=== PATIENT | female | born 1970 | race Caucasian/White ===

== ENCOUNTER → 2020-07-12 14:15 | Outpatient (CLI) | payer OTHER, MEDICAID, SELFPAY | PROVIDERS: Family Provider Nurse Practitioner Family; PCP Registered Nurse; Visit Provider Registered Nurse | DX: N39.0 Urinary tract infection, site not specified (principal) | CPT/HCPCS: 87077; 87086; 87186 ==

== ENCOUNTER 2020-11-09 13:13 | Emergency (ER) | payer OTHER, MEDICAID, SELFPAY ==
[2020-11-09 13:15] VITALS: BP 145/46; PULSE 92; RESP 16; TEMP 36.8; O2SAT 96; BMI 33.9
[2020-11-09 13:19] VITALS: BP 145/66; PULSE 106; O2SAT 94
--- NOTE | 2020-11-09 13:29 | ED.GENADULT ---
HPI - General Adult General Chief complaint: Shortness of Breath/Dyspnea Stated complaint: swelling in feet and legs Time Seen by Provider: 11/09/20 13:21 Source: patient Mode of arrival: Ambulatory Limitations: no limitations History of Present Illness HPI narrative: Patient is a 50-year-old female here for evaluation of bilateral lower extremity swelling. She states she has had swelling like this in the past and has been on hydrochlorothiazide in the past because of the swelling. This is prescribed by her primary provider. She has not been on for the past month because she ran out of the medication. States that normally his gets better when she goes home and 6 her feet up. Approximately 1 week ago she was seen in outside facility for strong smelling urine and the a cat bite to her right finger. She was put on Augmentin and she thinks that these symptoms have improved however she states that for the past several days she has had constant swelling in her lower legs despite keeping her legs elevated. No dyspnea on exertion however she states that she does get somewhat short of breath at night. No chest pain. Related Data Previous Rx's Medication Instructions Recorded hydrochlorothiazide 25 mg PO DAILY #30 tab 11/09/20 Allergies Allergy/AdvReac Type Severity Reaction Status Date / Time codeine [CODEINE] Allergy Mild Verified 11/09/20 13:21 ibuprofen [IBUPROFEN] AdvReac Mild HEADACHES Verified 11/09/20 13:21 Review of Systems Constitutional Constitutional: Denies fever(s) Cardiovascular Cardiovascular: Denies chest pain Respiratory Comments: Shortness of breath at night Gastrointestinal Gastrointestinal: Reports abdominal pain, Denies nausea and Denies vomiting Musculoskeletal Comments: Lower extremity swelling Integumentary/Breasts Skin/Breast: Denies rash Neurologic Neurologic: Denies behavioral changes Psychiatric Psychiatric: Denies behavioral changes Hematologic/Lymphatic On Anticoagulants: No Allergic/Immunologic Allergic/Immunologic: Denies urticaria Patient History Medical History (Updated 11/09/20 @ 14:59 by Abelardo Mayer DO) Breast cancer screening Colon cancer screening Essential (primary) hypertension Generalized edema Obesity (BMI 30.0-34.9) Telangiectasia of skin Social History Smoking Status: Current every day smoker Smoking Status: Current every day smoker alcohol intake frequency: holidays/special occasions only Substance Use Type: does not use Exam Initial Vital Signs Initial Vital Signs: Vital Signs Temperature 98.3 F 11/09/20 13:15 Pulse Rate 92 H 11/09/20 13:15 Respiratory Rate 16 11/09/20 13:15 Blood Pressure 145/46 H 11/09/20 13:15 Pulse Oximetry 96 11/09/20 13:15 Const General: cooperative and comfortable Limitations: mental status not altered HENMT Head: normal to inspection and normocephalic Resp Effort & Inspection: normal respiratory effort Auscultation: clear to auscultation bilaterally Cardio Rate: tachycardic Rhythm: regular rhythm GI Inspection: non-distended Palpation: soft Skin Lesions: no lesions Rashes: no rashes Neuro General: patient alert, patient awake and patient oriented x3 Cognition: normal cognition Speech: speech normal Extrem General: edema (2+ bilateral lower extremities) Psych Appearance: grossly normal and well kempt Course Orders Ordered: ED Orders 11/09/20 13:28 XR chest 1V Stat EKG-12 Lead Stat 11/09/20 13:45 Complete Blood Count AUTO DIFF Stat Comprehensive Metabolic Panel Stat Lipase Stat NT-proBNP (BNP-Adult 18+) Stat Troponin & CK Cardiac Panel Stat Vital Signs Vital signs: Vital Signs - 8 hr 11/09/20 13:15 11/09/20 13:19 Temperature 98.3 F Pulse Rate 92 H 106 H Respiratory Rate 16 Blood Pressure 145/46 H 145/66 H Pulse Oximetry 96 94 Medical Decision Making Medical Records Medical records reviewed: Yes I reviewed the patient's medical records. Lab Data Lab results reviewed: Yes I reviewed the patient's lab results. Result diagrams: 11/09/20 13:45 11/09/20 13:45 Labs: Lab Results 11/09/20 11/09/20 Range/Units 13:45 13:45 WBC 5.0 (4.5-11.0) X10^3/uL RBC 3.62 L (4.0-5.2) X10^6/uL Hgb 11.0 L (12.0-16.0) g/dL Hct 33.5 L (36-46) % MCV 92.5 (80-100) fL MCH 30.4 (26-34) PG MCHC 32.9 (30-36) % RDW 15.0 H (11.6-14.8) % Plt Count 89 L (150-400) X10^3/uL Neut % (Auto) 47.8 L (50-75) % Lymph % (Auto) 44.3 H (25-40) % [place] % (Auto) 6.5 (3-14) % Eos % (Auto) 0.9 L (2-4) % Baso % (Auto) 0.5 (0-2) % Neut # (Auto) 2400 (0609-8534) /uL Lymph # (Auto) 2200 (9147-1515) /uL [place] # (Auto) 300 (0-900) /uL Eos # (Auto) 0 (0-450) /uL Baso # (Auto) 0 (0-100) /uL Sodium 136 L (137-145) mmol/L Potassium 3.7 (3.4-5.1) mmol/L Chloride 108 H (98-107) mmol/L Carbon Dioxide 28 (22-32) mmol/L BUN 9 (7-17) mg/dL Creatinine 0.37 L (0.52-1.04) mg/dL Estimated GFR > 60.0 (>60) mL/min BUN/Creatinine Ratio 24.3 H (6-22) Glucose 130 H (70-100) mg/dL Calcium 7.8 L (8.4-10.2) mg/dL Total Bilirubin 0.8 (0.2-1.3) mg/dL AST 425 H (14-36) IU/L ALT 374 H (<35) IU/L Alkaline Phosphatase 186 H (38-126) U/L Total Creatine Kinase 114 (30-135) U/L CK-MB (CK-2) 1.12 (<2.37) ng/mL CK-MB (CK-2) Rel Index 1.0 L (1.5-5.0) % Troponin I < 0.012 (0.01-0.034) ng/mL NT-Pro-B Natriuret Pep 161 H (<125) pg/mL Total Protein 6.3 (6.3-8.2) g/dL Albumin 2.9 L (3.5-5.0) g/dL Globulin 3.4 (1.7-4.1) g/dL Albumin/Globulin Ratio 0.9 L (1.0-2.8) Lipase 105 (23-300) U/L Imaging Data Chest x-ray: Radiologist's Impression: [facility] [place] [id number] ReportSigned Patient: [facility]#: [id number]: [id number]:[id number]/Sex: 50 / FDate of Service: 11/09/20Loc: EDAccession Number: [id number] Procedure: XR chest 1V Ordering Provider: Abelardo Mayer D.O. PROCEDURE: XR CHEST 1V INDICATIONS: SOB TECHNIQUE: One view of the chest was acquired. COMPARISON: [facility], CHEST 2 VIEW, 07/08/2013, 15:55. FINDINGS: Overlying EKG wires. Surgical changes and devices: None. Lungs and pleura: Lungs are clear. No pleural effusions or pneumothorax. Mediastinum: Mediastinal contours appear normal. Heart size is normal. Bones and chest wall: No suspicious bony lesions. Remote right-sided 7th rib fracture. Previously noted left sided rib fracture not well evaluated. No acute osseous abnormality. Overlying soft tissues appear unremarkable. IMPRESSION: No evidence of an acute cardiopulmonary abnormality. Dictated by: Marcial Thomas D.O. on 11/09/2020 at 13:24 Approved by: Marcial Thomas D.O. on 11/09/2020 at 13:26 ECG Data Attestation: I personally reviewed and interpreted this ECG as follows: Prior ECG tracings: not available for review Interpretation: Sinus rhythm Ventricular rate 82 Normal axis Normal QRS Normal QTC No ST T wave changes MDM Narrative Medical decision making narrative: Patient not clinically in heart failure. Her labs also do not confirm our failure. She does have an elevated liver enzymes. She states she has never been told this before. EKG is unremarkable. She has had lower extremity swelling in the past. Plan will be is to place her back on her hydrochlorothiazide. This is like chronically transmitted the pharmacy of her choice. Will have her contact her primary provider for follow-up with regard to her lower extremity swelling and her elevated liver enzymes. I have low suspicion for DVT. No signs of cellulitis. She was given return precautions. She expressed understanding and agreement. Discharge Plan Departure Patient Disposition: Home Clinical Impression: Edema of lower extremity, Elevated liver enzymes Instructions: DI for Peripheral Edema -- Bilateral Activity Restrictions/Additional Instructions: A prescription for the hydrochlorothiazide is electronically transmitted to [facility] per your request. I recommend you contact your primary provider for follow-up to discuss here lower extremity swelling and also the elevated liver enzymes on your labs today. Return to the emergency department for any new or worsening symptoms Prescriptions: New hydrochlorothiazide 25 mg tablet 25 mg PO DAILY Qty: 30 RF: 0 Referrals: Margaret Escudero ARNP [Primary Care Provider] -
[2020-11-09 13:30] VITALS: BP 129/62; PULSE 84; O2SAT 97
[2020-11-09 13:54] LABS: Add Manual Diff / Slide Review NO; Basophils Absolute Auto 0 /uL (0-100); Basophils Percent Auto 0.5 % (0-2); Eosinophils Absolute Auto 0 /uL (0-450); Eosinophils Percent Auto 0.9 % (2-4); Hematocrit 33.5 % (36-46); Lymphocytes Absolute Auto 2200 /uL (1100-4500); Lymphocytes Percent Auto 44.3 % (25-40); Mean Corpuscular HGB Conc 32.9 % (30-36); Mean Corpuscular Hemoglobin 30.4 PG (26-34); Mean Corpuscular Volume 92.5 fL (80-100); Monocytes Absolute Auto 300 /uL (0-900); Monocytes Percent Auto 6.5 % (3-14); Neutrophils Absolute Auto 2400 /uL (1500-7000); Neutrophils Percent Auto 47.8 % (50-75); Platelet Count 89 X10^3/uL (150-400); Red Blood Cell Count 3.62 X10^6/uL (4.0-5.2)
[2020-11-09 14:00] VITALS: BP 126/63; PULSE 75; O2SAT 99
[2020-11-09 14:06] LABS: Alanine Aminotransferase 374 IU/L (<35); Albumin 2.9 g/dL (3.5-5.0); Albumin Globulin Ratio 0.9 (1.0-2.8); Alkaline Phosphatase 186 U/L (38-126); Aspartate Aminotransferase 425 IU/L (14-36); BUN Creatinine Ratio 24.3 (6-22); Bilirubin Total 0.8 mg/dL (0.2-1.3); Blood Urea Nitrogen 9 mg/dL (7-17); Calcium 7.8 mg/dL (8.4-10.2); Carbon Dioxide 28 mmol/L (22-32); Chloride 108 mmol/L (98-107); Creatine Kinase 114 U/L (30-135); Estimated Glomerular Filt Rate > 60.0 mL/min (>60); Globulin 3.4 g/dL (1.7-4.1); Glucose 130 mg/dL (70-100); HEMOLYSIS < 15 (0-50); Lipase 105 U/L (23-300); Potassium 3.7 mmol/L (3.4-5.1); Sodium 136 mmol/L (137-145); Total Protein 6.3 g/dL (6.3-8.2)
[2020-11-09 14:18] LABS: NT-proBNP (BNP-Adult 18+) 161 pg/mL (<125); Troponin I < 0.012 ng/mL (0.01-0.034)
[2020-11-09 14:21] LABS: Creatine Kinase MB 1.12 ng/mL (<2.37)
[2020-11-09 14:30] VITALS: BP 135/70; PULSE 74; O2SAT 100
== END 2020-11-09 15:20 | disposition home or self-care (01) ==
PROVIDERS: Emergency Provider Emergency Medicine; Family Provider Nurse Practitioner Family; PCP Registered Nurse
DX: R60.0 Localized edema (principal); R74.8 Abnormal levels of other serum enzymes; R06.02 Shortness of breath; R10.9 Unspecified abdominal pain; I10 Essential (primary) hypertension; E66.9 Obesity, unspecified; Z68.33 Body mass index [BMI] 33.0-33.9, adult
CPT/HCPCS: 36415; 71045; 80053; 82550; 82553; 83690; 83880; 84484; 85025; 93005; 93010; 99283; 99284

== ENCOUNTER → 2020-12-06 09:19 | Outpatient (CLI) | payer OTHER, MEDICAID, SELFPAY ==
[2020-12-06 09:52] LABS: Add Manual Diff / Slide Review NO; Basophils Absolute Auto 0 /uL (0-100); Basophils Percent Auto 0.5 % (0-2); Eosinophils Absolute Auto 0 /uL (0-450); Eosinophils Percent Auto 0.7 % (2-4); Hematocrit 36.5 % (36-46); Hemoglobin 12.1 g/dL (12.0-16.0); Lymphocytes Absolute Auto 2000 /uL (1100-4500); Lymphocytes Percent Auto 41.2 % (25-40); Mean Corpuscular Hemoglobin 30.2 PG (26-34); Mean Corpuscular Volume 91.2 fL (80-100); Monocytes Absolute Auto 300 /uL (0-900); Monocytes Percent Auto 6.2 % (3-14); Neutrophils Absolute Auto 2500 /uL (1500-7000); Neutrophils Percent Auto 51.4 % (50-75); Platelet Count 96 X10^3/uL (150-400); Red Cell Distribution Width 14.5 % (11.6-14.8); White Blood Cell Count 4.8 X10^3/uL (4.5-11.0)
[2020-12-06 10:04] LABS: Alanine Aminotransferase 420 IU/L (<35); Albumin 3.3 g/dL (3.5-5.0); Albumin Globulin Ratio 0.9 (1.0-2.8); Alkaline Phosphatase 193 U/L (38-126); Aspartate Aminotransferase 528 IU/L (14-36); BUN Creatinine Ratio 26.5 (6-22); Bilirubin Total 1.6 mg/dL (0.2-1.3); Blood Urea Nitrogen 13 mg/dL (7-17); Calcium 8.5 mg/dL (8.4-10.2); Carbon Dioxide 30 mmol/L (22-32); Chloride 105 mmol/L (98-107); Cholesterol 200 mg/dL (140-199); Estimated Glomerular Filt Rate > 60.0 mL/min (>60); Globulin 3.6 g/dL (1.7-4.1); Glucose 109 mg/dL (70-100); HDL Cholesterol 82 mg/dL (40-60); HEMOLYSIS < 15 (0-50); LDL Cholesterol Calculated 106 mg/dL (<100); Potassium 3.3 mmol/L (3.4-5.1); Sodium 136 mmol/L (137-145); Total Protein 6.9 g/dL (6.3-8.2); Triglycerides 58 mg/dL (35-150)
[2020-12-06 10:37] LABS: Ferritin 20 ng/mL (11-264)
[2020-12-06 10:44] LABS: Total Iron Binding Capacity 533 ug/dL (265-497)
[2020-12-06 10:53] LABS: Free T4, Direct Thyroxine 0.89 ng/dL (0.78-2.19)
[2020-12-06 11:07] LABS: Thyroid Stimulating Hormone 1.61 uIU/mL (0.47-4.68)
[2020-12-16 17:51] LABS: HBsAg Screen Negative (Negative); Hepatitis A Antibody IgM Negative (Negative); Hepatitis B Core Antibody IgM Negative (Negative); Hepatitis C Antibody >11.0 s/co ratio (0.0-0.9); Hepatitis C Quant 309000 IU/mL (.)
== END ==
PROVIDERS: Family Provider Nurse Practitioner Family; PCP Registered Nurse; Referring Provider Registered Nurse; Visit Provider Registered Nurse
DX: R53.83 Other fatigue (principal); E66.9 Obesity, unspecified; I10 Essential (primary) hypertension; R60.1 Generalized edema; D64.9 Anemia, unspecified; R74.8 Abnormal levels of other serum enzymes
CPT/HCPCS: 36415; 80053; 80061; 80074; 82105; 82728; 83550; 84439; 84443; 85025; 87522

== ENCOUNTER → 2020-12-19 11:40 | Outpatient (CLI) | payer OTHER, MEDICAID, SELFPAY ==
--- NOTE | 2020-12-19 | DI.CT.S_ITS ---
PROCEDURE: CT ABDOMEN W CON INDICATIONS: Elevated liver enzymes. Abnormal labs TECHNIQUE: After the administration of intravenous contrast, 5 mm thick sections acquired from the diaphragm to the iliac crests. 5 mm coronal and sagittal reformats were performed. For radiation dose reduction, the following was used: automated exposure control, adjustment of mA and/or kV according to patient size. COMPARISON: [facility], CT, PE STUDY (CTA CHEST), 01/01/2012, 19:54. FINDINGS: Image quality: Excellent. Lung bases: Lung bases are clear. Heart size is normal. Small hiatal hernia. Solid organs: Liver is normal in size and enhancement. Subtle nodular contour of liver suggesting cirrhosis. Gallbladder is normal . Biliary system is non dilated. Pancreas enhances normally. Spleen is mildly enlarged. Calcific foci in liver and spleen are compatible with old granulomas. No adrenal nodules. Kidneys demonstrate normal size and enhancement, without hydronephrosis. Peritoneum and bowel: There is gastric antral thickening. Bowel loops demonstrate normal wall thickness and caliber. There is a trace amount of free fluid around the liver and in the right pericolic gutter. No free air. Nodes and vessels: No retroperitoneal or mesenteric adenopathy by size criteria. Aorta and inferior vena cava are normal in size. Miscellaneous: A small fat containing umbilical hernia is noted. There are old 9th and 10th rib fractures. Mild degenerative changes noted in the lower thoracic and lumbar spine. Benign appearing sclerosis of the left sacral ala may be secondary to old trauma. IMPRESSION: 1. Liver demonstrates subtle nodular contour suggesting cirrhosis. 2. Mild splenomegaly. 3. Calcific foci in the liver and spleen are consistent with remote granulomatous disease. 4. Gastric antral thickening. This finding may be secondary to peptic ulcer disease. Recommend clinical correlation and follow-up. Dictated by: Gina Saldaña M.D. on 12/19/2020 at 12:52 Approved by: Gina Saldaña M.D. on 12/19/2020 at 12:59
== END ==
PROVIDERS: Family Provider Nurse Practitioner Family; PCP Registered Nurse; Referring Provider Registered Nurse; Visit Provider Registered Nurse
DX: R74.8 Abnormal levels of other serum enzymes (principal); R16.1 Splenomegaly, not elsewhere classified
CPT/HCPCS: 74160; Q9967

== ENCOUNTER 2021-01-14 14:41 | Emergency (ER) | payer OTHER, MEDICAID, SELFPAY ==
[2021-01-14 14:48] VITALS: BP 124/58; PULSE 102; RESP 20; TEMP 36.8; O2SAT 98
--- NOTE | 2021-01-14 15:03 | ED.ABDPAIN ---
HPI - Abdominal Pain General Chief Complaint: Abdominal Pain Stated Complaint: pain in stomach Time Seen by Provider: 01/14/21 15:01 Source: patient Mode of arrival: Ambulatory Limitations: no limitations History of Present Illness HPI narrative: 50-year-old female smoker has recently been diagnosed with hepatitis C and cirrhotic changes to her liver presents with a chief complaint of severe left lower quadrant pain over the past day. She has had no fever or chills. She denies any dizziness, weakness or lightheadedness. She has had no chest pain or shortness of breath. Her pain is made worse by motion and improves with rest. She denies any radiation of pain. She's had no diarrhea or even loose stools Related Data Previous Rx's Medication Instructions Recorded hydrochlorothiazide 25 mg tablet 25 mg PO DAILY #30 tab 12/06/20 ondansetron 4 mg disintegrating 4 mg PO Q8H PRN 30 Days #90 tab 12/30/20 tablet amoxicillin-pot clavulanate 1 tab PO BID #20 tab 01/14/21 [Augmentin] oxycodone 5 mg PO Q4-6H PRN #10 tab 01/14/21 Allergies Allergy/AdvReac Type Severity Reaction Status Date / Time codeine [CODEINE] Allergy Mild Verified 12/06/20 08:41 ibuprofen [IBUPROFEN] AdvReac Mild HEADACHES Verified 12/06/20 08:41 Review of Systems Constitutional Constitutional: Denies chills, Denies fatigue, Denies fever(s), Denies frequent falls, Denies lethargy and Denies weakness Eyes Eyes: Denies change in vision, Denies eye discharge, Denies irritation and Denies loss of vision ENT Ears, Nose, Mouth, and Throat: Denies change in voice, Denies dizziness, Denies neck pain, Denies sore throat and Denies throat swelling Cardiovascular Cardiovascular: Denies chest pain, Denies irregular heart rhythm, Denies lightheadedness, Denies palpitations, Denies dyspnea, Denies dyspnea on exertion and Denies orthopnea Respiratory Respiratory: Denies cough, Denies dyspnea, Denies dyspnea on exertion and Denies wheezing Gastrointestinal Gastrointestinal: Reports abdominal pain, Denies change in bowel habits, Denies diarrhea, Denies nausea and Denies vomiting Musculoskeletal Musculoskeletal: Denies neck pain and Denies numbness Integumentary/Breasts Skin/Breast: Denies pruritus, Denies erythema, Denies rash and Denies wounds Neurologic Neurologic: Denies behavioral changes, Denies confusion, Denies dizziness, Denies frequent falls, Denies loss of vision, Denies numbness and Denies weakness Psychiatric Psychiatric: Denies anxiety, Denies behavioral changes, Denies confusion, Denies depression, Denies homicidal ideation and Denies suicidal ideation Endocrine Endocrine: Denies fatigue, Denies flushing and Denies palpitations Hematologic/Lymphatic Hematologic/Lymphatic: Denies easy bruising Allergic/Immunologic Allergic/Immunologic: Denies urticaria, Denies throat swelling and Denies wheezing Patient History Medical History (Updated 01/14/21 @ 17:04 by Osbaldo Mayes DO) Breast cancer screening Colon cancer screening Essential (primary) hypertension Generalized edema Obesity (BMI 30.0-34.9) Telangiectasia of skin Social History Smoking Status: Current every day smoker Smoking Status: Current every day smoker alcohol intake frequency: holidays/special occasions only Substance Use Type: does not use Exam Narrative Exam Narrative: GENERAL: [50] year old patient appears stated age. Well-nourished, well-developed patient, in mild distress. HEAD: Atraumatic. Normocephalic. EYES: Pupils equal round and reactive. Extraocular motions intact. No scleral icterus. No injection or drainage. ENT: Nose without bleeding, purulent drainage. Throat without erythema, tonsillar hypertrophy or exudate. Airway patent. NECK: Trachea midline. Non tender CARDIOVASCULAR: Regular rate and rhythm without murmurs, gallops, or rubs. RESPIRATORY: Clear to auscultation. Breath sounds equal bilaterally. No wheezes, rales, or rhonchi. GASTROINTESTINAL: Abdomen soft, left lower quadrant tenderness without rebound, nondistended. Bowel sounds present in all 4 quadrants EXTREMITIES: No edema or joint tenderness. BACK: Nontender without deformity or crepitance. No flank tenderness. NEURO: AOx3. SKIN: No rash or erythema of visible areas Initial Vital Signs Initial Vital Signs: Vital Signs Temperature 98.2 F 01/14/21 14:48 Pulse Rate 102 H 01/14/21 14:48 Respiratory Rate 20 01/14/21 14:48 Blood Pressure 124/58 L 01/14/21 14:48 Pulse Oximetry 98 01/14/21 14:48 Course Orders Ordered: ED Orders 01/14/21 15:00 Complete Blood Count AUTO DIFF Stat Comprehensive Metabolic Panel Stat Lipase Stat Partial Thromboplastin Time Stat Prothrombin Time INR Stat EKG-12 Lead Stat 01/14/21 15:20 UA Complete [Urinalysis and Microscopic] Stat 01/14/21 15:23 CT abdomen pelvis w con Stat Ondansetron HCl (Ondansetron 4 Mg/2 Ml Inj) 4 mg IV Q4HR PRN PRN Reason: Nausea And Vomiting Last Admin: 01/14/21 15:38 Dose: 4 mg Documented by: YESENIA Discontinued Medications Hydromorphone HCl (Hydromorphone 0.5 Mg Inj) 0.5 mg IV NOW ONE Stop: 01/14/21 15:25 Last Admin: 01/14/21 15:38 Dose: 0.5 mg Documented by: YESENIA Sodium Chloride (Normal Saline 0.9%) 1,000 mls @ 1,000 mls/hr IV BOLUS ONE Stop: 01/14/21 16:23 Last Admin: 01/14/21 15:38 Dose: 1,000 mls/hr Documented by: YESENIA Vital Signs Vital signs: Vital Signs - 8 hr 01/14/21 14:48 Temperature 98.2 F Pulse Rate 102 H Respiratory Rate 20 Blood Pressure 124/58 L Pulse Oximetry 98 MDM - Abdominal Pain Lab Data Result diagrams: 01/14/21 15:00 01/14/21 15:00 Labs: Lab Results 01/14/21 01/14/21 01/14/21 Range/Units 15:00 15:00 15:00 WBC 6.3 (4.5-11.0) X10^3/uL RBC 4.07 (4.0-5.2) X10^6/uL Hgb 12.1 (12.0-16.0) g/dL Hct 37.1 (36-46) % MCV 91.1 (80-100) fL MCH 29.7 (26-34) PG MCHC 32.5 (30-36) % RDW 15.2 H (11.6-14.8) % Plt Count 99 L (150-400) X10^3/uL Neut % (Auto) 58.1 (50-75) % Lymph % (Auto) 33.6 (25-40) % [place] % (Auto) 7.4 (3-14) % Eos % (Auto) 0.5 L (2-4) % Baso % (Auto) 0.4 (0-2) % Neut # (Auto) 3600 (9168-1495) /uL Lymph # (Auto) 2100 (6917-7632) /uL [place] # (Auto) 500 (0-900) /uL Eos # (Auto) 0 (0-450) /uL Baso # (Auto) 0 (0-100) /uL PT 12.5 (10.1-12.7) SECONDS INR 1.1 (0.9-1.3) APTT 39 H (26.4-36.2) SECONDS Sodium 137 (137-145) mmol/L Potassium 3.4 (3.4-5.1) mmol/L Chloride 103 (98-107) mmol/L Carbon Dioxide 30 (22-32) mmol/L BUN 13 (7-17) mg/dL Creatinine 0.51 L (0.52-1.04) mg/dL Estimated GFR > 60.0 (>60) mL/min BUN/Creatinine Ratio 25.5 H (6-22) Glucose 108 H (70-100) mg/dL Calcium 8.9 (8.4-10.2) mg/dL Total Bilirubin 1.1 (0.2-1.3) mg/dL AST 527 H (14-36) IU/L ALT 386 H (<35) IU/L Alkaline Phosphatase 181 H (38-126) U/L Total Protein 6.8 (6.3-8.2) g/dL Albumin 3.3 L (3.5-5.0) g/dL Globulin 3.5 (1.7-4.1) g/dL Albumin/Globulin Ratio 0.9 L (1.0-2.8) Lipase 109 (23-300) U/L Urine Color Urine Appearance Urine pH (4.5-8.0) Ur Specific [place] (1.000-1.035) Urine Protein (Negative) Urine Glucose (UA) (Negative) g/dL Urine Ketones (NEGATIVE) Urine Occult Blood (Negative) Urine Nitrate (Negative) Urine Bilirubin (NEGATIVE) Urine Urobilinogen (0.2) E.U./dL Ur Leukocyte Esterase (NEGATIVE) Urine RBC (0-5/HPF) Urine WBC (0-5/HPF) Ur Squamous Epith Cells (0-5/HPF) Amorphous Sediment Urine Bacteria (None) Hyaline Casts (None) Granular Casts (None) Ur Culture Indicated? 01/14/21 Range/Units 15:20 WBC (4.5-11.0) X10^3/uL RBC (4.0-5.2) X10^6/uL Hgb (12.0-16.0) g/dL Hct (36-46) % MCV (80-100) fL MCH (26-34) PG MCHC (30-36) % RDW (11.6-14.8) % Plt Count (150-400) X10^3/uL Neut % (Auto) (50-75) % Lymph % (Auto) (25-40) % [place] % (Auto) (3-14) % Eos % (Auto) (2-4) % Baso % (Auto) (0-2) % Neut # (Auto) (5475-8267) /uL Lymph # (Auto) (2567-1792) /uL [place] # (Auto) (0-900) /uL Eos # (Auto) (0-450) /uL Baso # (Auto) (0-100) /uL PT (10.1-12.7) SECONDS INR (0.9-1.3) APTT (26.4-36.2) SECONDS Sodium (137-145) mmol/L Potassium (3.4-5.1) mmol/L Chloride (98-107) mmol/L Carbon Dioxide (22-32) mmol/L BUN (7-17) mg/dL Creatinine (0.52-1.04) mg/dL Estimated GFR (>60) mL/min BUN/Creatinine Ratio (6-22) Glucose (70-100) mg/dL Calcium (8.4-10.2) mg/dL Total Bilirubin (0.2-1.3) mg/dL AST (14-36) IU/L ALT (<35) IU/L Alkaline Phosphatase (38-126) U/L Total Protein (6.3-8.2) g/dL Albumin (3.5-5.0) g/dL Globulin (1.7-4.1) g/dL Albumin/Globulin Ratio (1.0-2.8) Lipase (23-300) U/L Urine Color Yellow Urine Appearance Clear Urine pH 7.0 (4.5-8.0) Ur Specific [place] 1.025 (1.000-1.035) Urine Protein Trace H (Negative) Urine Glucose (UA) Negative (Negative) g/dL Urine Ketones Negative (NEGATIVE) Urine Occult Blood Negative (Negative) Urine Nitrate Negative (Negative) Urine Bilirubin Negative (NEGATIVE) Urine Urobilinogen 2.0 H (0.2) E.U./dL Ur Leukocyte Esterase Negative (NEGATIVE) Urine RBC None seen (0-5/HPF) Urine WBC 0-1/hpf (0-5/HPF) Ur Squamous Epith Cells 0-1 /hpf (0-5/HPF) Amorphous Sediment 1+ Urine Bacteria None seen (None) Hyaline Casts 0-1/lpf (None) Granular Casts 0-1/lpf (None) Ur Culture Indicated? Cult not indicated Imaging Data CT scan - abdomen/pelvis: Radiologist's Impression: [address] [id number] Scan ReportSigned Patient: Lana Felix SMR#: [id number]: [id number]:[id number]/Sex: 50 / FDate of Service: 01/14/21Loc: EDAccession Number: [id number] Procedure: CT abdomen pelvis w con Ordering Provider: Osbaldo Mayes D.O. PROCEDURE: CT ABDOMEN PELVIS W CON INDICATIONS: LLQ pain, diarrhea, bloody, terrible pain TECHNIQUE: After the administration of intravenous contrast, 5 mm thick sections acquired from the diaphragm to the symphysis. 5 mm coronal and sagittal reformats were acquired. For radiation dose reduction, the following was used: automated exposure control, adjustment of mA and/or kV according to patient size. COMPARISON: [facility], CT, CT ABDOMEN W CON, 12/19/2020, 11:43. [facility], CT, PE STUDY (CTA CHEST), 01/01/2012, 19:54. FINDINGS: Image quality: Excellent. ABDOMEN: Lung bases: Lung bases are clear. Heart size is normal. A small hiatal hernia is incidentally noted. Solid organs: Liver is normal in size and enhancement. Gallbladder wall is not thickened. Minimal pericholecystic fluid can be seen. Biliary system is non dilated. Pancreas enhances normally. Spleen is normal in size and enhancement. No adrenal nodules. Kidneys demonstrate normal size and enhancement, without hydronephrosis. Peritoneum and bowel: Generalized moderate wall thickening can be seen involving the proximal colon, beginning at the level of the cecum and extending through the proximal transverse colon. Surrounding inflammatory changes are seen, with fat stranding. No free air or significant free fluid can be seen. No loculated abscess collection can be seen. No dilated loops of small bowel are seen. No definite terminal ileum wall thickening can be seen. A normal appendix can be seen, as on series 2 images 62 through 66 Nodes and vessels: No retroperitoneal or mesenteric adenopathy by size criteria. Aorta and inferior vena cava are normal in size. Miscellaneous: A mild periumbilical hernia is seen, containing fat. PELVIS: Genitourinary: Bladder wall thickness is normal. This patient is status post hysterectomy. No adnexal masses are seen. Miscellaneous: No inguinal hernias or adenopathy. Bones: No suspicious bony lesions. No vertebral body compression fractures. Focal L2-L3 degenerative change is seen. Milder degenerative changes are seen elsewhere. IMPRESSION: Proximal colonic wall thickening can be seen. Please correlate with potential infectious and inflammatory causes of colitis, including C. difficile colitis. The appearance is clearly improved compared to the 12/19/2020 examination. No findings of perforation or abscess can be seen. A normal appendix is seen. Minimal pericholecystic fluid can again be seen. Incidental note is made of: Small hiatal hernia Fat containing periumbilical hernia Hysterectomy Focal L2-L3 degenerative change Dictated by: Nigel Aguilar M.D. on 01/14/2021 at 15:15 Approved by: Nigel Aguilar M.D. on 01/14/2021 at 15:20 MDM Narrative Medical decision making narrative: Colitis and diverticulitis considered the most likely diagnoses given the patient's story and exam. This is consistent with labs and imaging. There is some discussion about the possibility of C diff colitis on the CT, however given lack of loose stools or even leukocytosis this is unlikely. I did discuss various possible diagnoses with the patient and she agrees with the plan and understands return precautions. Questions answered to her apparent satisfaction Discharge Plan Departure Patient Disposition: Home Clinical Impression: Colitis Instructions: DI for Colitis Activity Restrictions/Additional Instructions: *You have been diagnosed with [left lower quadrant pain due to colitis. Labs are very reassuring] *What to do: *Take medications as directed: Prescriptions electronically transmitted to [facility] in [place] *Follow up with your primary care provider in 2-3 days, call for an appointment. Let them know you were seen in the Emergency Department and that we ask that you be seen in follow up *Return to ER if you should have any new, worsening or concerning symptoms, such as [increasing pain, fever, shaking chills, other bothersome symptoms] Prescriptions: New amoxicillin-pot clavulanate [Augmentin] 875-125 mg tablet 1 tab PO BID Qty: 20 RF: 0 oxycodone 5 mg tablet 5 mg PO Q4-6H PRN (Reason: pain) Qty: 10 RF: 0 No Action hydrochlorothiazide 25 mg tablet 25 mg PO DAILY Qty: 30 RF: 2 ondansetron 4 mg tablet,disintegrating 4 mg PO Q8H PRN (Reason: nausea and vomiting) 30 Days Qty: 90 RF: 0 Referrals: Margaret Escudero ARNP [Primary Care Provider] -
--- NOTE | 2021-01-14 15:23 | DI.CT.S_ITS ---
PROCEDURE: CT ABDOMEN PELVIS W CON INDICATIONS: LLQ pain, diarrhea, bloody, terrible pain TECHNIQUE: After the administration of intravenous contrast, 5 mm thick sections acquired from the diaphragm to the symphysis. 5 mm coronal and sagittal reformats were acquired. For radiation dose reduction, the following was used: automated exposure control, adjustment of mA and/or kV according to patient size. COMPARISON: [facility], CT, CT ABDOMEN W CON, 12/19/2020, 11:43. [facility], CT, PE STUDY (CTA CHEST), 01/01/2012, 19:54. FINDINGS: Image quality: Excellent. ABDOMEN: Lung bases: Lung bases are clear. Heart size is normal. A small hiatal hernia is incidentally noted. Solid organs: Liver is normal in size and enhancement. Gallbladder wall is not thickened. Minimal pericholecystic fluid can be seen. Biliary system is non dilated. Pancreas enhances normally. Spleen is normal in size and enhancement. No adrenal nodules. Kidneys demonstrate normal size and enhancement, without hydronephrosis. Peritoneum and bowel: Generalized moderate wall thickening can be seen involving the proximal colon, beginning at the level of the cecum and extending through the proximal transverse colon. Surrounding inflammatory changes are seen, with fat stranding. No free air or significant free fluid can be seen. No loculated abscess collection can be seen. No dilated loops of small bowel are seen. No definite terminal ileum wall thickening can be seen. A normal appendix can be seen, as on series 2 images 62 through 66 Nodes and vessels: No retroperitoneal or mesenteric adenopathy by size criteria. Aorta and inferior vena cava are normal in size. Miscellaneous: A mild periumbilical hernia is seen, containing fat. PELVIS: Genitourinary: Bladder wall thickness is normal. This patient is status post hysterectomy. No adnexal masses are seen. Miscellaneous: No inguinal hernias or adenopathy. Bones: No suspicious bony lesions. No vertebral body compression fractures. Focal L2-L3 degenerative change is seen. Milder degenerative changes are seen elsewhere. IMPRESSION: Proximal colonic wall thickening can be seen. Please correlate with potential infectious and inflammatory causes of colitis, including C. difficile colitis. The appearance is clearly improved compared to the 12/19/2020 examination. No findings of perforation or abscess can be seen. A normal appendix is seen. Minimal pericholecystic fluid can again be seen. Incidental note is made of: Small hiatal hernia Fat containing periumbilical hernia Hysterectomy Focal L2-L3 degenerative change Dictated by: Nigel Aguilar M.D. on 01/14/2021 at 15:15 Approved by: Nigel Aguilar M.D. on 01/14/2021 at 15:20
[2021-01-14 15:31] LABS: Add Manual Diff / Slide Review NO; Basophils Absolute Auto 0 /uL (0-100); Basophils Percent Auto 0.4 % (0-2); Eosinophils Absolute Auto 0 /uL (0-450); Eosinophils Percent Auto 0.5 % (2-4); Hematocrit 37.1 % (36-46); Hemoglobin 12.1 g/dL (12.0-16.0); Lymphocytes Absolute Auto 2100 /uL (1100-4500); Lymphocytes Percent Auto 33.6 % (25-40); Mean Corpuscular HGB Conc 32.5 % (30-36); Mean Corpuscular Hemoglobin 29.7 PG (26-34); Mean Corpuscular Volume 91.1 fL (80-100); Monocytes Absolute Auto 500 /uL (0-900); Monocytes Percent Auto 7.4 % (3-14); Neutrophils Absolute Auto 3600 /uL (1500-7000); Neutrophils Percent Auto 58.1 % (50-75); Platelet Count 99 X10^3/uL (150-400); Red Blood Cell Count 4.07 X10^6/uL (4.0-5.2); Red Cell Distribution Width 15.2 % (11.6-14.8); White Blood Cell Count 6.3 X10^3/uL (4.5-11.0)
[2021-01-14] MEDS: HYDROMORPHONE 0.5 MG INJ IV (15:38)
[2021-01-14] MEDS: ONDANSETRON 4 MG/2 ML INJ IV (15:38)
[2021-01-14] MEDS: SODIUM CHLORIDE 0.9% 1,000 ML 1000 ML IV (15:38)
[2021-01-14 15:41] LABS: INR 1.1 (0.9-1.3); Prothrombin Time 12.5 SECONDS (10.1-12.7)
[2021-01-14 15:43] LABS: PTT Partial Thromboplastin Tim 39 SECONDS (26.4-36.2)
[2021-01-14 15:45] LABS: Alanine Aminotransferase 386 IU/L (<35); Albumin 3.3 g/dL (3.5-5.0); Albumin Globulin Ratio 0.9 (1.0-2.8); Alkaline Phosphatase 181 U/L (38-126); Aspartate Aminotransferase 527 IU/L (14-36); BUN Creatinine Ratio 25.5 (6-22); Bilirubin Total 1.1 mg/dL (0.2-1.3); Blood Urea Nitrogen 13 mg/dL (7-17); Calcium 8.9 mg/dL (8.4-10.2); Carbon Dioxide 30 mmol/L (22-32); Chloride 103 mmol/L (98-107); Estimated Glomerular Filt Rate > 60.0 mL/min (>60); Globulin 3.5 g/dL (1.7-4.1); Glucose 108 mg/dL (70-100); HEMOLYSIS < 15 (0-50); Lipase 109 U/L (23-300); Potassium 3.4 mmol/L (3.4-5.1); Sodium 137 mmol/L (137-145); Total Protein 6.8 g/dL (6.3-8.2)
[2021-01-14 16:24] LABS: Bacteria Urine None Seen; RBC Urine None Seen (0-5/HPF)
[2021-01-14 16:27] LABS: Appearance Urine UA CLEAR; Bilirubin Urine UA NEGATIVE (NEGATIVE); Color Urine UA YELLOW; Glucose Urine UA NEGATIVE (Negative); Ketones Urine UA NEGATIVE (NEGATIVE); Leukocyte Esterase Urine UA NEGATIVE (NEGATIVE); Nitrite Urine UA NEGATIVE (Negative); Occult Blood Urine UA NEGATIVE (Negative); Protein Urine UA TRACE (Negative); Specific Gravity Urine UA 1.025 (1.000-1.035)
[2021-01-14 17:00] LABS: Amorphous Sediment Urine 1+; Culture Indicated Urine Cult Not Indicated; Granular Casts Urine 0-1/LPF; Hyaline Casts Urine 0-1/LPF; Squamous Epithelial Cell Urine 0-1 /HPF (0-5/HPF); WBC Urine 0-1/HPF (0-5/HPF)
[2021-01-14 17:13] VITALS: BP 128/60; PULSE 64; RESP 16; O2SAT 97
--- NOTE | 2021-01-27 07:44 | PC.NURSE ---
late entry, Normal saline one liter infused 1640
== END 2021-01-14 17:15 | disposition home or self-care (01) ==
PROVIDERS: Emergency Provider Emergency Medicine; Family Provider Nurse Practitioner Family; PCP Registered Nurse
DX: K52.9 Noninfective gastroenteritis and colitis, unspecified (principal)
CPT/HCPCS: 36415; 74177; 80053; 81001; 83690; 85025; 85610; 85730; 93005; 93010; 96361; 96374; 96375; 99284; J1170; J2405

== ENCOUNTER → 2021-04-01 10:07 | Outpatient (CLI) | payer OTHER, MEDICAID, SELFPAY ==
--- NOTE | 2021-04-01 10:09 | DI.RAD.S_ITS ---
PROCEDURE: XR CHEST 2V INDICATIONS: rhonchi TECHNIQUE: 2 views of the chest were acquired. COMPARISON: [facility], CR, XR CHEST 1V, 11/09/2020, 13:31. FINDINGS: Surgical changes and devices: None. Lungs and pleura: Diffuse interstitial prominence. Lungs are clear. No pleural effusions or pneumothorax. Mediastinum: Mediastinal contours are normal. Heart size is normal. Bones and chest wall: No suspicious bony abnormalities. Soft tissues appear unremarkable. Old right 7 rib fracture is noted. IMPRESSION: No acute cardiopulmonary disease. Dictated by: Gina Saldaña M.D. on 04/01/2021 at 12:49 Approved by: Gina Saldaña M.D. on 04/01/2021 at 12:51
== END ==
PROVIDERS: Family Provider Nurse Practitioner Family; PCP Registered Nurse; Referring Provider Registered Nurse; Visit Provider Registered Nurse
DX: R09.89 Other specified symptoms and signs involving the circulatory and respiratory systems (principal)
CPT/HCPCS: 71046

== ENCOUNTER 2021-05-31 13:09 | Emergency (ER) | payer OTHER, MEDICAID, SELFPAY ==
[2021-05-31 13:22] VITALS: BP 123/83; PULSE 69; RESP 16; TEMP 36.4; O2SAT 99; BMI 25.8
--- NOTE | 2021-05-31 13:23 | ED_ITS ---
HPI - Recheck/Abnormal Lab/Rx <Anival Starr PA-C - Last Filed: 05/31/21 13:50> General Chief Complaint: Recheck/Abnormal Lab/Rx Stated Complaint: Covid+ got infusion-needs another test for PCP Time Seen by Provider: 05/31/21 13:23 History of Present Illness HPI narrative: Lana presents today with chief complaint of requesting a repeat COVID test. She tested positive 1 week ago when she was getting an infusion for her hepatitis C. they recommended that she take vitamin C, zinc and get a repeat test in 7 days. Her only symptoms were a mild headache and some sinus congestion which have now resolved. She denies any chest pain, shortness of breath, fever, continued headache, neck stiffness, nausea, vomiting, diarrhea, constipation or any other acute concerns or complaints at this time. Related Data Home Medications Medication Instructions Recorded Confirmed One a Day PO 04/18/21 04/18/21 Previous Rx's Medication Instructions Recorded omeprazole 40 mg capsule,delayed 40 mg PO DAILY #30 cap 04/01/21 release hydrochlorothiazide 25 mg tablet 25 mg PO DAILY #90 tab 04/10/21 cyclobenzaprine 10 mg tablet 10 mg PO BEDTIME PRN #30 tab 04/18/21 ondansetron 8 mg disintegrating 8 mg PO Q8H PRN #90 tab 04/18/21 tablet Allergies Allergy/AdvReac Type Severity Reaction Status Date / Time codeine [CODEINE] Allergy Mild Verified 05/31/21 13:28 ibuprofen [IBUPROFEN] AdvReac Mild HEADACHES Verified 05/31/21 13:28 Review of Systems <Anival Starr PA-C - Last Filed: 05/31/21 13:50> Review of Systems Narrative: As per HPI Patient History <Anival Starr PA-C - Last Filed: 05/31/21 13:50> Medical History Breast cancer screening Colon cancer screening Essential (primary) hypertension Generalized edema Heart murmur Hyperlipidemia Obesity (BMI 30.0-34.9) Palpitation Rhonchi Telangiectasia of skin Social History Smoking Status: Current every day smoker Smoking Status: Current every day smoker alcohol intake frequency: holidays/special occasions only Substance Use Type: does not use Exam <Anival Starr PA-C - Last Filed: 05/31/21 13:50> Narrative Exam Narrative: Const General: cooperative, healthy appearing, comfortable and no acute distress Nutritional Appearance: Elevated BMI and well nourished Orientation: alert and oriented x3 [facility] Head: normal to inspection and normocephalic Ears: hearing grossly normal bilaterally, external ears normal Nose: external nose normal, nares normal and no nasal discharge Face and sinus: normal facial exam, sinuses nontender and face symmetric Eyes periorbital findings normal, eyelids normal, conjunctivae normal Neck: normal visual inspection, full ROM, no lymphadenopathy, no meningeal signs and supple Resp normal respiratory effort, able to speak in complete sentences, not labored and no respiratory distress, clear to auscultation bilaterally, no crackles, no rales and no wheezes Cardio regular rate regular rhythm Heart Sounds: no gallops, no murmurs and no rubs Neuro Alert and Oriented x3, normal gait, moves all extremities. Initial Vital Signs Initial Vital Signs: Vital Signs Temperature 97.5 F L 05/31/21 13:22 Pulse Rate 69 05/31/21 13:22 Respiratory Rate 16 05/31/21 13:22 Blood Pressure 123/83 05/31/21 13:22 Pulse Oximetry 99 05/31/21 13:22 <Svetlana Chirinos MD - Last Filed: 05/31/21 16:47> Initial Vital Signs Initial Vital Signs: Vital Signs Temperature 97.5 F L 05/31/21 13:22 Pulse Rate 69 05/31/21 13:22 Respiratory Rate 16 05/31/21 13:22 Blood Pressure 123/83 05/31/21 13:22 Pulse Oximetry 99 05/31/21 13:22 Course <Anival Starr PA-C - Last Filed: 05/31/21 13:50> Orders Ordered: ED Orders 05/31/21 13:20 COVID19 -Nasal swab/Pre-Proc Stat Vital Signs Vital signs: Vital Signs - 8 hr 05/31/21 13:22 Temperature 97.5 F L Pulse Rate 69 Respiratory Rate 16 Blood Pressure 123/83 Pulse Oximetry 99 <Svetlana Chirinos MD - Last Filed: 05/31/21 16:47> Orders Ordered: ED Orders 05/31/21 13:20 COVID19 -Nasal swab/Pre-Proc Stat Vital Signs Vital signs: Vital Signs - 8 hr 05/31/21 13:22 Temperature 97.5 F L Pulse Rate 69 Respiratory Rate 16 Blood Pressure 123/83 Pulse Oximetry 99 MDM - Recheck/Abnormal Lab/Rx <Anival Starr PA-C - Last Filed: 05/31/21 13:50> Lab Data Labs: Lab Results 05/31/21 Range/Units 13:20 SARS-CoV-2 (PCR) Positive H (Negative) MDM Narrative Medical decision making narrative: Patient is asymptomatic at this time. She still has positive PCR which is not surprising. Recommend discharge home at this time with instructions to follow the CDC protocol for self isolation. Return precautions were discussed with the patient. <Svetlana Chirinos MD - Last Filed: 05/31/21 16:47> Lab Data Labs: Lab Results 05/31/21 Range/Units 13:20 SARS-CoV-2 (PCR) Positive H (Negative) Discharge Plan Departure Patient Disposition: Home Clinical Impression: COVID-19 Activity Restrictions/Additional Instructions: It was nice to meet you this afternoon. Your test is positive here today. Recommend following the CDC protocol for self isolation. This includes isolating yourself for 10 days from onset of symptoms, be afebrile for 24 hours without any antipyretics, have improvement in all of your symptoms. If you meet all of these criteria then you can go back out into your community. Thank you Anival Starr PA-C Prescriptions: No Action hydrochlorothiazide 25 mg tablet 25 mg PO DAILY Qty: 90 RF: 1 omeprazole 40 mg capsule,delayed release(DR/EC) 40 mg PO DAILY Qty: 30 RF: 3 One a Day PO RF: 0 ondansetron 8 mg tablet,disintegrating 8 mg PO Q8H PRN (Reason: nausea and vomiting) Qty: 90 RF: 0 cyclobenzaprine 10 mg tablet 10 mg PO BEDTIME PRN (Reason: pain and muscle spasms) Qty: 30 RF: 0 Referrals: Margaret Escudero ARNP [Primary Care Provider] - <Svetlana Chirinos MD - Last Filed: 05/31/21 16:47> Cosign ED Attending Cosignature Attestation: I was immediately available in the department for consultation throughout this patient's visit. I agree with documentation as above. Svetlana Chirinos MD
[2021-05-31 13:46] LABS: COVID19 -Nasal RAPID POSITIVE (Negative)
== END 2021-05-31 14:14 | disposition home or self-care (01) ==
PROVIDERS: Emergency Provider Physician Assistant; Family Provider Nurse Practitioner Family; PCP Registered Nurse
DX: U07.1 COVID-19 (principal)
CPT/HCPCS: 87635; 99281; 99282; C9803

== ENCOUNTER → 2021-08-26 14:44 | Outpatient (CLI) | payer OTHER, MEDICAID, SELFPAY ==
[2021-08-26 17:49] LABS: Appearance Urine UA CLEAR; Bilirubin Urine UA NEGATIVE (NEGATIVE); Color Urine UA YELLOW; Glucose Urine UA NEGATIVE (Negative); Ketones Urine UA TRACE (NEGATIVE); Leukocyte Esterase Urine UA TRACE (NEGATIVE); Nitrite Urine UA POSITIVE (Negative); Occult Blood Urine UA NEGATIVE (Negative); Protein Urine UA NEGATIVE (Negative); Specific Gravity Urine UA 1.025 (1.000-1.035); Urobilinogen Urine UA 0.2 E.U./dL (0.2)
[2021-08-26 17:58] LABS: RBC Urine 0-1/HPF (0-5/HPF); WBC Urine 10-30/HPF (0-5/HPF)
[2021-08-26 17:59] LABS: Bacteria Urine Many (>30); Culture Indicated Urine Specimen Cultured; Squamous Epithelial Cell Urine 0-1 /HPF (0-5/HPF)
== END ==
PROVIDERS: Family Provider Nurse Practitioner Family; PCP Registered Nurse; Referring Provider Registered Nurse; Visit Provider Registered Nurse
DX: N39.0 Urinary tract infection, site not specified (principal)
CPT/HCPCS: 81001; 81002; 87077; 87086; 87186

== ENCOUNTER 2021-09-21 19:08 | Inpatient (IN) | payer OTHER, MEDICAID, SELFPAY ==
[2021-09-21] VITALS (9 sets, daily range): BP systolic 107–146; BP diastolic 51–66; PULSE 100–115; RESP 18–34; TEMP 37.4–39.7; O2SAT 96–100; BMI 32.3; BMI 35.8
--- NOTE | 2021-09-21 19:46 | DI.RAD.S_ITS ---
PROCEDURE: XR CHEST 1V INDICATIONS: Chest pain TECHNIQUE: One view of the chest was acquired. COMPARISON: [facility], CR, XR CHEST 2V, 04/01/2021, 10:24. FINDINGS: Surgical changes and devices: None. Lungs and pleura: No consolidation, pleural effusions or pneumothorax. Mediastinum: Mediastinal contours appear normal. Heart size is normal. Bones and chest wall: No suspicious bony lesions. Overlying soft tissues appear unremarkable. IMPRESSION: No acute cardiopulmonary abnormality. Dictated by: Daniel Marquez M.D. on 09/21/2021 at 20:58 Approved by: Daniel Marquez M.D. on 09/21/2021 at 21:00
[2021-09-21 19:54] LABS: Add Manual Diff / Slide Review NO; Basophils Absolute Auto 0 /uL (0-100); Basophils Percent Auto 0.1 % (0-2); Eosinophils Absolute Auto 0 /uL (0-450); Eosinophils Percent Auto 0.1 % (2-4); Hematocrit 31.2 % (36-46); Hemoglobin 10.5 g/dL (12.0-16.0); Lymphocytes Absolute Auto 1100 /uL (1100-4500); Lymphocytes Percent Auto 10.7 % (25-40); Mean Corpuscular HGB Conc 33.7 % (30-36); Mean Corpuscular Hemoglobin 29.3 PG (26-34); Monocytes Absolute Auto 600 /uL (0-900); Neutrophils Absolute Auto 8400 /uL (1500-7000); Neutrophils Percent Auto 83.1 % (50-75); Platelet Count 87 X10^3/uL (150-400); Red Blood Cell Count 3.58 X10^6/uL (4.0-5.2); Red Cell Distribution Width 15.7 % (11.6-14.8); White Blood Cell Count 10.2 X10^3/uL (4.5-11.0)
[2021-09-21 20:06] LABS: Alanine Aminotransferase 41 IU/L (<35); Albumin 3.4 g/dL (3.5-5.0); Alkaline Phosphatase 127 U/L (38-126); Aspartate Aminotransferase 59 IU/L (14-36); Bilirubin Total 1.2 mg/dL (0.2-1.3); Blood Urea Nitrogen 11 mg/dL (7-17); Calcium 8.2 mg/dL (8.4-10.2); Carbon Dioxide 32 mmol/L (22-32); Chloride 93 mmol/L (98-107); Estimated Glomerular Filt Rate > 60.0 mL/min (>60); Globulin 3.4 g/dL (1.7-4.1); Glucose 177 mg/dL (70-100); HEMOLYSIS < 15 (0-50); Lipase 110 U/L (23-300); Sodium 130 mmol/L (137-145); Total Protein 6.8 g/dL (6.3-8.2)
[2021-09-21 20:07] LABS: Lactate (Lactic Acid) 2.5 mmol/L (0.7-2.1)
[2021-09-21] MEDS: SODIUM CHLORIDE 0.9% 1,000 ML 1000 ML IV ×2 (20:09→21:59)
[2021-09-21 20:13] LABS: Potassium 2.6 mmol/L (3.4-5.1)
[2021-09-21] MEDS: KETOROLAC 30 MG/ML VIAL 15 MG IV (20:22)
[2021-09-21 20:23] LABS: Procalcitonin 1.33 ng/mL (<0.5)
--- NOTE | 2021-09-21 20:29 | ED.SEPSIS ---
HPI - Sepsis General Chief Complaint: Abdominal Pain Mode of arrival: Ambulatory Source: patient Limitations: no limitations Evaluation Sepsis Screen: Possible Sepsis Risk Sepsis Infection Criteria Present: Suspected New Infection Narrative: Patient is a 51-year-old female history of hepatitis C and hypertension presenting today with left lower quadrant pain and fever. She says she has a history of colitis. Over last 3-4 days she has had increasing urinary urgency with increasing left lower quadrant pain. She denies any back pain nausea or vomiting. Says the fever started today. For an E coli UTI for 1 week that was diagnosed on 08/26/2021 is pansensitive, and was appropriately placed on Macrobid she said symptoms resolved however returned and today is febrile. She denies any left-sided flank pain no radiation of pain to her groin. She continues to have left lower quadrant pain as well she generally does not feel well. No chest pain or shortness of breath no palpitations. Review of Systems Review of Systems Narrative: GENERAL: Denies chills, fatigue, malaise, fever, sweats, travel HEENT: Denies sinus pain, ear pain, sore throat, difficulty swallowing, neck pain RESPIRATORY: Denies dyspnea, cough, wheezing, hemoptysis, sputum. CARDIOVASCULAR: Denies chest pain, palpitations, orthopnea, edema GASTROINTESTINAL: See HPI : See HPI MUSCULOSKELETAL: Denies weakness, joint pain, or bony pain SKIN: No rash, no erythema, no pruritus NEUROLOGIC: Denies weakness, dizziness, headache, numbness, change in speech, confusion PSYCHIATRIC: No concerning psychosocial issues. 12 point review of systems is negative except for those stated above and HPI Patient History Medical History Breast cancer screening Colon cancer screening Essential (primary) hypertension Generalized edema Heart murmur Hyperlipidemia Obesity (BMI 30.0-34.9) Palpitation Rhonchi Telangiectasia of skin UTI (urinary tract infection) Social History household members: family Smoking Status: Current every day smoker alcohol intake: never Smoking Status: Current every day smoker tobacco type: cigarettes alcohol intake frequency: holidays/special occasions only Substance Use Type: does not use Exam Initial Vital Signs Initial Vital Signs: Vital Signs Temperature 103.4 F H 09/21/21 19:22 Pulse Rate 115 H 09/21/21 19:22 Respiratory Rate 20 09/21/21 19:22 Blood Pressure 146/66 H 09/21/21 19:22 Pulse Oximetry 97 09/21/21 19:22 GENERAL: Alert 51-year-old female appears to not feel well in no acute distress. HEENT: Head atraumatic,EOMI, pupils reactive, face symmetric, moist mucous membranes CARDIOVASCULAR: Regular tachycardic no murmurs RESPIRATORY: Breath sounds equal bilaterally, no wheezes rales or rhonchi. ABDOMEN: Soft, tender left lower quadrant no guarding or rebound : No CVA tenderness EXTREMITIES: Normal range of motion, no clubbing or edema. Neurovascularly intact NEUROLOGICAL: Alert and oriented x4.Normal gait and speech. SKIN: Warm, dry, no laceration, no petechiae, no rashes or lesions. Course Orders Ordered: ED Orders 09/21/21 19:30 UA Complete [Urinalysis and Microscopic] Stat Urine Culture Stat 09/21/21 19:40 Complete Blood Count AUTO DIFF Stat Comprehensive Metabolic Panel Stat Lactate (Lactic Acid) Stat Lipase Stat Procalcitonin Stat 09/21/21 19:46 XR chest 1V Stat RT Consult Eval and Treat NOW 09/21/21 19:49 COVID19 - ADMIT (ENVIRONMENTAL COORDINATOR swab/PCR) Stat 09/21/21 20:00 EKG-12 Lead Stat 09/21/21 20:30 Blood Culture Stat 09/21/21 20:35 CT abdomen pelvis w con Stat Acetaminophen (Acetaminophen 325 Mg Tablet) 650 mg PO Q6HR PRN PRN Reason: Fever/Mild Pain (1-3) Enoxaparin Sodium (Enoxaparin 40 Mg/0.4 Ml Syringe) 40 mg SUBCUT DAILY SAI Sodium Chloride (Normal Saline 0.9%) 1,000 mls @ 100 mls/hr IV CONT SAI Last Admin: 09/21/21 22:33 Dose: 100 mls/hr Documented by: [email or web address] Piperacillin Sod/Tazobactam (Sod 3.375 gm/ Sodium Chloride) 100 mls @ 25 mls/hr IV Q8H SAI Morphine Sulfate (Morphine 2 Mg/Ml Inj) 2 mg IV Q4HR PRN PRN Reason: Pain, Moderate (4-6) Ondansetron HCl (Ondansetron 4 Mg/2 Ml Inj) 4 mg IV Q8HR PRN PRN Reason: Nausea And Vomiting Oxycodone HCl (Oxycodone Ir 5 Mg Tablet) 5 mg PO Q6HR PRN PRN Reason: Pain, Moderate (4-6) Pantoprazole Sodium (Pantoprazole 40 Mg Vial) 40 mg IV DAILY SAI Discontinued Medications Sodium Chloride (Normal Saline 0.9%) 1,000 mls @ 1,000 mls/hr IV BOLUS ONE Stop: 09/21/21 20:45 Last Infusion: 09/21/21 22:06 Dose: 0 mls/hr Documented by: Admin: 09/21/21 20:09 Dose: 1,000 mls/hr Documented by: DARCY POTASSIUM CHLORIDE IN WATER (Potassium Cl 10 Meq/100 Ml Marcie) 10 meq in 100 mls @ 100 mls/hr IV Q1H SAI Stop: 09/22/21 00:44 Last Infusion: 09/21/21 22:06 Dose: 0 mls/hr Documented by: Admin: 09/21/21 20:45 Dose: 100 mls/hr Documented by: DARCY Piperacillin Sod/Tazobactam (Sod 4.5 gm/ Sodium Chloride) 100 mls @ 200 mls/hr IV NOW ONE Stop: 09/21/21 21:20 Last Infusion: 09/21/21 22:37 Dose: 200 mls/hr Documented by: Admin: 09/21/21 21:59 Dose: 200 mls/hr Documented by: DARCY Sodium Chloride (Normal Saline 0.9%) 1,000 mls @ 1,000 mls/hr IV BOLUS ONE Stop: 09/21/21 22:38 Last Infusion: 09/21/21 22:37 Dose: 1,000 mls/hr Documented by: Admin: 09/21/21 21:59 Dose: 1,000 mls/hr Documented by: DARCY Piperacillin Sod/Tazobactam (Sod 4.5 gm/ Sodium Chloride) 100 mls @ 25 mls/hr IV Q8H [facility] Ketorolac Tromethamine (Ketorolac 30 Mg/Ml Vial) 15 mg IV NOW ONE Stop: 09/21/21 20:20 Last Admin: 09/21/21 20:22 Dose: 15 mg Documented by: DARCY Morphine Sulfate (Morphine 4 Mg/Ml Inj) 4 mg IV NOW ONE Stop: 09/21/21 20:36 Last Admin: 09/21/21 20:45 Dose: 4 mg Documented by: DARCY Potassium Chloride (Potassium Chloride 20 Meq Tab) 40 meq PO NOW ONE Stop: 09/22/21 00:56 Vital Signs Vital signs: Vital Signs - 8 hr 09/21/21 19:22 09/21/21 19:55 09/21/21 20:00 Temperature 103.4 F H 100.7 F H Pulse Rate 115 H 114 H 107 H Respiratory Rate 20 Blood Pressure 146/66 H 145/66 H Pulse Oximetry 97 100 99 09/21/21 20:30 09/21/21 21:05 09/21/21 21:30 Temperature 100.1 F H Pulse Rate 106 H 109 H 106 H Respiratory Rate 23 34 H 18 Blood Pressure 110/53 L Pulse Oximetry 99 96 96 Sepsis Guideline Criteria Level 1 - Infection Sepsis Infection Criteria Present: Suspected New Infection Treatment Initiated Antibiotics:: IV antimicrobials will be initiated as soon as possible after recognition of sepsis state and within one hour for both sepsis and septic shock. MDM - Sepsis Lab Data Result diagrams: 09/21/21 19:40 09/21/21 19:40 Labs: Lab Results 09/21/21 09/21/21 09/21/21 Range/Units 19:30 19:40 19:40 WBC 10.2 (4.5-11.0) X10^3/uL RBC 3.58 L (4.0-5.2) X10^6/uL Hgb 10.5 L (12.0-16.0) g/dL Hct 31.2 L (36-46) % MCV 87.0 (80-100) fL MCH 29.3 (26-34) PG MCHC 33.7 (30-36) % RDW 15.7 H (11.6-14.8) % Plt Count 87 L (150-400) X10^3/uL Neut % (Auto) 83.1 H (50-75) % Lymph % (Auto) 10.7 L (25-40) % [place] % (Auto) 6.0 (3-14) % Eos % (Auto) 0.1 L (2-4) % Baso % (Auto) 0.1 (0-2) % Neut # (Auto) 8400 H (4901-5989) /uL Lymph # (Auto) 1100 (1737-5242) /uL [place] # (Auto) 600 (0-900) /uL Eos # (Auto) 0 (0-450) /uL Baso # (Auto) 0 (0-100) /uL Sodium 130 L (137-145) mmol/L Potassium 2.6 L* (3.4-5.1) mmol/L Chloride 93 L (98-107) mmol/L Carbon Dioxide 32 (22-32) mmol/L BUN 11 (7-17) mg/dL Creatinine 0.61 (0.52-1.04) mg/dL Estimated GFR > 60.0 (>60) mL/min BUN/Creatinine Ratio 18.0 (6-22) Glucose 177 H (70-100) mg/dL Lactate (0.7-2.1) mmol/L Calcium 8.2 L (8.4-10.2) mg/dL Magnesium (1.6-2.3) mg/dL Total Bilirubin 1.2 (0.2-1.3) mg/dL AST 59 H (14-36) IU/L ALT 41 H (<35) IU/L Alkaline Phosphatase 127 H (38-126) U/L NT-Pro-B Natriuret Pep (<125) pg/mL Total Protein 6.8 (6.3-8.2) g/dL Albumin 3.4 L (3.5-5.0) g/dL Globulin 3.4 (1.7-4.1) g/dL Albumin/Globulin Ratio 1.0 (1.0-2.8) Lipase 110 (23-300) U/L Procalcitonin (<0.5) ng/mL Urine Color Yellow Urine Appearance Cloudy Urine pH 6.0 (4.5-8.0) Ur Specific [place] 1.015 (1.000-1.035) Urine Protein 1+ H (Negative) Urine Glucose (UA) Negative (Negative) g/dL Urine Ketones Negative (NEGATIVE) Urine Occult Blood Trace-intact (Negative) Urine Nitrate Positive H (Negative) Urine Bilirubin Negative (NEGATIVE) Urine Urobilinogen >=8.0 (0.2) E.U./dL Ur Leukocyte Esterase 1+ H (NEGATIVE) Urine RBC 0-1/hpf (0-5/HPF) Urine WBC 10-30/hpf H (0-5/HPF) Urine Bacteria Many (>30) H (None) Ur Culture Indicated? Specimen cultured SARS-CoV-2 (PCR) (Negative) 09/21/21 09/21/21 09/21/21 Range/Units 19:40 19:40 19:40 WBC (4.5-11.0) X10^3/uL RBC (4.0-5.2) X10^6/uL Hgb (12.0-16.0) g/dL Hct (36-46) % MCV (80-100) fL MCH (26-34) PG MCHC (30-36) % RDW (11.6-14.8) % Plt Count (150-400) X10^3/uL Neut % (Auto) (50-75) % Lymph % (Auto) (25-40) % [place] % (Auto) (3-14) % Eos % (Auto) (2-4) % Baso % (Auto) (0-2) % Neut # (Auto) (9615-2077) /uL Lymph # (Auto) (7999-5495) /uL [place] # (Auto) (0-900) /uL Eos # (Auto) (0-450) /uL Baso # (Auto) (0-100) /uL Sodium (137-145) mmol/L Potassium (3.4-5.1) mmol/L Chloride (98-107) mmol/L Carbon Dioxide (22-32) mmol/L BUN (7-17) mg/dL Creatinine (0.52-1.04) mg/dL Estimated GFR (>60) mL/min BUN/Creatinine Ratio (6-22) Glucose (70-100) mg/dL Lactate 2.5 H (0.7-2.1) mmol/L Calcium (8.4-10.2) mg/dL Magnesium (1.6-2.3) mg/dL Total Bilirubin (0.2-1.3) mg/dL AST (14-36) IU/L ALT (<35) IU/L Alkaline Phosphatase (38-126) U/L NT-Pro-B Natriuret Pep 290 H (<125) pg/mL Total Protein (6.3-8.2) g/dL Albumin (3.5-5.0) g/dL Globulin (1.7-4.1) g/dL Albumin/Globulin Ratio (1.0-2.8) Lipase (23-300) U/L Procalcitonin 1.33 H (<0.5) ng/mL Urine Color Urine Appearance Urine pH (4.5-8.0) Ur Specific [place] (1.000-1.035) Urine Protein (Negative) Urine Glucose (UA) (Negative) g/dL Urine Ketones (NEGATIVE) Urine Occult Blood (Negative) Urine Nitrate (Negative) Urine Bilirubin (NEGATIVE) Urine Urobilinogen (0.2) E.U./dL Ur Leukocyte Esterase (NEGATIVE) Urine RBC (0-5/HPF) Urine WBC (0-5/HPF) Urine Bacteria (None) Ur Culture Indicated? SARS-CoV-2 (PCR) (Negative) 09/21/21 09/21/21 Range/Units 19:40 19:49 WBC (4.5-11.0) X10^3/uL RBC (4.0-5.2) X10^6/uL Hgb (12.0-16.0) g/dL Hct (36-46) % MCV (80-100) fL MCH (26-34) PG MCHC (30-36) % RDW (11.6-14.8) % Plt Count (150-400) X10^3/uL Neut % (Auto) (50-75) % Lymph % (Auto) (25-40) % [place] % (Auto) (3-14) % Eos % (Auto) (2-4) % Baso % (Auto) (0-2) % Neut # (Auto) (0859-7916) /uL Lymph # (Auto) (9779-9339) /uL [place] # (Auto) (0-900) /uL Eos # (Auto) (0-450) /uL Baso # (Auto) (0-100) /uL Sodium (137-145) mmol/L Potassium (3.4-5.1) mmol/L Chloride (98-107) mmol/L Carbon Dioxide (22-32) mmol/L BUN (7-17) mg/dL Creatinine (0.52-1.04) mg/dL Estimated GFR (>60) mL/min BUN/Creatinine Ratio (6-22) Glucose (70-100) mg/dL Lactate (0.7-2.1) mmol/L Calcium (8.4-10.2) mg/dL Magnesium 1.8 (1.6-2.3) mg/dL Total Bilirubin (0.2-1.3) mg/dL AST (14-36) IU/L ALT (<35) IU/L Alkaline Phosphatase (38-126) U/L NT-Pro-B Natriuret Pep (<125) pg/mL Total Protein (6.3-8.2) g/dL Albumin (3.5-5.0) g/dL Globulin (1.7-4.1) g/dL Albumin/Globulin Ratio (1.0-2.8) Lipase (23-300) U/L Procalcitonin (<0.5) ng/mL Urine Color Urine Appearance Urine pH (4.5-8.0) Ur Specific [place] (1.000-1.035) Urine Protein (Negative) Urine Glucose (UA) (Negative) g/dL Urine Ketones (NEGATIVE) Urine Occult Blood (Negative) Urine Nitrate (Negative) Urine Bilirubin (NEGATIVE) Urine Urobilinogen (0.2) E.U./dL Ur Leukocyte Esterase (NEGATIVE) Urine RBC (0-5/HPF) Urine WBC (0-5/HPF) Urine Bacteria (None) Ur Culture Indicated? SARS-CoV-2 (PCR) Negative (Negative) Urine Dip Bedside Urine Glucose Negative Bedside Urine Bilirubin - Negative Bedside Urine Ketone - Negative Urine Specific [place] 1.015 Bedside Urine Occult Blood +/- Bedside Urine pH 6.0 Bedside Urine Protein + 30 Bedside Urine Urobilinogen 2+ 4mg Bedside Urine Nitrite + Positive Bedside Urine Leukocytes + [address] scan - abdomen/pelvis: Radiologist's Impression: PROCEDURE:? CT ABDOMEN PELVIS W CON ? INDICATIONS:? llq pain and fever ? TECHNIQUE:? After the administration of oral and IV contrast, axial sections were acquired from the lung bases to the pubic symphysis.? Coronal and sagittal reformats were performed.? For radiation dose reduction, the following was used:? automated exposure control, adjustment of mA and/or kV according to patient size. ? COMPARISON:? [facility], CT, CT ABDOMEN PELVIS W CON, 01/14/2021, 15:54. ? FINDINGS:? Image quality:? Excellent.? ? Lung bases:? Unremarkable.? ? Heart:? No significant findings. ? ? ABDOMEN: Liver:? Nodular contour of the liver, compatible with cirrhosis.? ? Gallbladder:? Unremarkable.? ? Biliary ducts:? Unremarkable.? ? Pancreas:? Unremarkable.? ? Spleen:? Normal contour.? Mildly enlarged, measuring up to 13.7 cm.? ? Scattered, predominately peripheral hypoattenuating areas are seen, measuring up to 3.2 cm. Adrenal Glands:? Unremarkable.? ? Kidneys and Ureters:? Unremarkable.? ? ? Stomach and Bowel:? No evidence of intestinal obstruction.? Diffuse wall thickening of the ascending colon, most consistent with colitis.? Normal appearance of the appendix. Peritoneum:? Small amount of intraperitoneal fluid.? No free air.? ? Ventral Wall: ? Trace fat containing periumbilical hernia.? Abdominal Nodes:? No retroperitoneal or mesenteric adenopathy by size criteria.? Vessels:? Aorta and inferior vena cava are normal in size.? ? PELVIS: Pelvic Organs:? The uterus is surgically absent.? ? Bladder:? Unremarkable.? ? Pelvic Nodes:? Mildly prominent inguinal lymph nodes, which may be reactive.? Miscellaneous: No inguinal hernias are seen. ? ? ? Bones:? Multifocal degenerative change. ? ? IMPRESSION:? ? 1. Cirrhotic changes of the liver with small volume ascites.? 2. Hypoattenuating areas throughout the spleen, which are nonspecific but reflect infarctions.? 3. Wall thickening of the ascending colon, most consistent with colitis.? ? Dictated by: Daniel Marquez M.D. on 09/21/2021 at 21:07 ?? Chest x-ray: Radiologist's Impression: PROCEDURE:? XR CHEST 1V ? INDICATIONS:? Chest pain ? TECHNIQUE:? One view of the chest was acquired.? ? COMPARISON:? [facility], , XR CHEST 2V, 04/01/2021, 10:24. ? FINDINGS:? ? Surgical changes and devices:? None.? ? Lungs and pleura:? No consolidation, pleural effusions or pneumothorax.? ? Mediastinum:? Mediastinal contours appear normal.? Heart size is normal.? ? Bones and chest wall:? No suspicious bony lesions.? Overlying soft tissues appear unremarkable.? ? IMPRESSION:? No acute cardiopulmonary abnormality. ? ? Dictated by: Daniel Marquez M.D. on 09/21/2021 at 20:58 ? ? ECG Data Interpretation: Sinus rhythm rate 101 MN interval 136 QRS [address] changes no T-wave inversions no U wave MDM Narrative Medical decision making narrative: The patient is found to be septic with colitis identified on CT and UTI with positive nitrates. She however has no signs of severe sepsis blood pressure remains stable. She is given IV fluids along with antibiotics. She is also found to be hypokalemic with potassium of 2.6 probably from hydrochlorothiazide. She states she is allergic to ibuprofen it causes some upset stomach with this seems to tolerate Toradol okay. Sign of anaphylaxis. in ED to see and evaluate patient. Accepts for admission Discharge Plan Departure Patient Disposition: Admitted As Inpatient Clinical Impression: Sepsis, UTI (urinary tract infection), Colitis, Acute hypokalemia Admit Date/Time: 09/21/21 21:31 Admit Provider: Den Dick
--- NOTE | 2021-09-21 20:35 | DI.CT.S_ITS ---
PROCEDURE: CT ABDOMEN PELVIS W CON INDICATIONS: llq pain and fever TECHNIQUE: After the administration of oral and IV contrast, axial sections were acquired from the lung bases to the pubic symphysis. Coronal and sagittal reformats were performed. For radiation dose reduction, the following was used: automated exposure control, adjustment of mA and/or kV according to patient size. COMPARISON: [facility], CT, CT ABDOMEN PELVIS W CON, 01/14/2021, 15:54. FINDINGS: Image quality: Excellent. Lung bases: Unremarkable. Heart: No significant findings. ABDOMEN: Liver: Nodular contour of the liver, compatible with cirrhosis. Gallbladder: Unremarkable. Biliary ducts: Unremarkable. Pancreas: Unremarkable. Spleen: Normal contour. Mildly enlarged, measuring up to 13.7 cm. Scattered, predominately peripheral hypoattenuating areas are seen, measuring up to 3.2 cm. Adrenal Glands: Unremarkable. Kidneys and Ureters: Unremarkable. Stomach and Bowel: No evidence of intestinal obstruction. Diffuse wall thickening of the ascending colon, most consistent with colitis. Normal appearance of the appendix. Peritoneum: Small amount of intraperitoneal fluid. No free air. Ventral Wall: Trace fat containing periumbilical hernia. Abdominal Nodes: No retroperitoneal or mesenteric adenopathy by size criteria. Vessels: Aorta and inferior vena cava are normal in size. PELVIS: Pelvic Organs: The uterus is surgically absent. Bladder: Unremarkable. Pelvic Nodes: Mildly prominent inguinal lymph nodes, which may be reactive. Miscellaneous: No inguinal hernias are seen. Bones: Multifocal degenerative change. IMPRESSION: 1. Cirrhotic changes of the liver with small volume ascites. 2. Hypoattenuating areas throughout the spleen, which are nonspecific but reflect infarctions. 3. Wall thickening of the ascending colon, most consistent with colitis. Dictated by: Daniel Marquez M.D. on 09/21/2021 at 21:07 Approved by: Daniel Marquez M.D. on 09/21/2021 at 21:15
[2021-09-21] MEDS: POTASSIUM CHLORIDE IN WATER 10 MEQ/100 ML PIGGYBACK 100 MEQ IV (20:45)
[2021-09-21] MEDS: MORPHINE 4 MG/ML INJ IV (20:45)
[2021-09-21 20:47] LABS: COVID19 - ADMIT (NP swab/PCR) Negative (Negative)
[2021-09-21 20:48] LABS: Appearance Urine UA CLOUDY; Bilirubin Urine UA NEGATIVE (NEGATIVE); Color Urine UA YELLOW; Glucose Urine UA NEGATIVE (Negative); Ketones Urine UA NEGATIVE (NEGATIVE); Leukocyte Esterase Urine UA 1+ (NEGATIVE); Nitrite Urine UA POSITIVE (Negative); Occult Blood Urine UA TRACE-INTACT (Negative); Protein Urine UA 1+ (Negative); Specific Gravity Urine UA 1.015 (1.000-1.035); Urobilinogen Urine UA >=8.0 E.U./dL (0.2)
[2021-09-21 21:14] LABS: RBC Urine 0-1/HPF (0-5/HPF)
[2021-09-21 21:15] LABS: Bacteria Urine Many (>30); Culture Indicated Urine Specimen Cultured; WBC Urine 10-30/HPF (0-5/HPF)
--- NOTE | 2021-09-21 21:32 | PM.HP.1 ---
History of Present Illness History of Present Illness Date Patient Seen: 09/21/21 Time Patient Seen: 21:00 Chief complaint: Victorino Florence on Lt side lots of pain Narrative: Ms. Felix is a 51W with PMH of hepatitis C cirrhosis s/p treatment, HTN who presents with abdominal pain. She states she developed an E.coli UTI last month and was treated with antibiotics. Per the chart her E.coli UTI was pansensitive. Her symptoms resolved. She then developed worsening left lower quadrant abdominal pain 3-4 days ago. She had urinary frequency and burning. She had subjective fevers. No nausea/vomiting. No diarrhea. No shortness of breath. In the ED workup was done, she was noted to have a temp of 103.4, hr 114, blood pressure 140s/60s. Labs notable for WBC 10.2, plts 87, na 130, k 2.6, creatinine 0.61. UA was cloudy with intrates, leuk esterase, WBC, and bacteria. CT abdomen showed cirrhotic changes of the liver and wall thickening of the ascending colon. She was given fluids and antibiotics and admitted for further treatment. Family history: no known history of CHF Patient History Medical History Breast cancer screening Colon cancer screening Essential (primary) hypertension Generalized edema Heart murmur Hyperlipidemia Obesity (BMI 30.0-34.9) Palpitation Rhonchi Telangiectasia of skin UTI (urinary tract infection) Family & Social History Social History: household members family Prior Living Arrangements House Safety & Behavioral: Feels Safe in Current Yes Environment Been Physically Hurt or No Threatened By a Person Suicidal Ideation Description None Suicide Plan Description No Plan Tobacco & Substance use: Tobacco type cigarettes Smoking Status Current every day smoker alcohol intake never alcohol intake frequency holiday/special occasion Substance Use Type does not use Meds Home Medications and Allergies Home Medications Medication Instructions Recorded Confirmed Type hydrochlorothiazide 25 mg tablet 25 mg PO DAILY #90 tab 08/26/21 09/21/21 Rx omeprazole 20 mg capsule,delayed 20 mg PO DAILY #30 cap 08/26/21 09/21/21 Rx release Allergies Allergy/AdvReac Type Severity Reaction Status Date / Time codeine [CODEINE] Allergy Mild Verified 08/26/21 14:54 ibuprofen [IBUPROFEN] AdvReac Mild HEADACHES Verified 08/26/21 14:54 Review of Systems Review of Systems Narrative: 14 systems reviewed and negative aside from what is noted in HPI Exam Vital Signs (past 8 hours): - 09/21/21 19:22 09/21/21 19:55 09/21/21 20:00 Temperature 103.4 F H 100.7 F H Pulse Rate 115 H 114 H 107 H Respiratory Rate 20 Blood Pressure 146/66 H 145/66 H Pulse Oximetry 97 100 99 09/21/21 20:30 09/21/21 21:05 09/21/21 21:30 Temperature 100.1 F H Pulse Rate 106 H 109 H 106 H Respiratory Rate 23 34 H 18 Blood Pressure 110/53 L Pulse Oximetry 99 96 96 09/21/21 21:32 09/21/21 22:00 09/21/21 22:37 Temperature 99.4 F Pulse Rate 106 H 107 H 100 H Respiratory Rate 19 18 18 Blood Pressure 110/51 L 107/52 L 126/58 L Pulse Oximetry 97 98 99 Oxygen Delivery Method Room Air Narrative Exam Narrative: GEN: no acute distress HEENT: moist mucous membranes, PERRL NECK: trachea midline, no JVD CV: regular rate and rhythm, 2/6 systolic murmur PULM: clear bilaterally, no wheezes, rhonchi, rales ABD: soft, tenderness in the left lower quadrant and suprapubic area, no rebound/guarding, no organomegaly, normal bowel sounds EXT: 1+ edema NEURO: awake, alert, oriented, moving all extremities with no focal deficits Objective Labs Result Diagrams: 09/22/21 05:50 09/21/21 19:40 Labs: Laboratory Results - last 24 hr 09/21/21 09/21/21 09/21/21 19:30 19:40 19:40 WBC 10.2 RBC 3.58 L Hgb 10.5 L Hct 31.2 L MCV 87.0 MCH 29.3 MCHC 33.7 RDW 15.7 H Plt Count 87 L Neut % (Auto) 83.1 H Lymph % (Auto) 10.7 L [place] % (Auto) 6.0 Eos % (Auto) 0.1 L Baso % (Auto) 0.1 Neut # (Auto) 8400 H Lymph # (Auto) 1100 [place] # (Auto) 600 Eos # (Auto) 0 Baso # (Auto) 0 Sodium 130 L Potassium 2.6 L* Chloride 93 L Carbon Dioxide 32 BUN 11 Creatinine 0.61 Estimated GFR > 60.0 BUN/Creatinine Ratio 18.0 Glucose 177 H Lactate Calcium 8.2 L Magnesium Total Bilirubin 1.2 AST 59 H ALT 41 H Alkaline Phosphatase 127 H NT-Pro-B Natriuret Pep Total Protein 6.8 Albumin 3.4 L Globulin 3.4 Albumin/Globulin Ratio 1.0 Lipase 110 Procalcitonin Urine Color Yellow Urine Appearance Cloudy Urine pH 6.0 Ur Specific [place] 1.015 Urine Protein 1+ H Urine Glucose (UA) Negative Urine Ketones Negative Urine Occult Blood Trace-intact Urine Nitrate Positive H Urine Bilirubin Negative Urine Urobilinogen >=8.0 Ur Leukocyte Esterase 1+ H Urine RBC 0-1/hpf Urine WBC 10-30/hpf H Urine Bacteria Many (>30) H Ur Culture Indicated? Specimen cultured SARS-CoV-2 (PCR) 09/21/21 09/21/21 09/21/21 19:40 19:40 19:40 WBC RBC Hgb Hct MCV MCH MCHC RDW Plt Count Neut % (Auto) Lymph % (Auto) [place] % (Auto) Eos % (Auto) Baso % (Auto) Neut # (Auto) Lymph # (Auto) [place] # (Auto) Eos # (Auto) Baso # (Auto) Sodium Potassium Chloride Carbon Dioxide BUN Creatinine Estimated GFR BUN/Creatinine Ratio Glucose Lactate 2.5 H Calcium Magnesium Total Bilirubin AST ALT Alkaline Phosphatase NT-Pro-B Natriuret Pep 290 H Total Protein Albumin Globulin Albumin/Globulin Ratio Lipase Procalcitonin 1.33 H Urine Color Urine Appearance Urine pH Ur Specific [place] Urine Protein Urine Glucose (UA) Urine Ketones Urine Occult Blood Urine Nitrate Urine Bilirubin Urine Urobilinogen Ur Leukocyte Esterase Urine RBC Urine WBC Urine Bacteria Ur Culture Indicated? SARS-CoV-2 (PCR) 09/21/21 09/21/21 09/21/21 19:40 19:49 21:35 WBC RBC Hgb Hct MCV MCH MCHC RDW Plt Count Neut % (Auto) Lymph % (Auto) [place] % (Auto) Eos % (Auto) Baso % (Auto) Neut # (Auto) Lymph # (Auto) [place] # (Auto) Eos # (Auto) Baso # (Auto) Sodium Potassium Chloride Carbon Dioxide BUN Creatinine Estimated GFR BUN/Creatinine Ratio Glucose Lactate 1.3 Calcium Magnesium 1.8 Total Bilirubin AST ALT Alkaline Phosphatase NT-Pro-B Natriuret Pep Total Protein Albumin Globulin Albumin/Globulin Ratio Lipase Procalcitonin Urine Color Urine Appearance Urine pH Ur Specific [place] Urine Protein Urine Glucose (UA) Urine Ketones Urine Occult Blood Urine Nitrate Urine Bilirubin Urine Urobilinogen Ur Leukocyte Esterase Urine RBC Urine WBC Urine Bacteria Ur Culture Indicated? SARS-CoV-2 (PCR) Negative Assessment & Plan Assessment & Plan narrative: Ms. Felix is a 51W with PMH recent UTI who presents with abdominal pain, dysuria found to have sepsis secondary to UTI and colitis. 1. Sepsis -etiology secondary to UTI and probable infectious colitis -did get 30cc/kg of IV fluid in ED, and antibiotics -good response to fluids with improved heart rate and lactate 2.5->1.3 -given repeated UTIs may benefit from urology follow up was outpatient -recently diagnosed with pansensitive E.coli -for now will continue on zosyn -follow up urine and blood cultures -ordered stool culture 2. Hypokalemia -likely secondary to poor oral intake and HCTZ -ordered for potassium supplementation -hold HCTZ 3. Shortness of breath with heart murmur -BNP only mildly elevated, 290 -cxray with no acute process -ECHO ordered 4. Anemia, thrombocytopenia -secondary to cirrhosis is likely etiology -no indication for transfusion currently 5. Obesity -noted BMI 35.8 -follow up with PCP 6. HTN -hold HCTZ 7. Hep C cirrhosis -per patient s/p hepatitis C treatment with eradication of virus 8. GERD -continue PPI CODE: Full Proxy: Kat Haider, mother I have utilized all available resources to reconcile patient's home medications Time Spent With Patient Critical Care time: I spent a total of [] minutes of critical care time on this patient's care today; this time is exclusive of procedural time. Quality VTE Deep Vein Thrombosis/Pulmonary Embolism Present on Admission: No MIPS - Admit I confirm the patient?s Advance Care Plan is present, Code status is documented, Surrogate decision maker is in patient?s record [If Yes, STOP here]: Yes
[2021-09-21 21:49] LABS: Reflexed Lactate in 2 Hours Y
[2021-09-21] MEDS: PIPERACILLIN/TAZO 4.5 GM in SODIUM CHLORIDE 0.9% 100 ML 200 ML IV (21:59)
[2021-09-21 22:00] LABS: Lactate 2HR (Lactic Acid Rflx) 1.3 mmol/L (0.7-2.1)
[2021-09-21 22:29] LABS: Magnesium 1.8 mg/dL (1.6-2.3)
[2021-09-21] MEDS: SODIUM CHLORIDE 0.9% 1,000 ML 100 ML IV (22:33)
[2021-09-21 22:38] LABS: NT-proBNP (BNP-Adult 18+) 290 pg/mL (<125)
[2021-09-22] VITALS (12 sets, daily range): BP systolic 117–127; BP diastolic 51–63; PULSE 94–106; RESP 16–18; TEMP 37.2–38.4; O2SAT 94–99
[2021-09-22] MEDS: POTASSIUM CHLORIDE 20 MEQ TAB 40 MEQ PO (01:43)
[2021-09-22] MEDS: PIPERACILLIN/TAZO 3.375 GM in SODIUM CHLORIDE 0.9% 100 ML 25 ML IV ×3 (01:43→18:26)
[2021-09-22 06:16] LABS: Add Manual Diff / Slide Review NO; Basophils Absolute Auto 0 /uL (0-100); Basophils Percent Auto 0.2 % (0-2); Eosinophils Absolute Auto 0 /uL (0-450); Eosinophils Percent Auto 0.2 % (2-4); Hemoglobin 9.3 g/dL (12.0-16.0); Lymphocytes Absolute Auto 1800 /uL (1100-4500); Mean Corpuscular HGB Conc 33.1 % (30-36); Mean Corpuscular Hemoglobin 28.7 PG (26-34); Mean Corpuscular Volume 86.9 fL (80-100); Monocytes Absolute Auto 1200 /uL (0-900); Monocytes Percent Auto 10.5 % (3-14); Neutrophils Absolute Auto 8100 /uL (1500-7000); Neutrophils Percent Auto 73.1 % (50-75); Platelet Count 73 X10^3/uL (150-400); Red Blood Cell Count 3.22 X10^6/uL (4.0-5.2); Red Cell Distribution Width 15.1 % (11.6-14.8)
[2021-09-22 06:30] LABS: Blood Urea Nitrogen 9 mg/dL (7-17); Calcium 7.3 mg/dL (8.4-10.2); Carbon Dioxide 27 mmol/L (22-32); Chloride 99 mmol/L (98-107); Estimated Glomerular Filt Rate > 60.0 mL/min (>60); Glucose 110 mg/dL (70-100); HEMOLYSIS < 15 (0-50); Magnesium 1.7 mg/dL (1.6-2.3); Phosphorous 2.5 mg/dL (2.5-4.5); Potassium 3.1 mmol/L (3.4-5.1); Sodium 129 mmol/L (137-145)
[2021-09-22 06:33] LABS: Alanine Aminotransferase 35 IU/L (<35); Albumin 2.5 g/dL (3.5-5.0); Albumin Globulin Ratio 0.8 (1.0-2.8); Alkaline Phosphatase 97 U/L (38-126); Aspartate Aminotransferase 49 IU/L (14-36); Bilirubin Total 1.3 mg/dL (0.2-1.3); Bilirubin Unconjugated 0.8 mg/dL (0.0-1.1); HEMOLYSIS < 15 (0-50); Total Protein 5.5 g/dL (6.3-8.2)
--- NOTE | 2021-09-22 09:11 | DI.ECHO.S_ITS ---
:Reason For Study: SOB, systolic murmur : :Ordering Physician: : :LOIS Performed By: Suleman Maciel : :Referring: KRISTYN NAIDU : + + Interpretation Summary The left ventricle is normal in size and wall thickness. The ejection fraction is estimated to be 60-65%. The right ventricle is mildly dilated. The right ventricular systolic function is normal. The right ventricular systolic pressure is estimated to be at least 40 mmHg based on an estimated right atrial pressure of 3 mm Hg. Severely dilated LA Mild mitral regurgitation Mild Aotic regurgitation with mild stenosis Mild tricuspid regurgitation Procedure: A two-dimensional transthoracic echocardiogram with color flow and Doppler was performed. The study quality was technically adequate. There is no prior echocardiogram noted for this patient. The patient was in normal sinus rhythm during the exam. Left Ventricle: The left ventricle is normal in size and wall thickness. The ejection fraction is estimated to be 60-65%. Left ventricular wall motion is normal. Diastolic parameters suggest a relaxation abnormality of the left ventricle, consistent with probable normal filling pressures. Right Ventricle: The right ventricle is mildly dilated. The right ventricular systolic function is normal. Atria: The left atrium is severely dilated. The right atrium is mildly dilated. There is no Doppler evidence for an interatrial shunt. Mitral Valve: The mitral valve is normal. There is mild mitral regurgitation. Aortic Valve: The aortic valve is trileaflet. The aortic valve opens well. There is mild aortic stenosis. There is mild aortic regurgitation. Tricuspid Valve: The tricuspid valve is normal. There is mild to moderate tricuspid regurgitation. The right ventricular systolic pressure is estimated to be at least 40 mmHg based on an estimated right atrial pressure of 3 mm Hg. Pulmonic Valve: The pulmonic valve is not well visualized. There is trace pulmonic regurgitation. Great Vessels: The aortic root is normal size. The ascending aorta is normal in size. The aortic arch is normal in size. The IVC is of normal diameter and collapses greater than 50% with a sniff. This suggests a low right atrial pressure of 3 mm Hg. Pericardium/ Pleura There is no pericardial effusion. There is an anterior echo-free space consistent with a fat pad. There is no pleural effusion. MMode/2D Measurements & Calculations LVIDd: 4.9 cm LVOT diam: 1.6 cm LVIDs: 2.7 cm Ao root diam: 2.0 cm FS: 44.9 % asc Aorta Diam: 2.8 cm IVSd: 0.70 cm Ao Arch Diam (Prox Trans): 2.4 cm LVPWd: 0.90 cm LV garg. diameter/BSA (cm/m^2): 2.5 LV sys. diameter/BSA (cm/m^2): 1.4 LA A2 area: 27.3 cm2 RA long axis: 5.3 cm LA A4 area: 28.8 cm2 RA area: 16.3 cm2 LA length (vol): 6.5 cm RA vol: 42.5 ml LA vol: 102.2 ml RA : 21.3 ml/m2 LA vol index: 51.2 ml/m2 RVD1 (basal): 4.7 cm LVLs ap4: 6.0 cm TAPSE: 2.9 cm LVLd ap2: 7.7 cm LVLs ap2: 5.6 cm Doppler Measurements & Calculations Ao V2 max: 253.9 cm/sec LVOT Max Juan R: 223.1 cm/sec Ao V2 mean: 181.7 cm/sec LV V1 max P.9 mmHg Ao max P.8 mmHg LV V1 VTI: 42.3 cm Ao mean P.3 mmHg ASHLEE(I,D): 1.8 cm2 Ao V2 VTI: 46.5 cm ASHLEE(V,D): 1.8 cm2 sev ratio: 0.91 ASHLEE indexed to BSA (cm^2/m^2): 0.92 MV E max juan r: 177.0 cm/sec TR max juan r: 305.4 cm/sec MV A max juan r: 163.0 cm/sec TR max P.3 mmHg MV E/A: 1.1 PA V2 max: 146.0 cm/sec Med Peak E' Juan R: 5.1 cm/sec PA V2 mean: 121.0 cm/sec E/E' med: 34.5 PA mean P.0 mmHg Lat Peak E' Juan R: 4.5 cm/sec PA pr(Accel): 34.0 mmHg E/E' lat: 39.8 E/e' average: 37.1 MV dec time: 0.29 sec MR VTI: 123.0 cm SV(LVOT): 85.1 ml MV P1/2t-pr_phl: 86.0 msec Reading Physician:OLLIE
[2021-09-22] MEDS: ENOXAPARIN 40 MG/0.4 ML SYRINGE SUBCUT (09:14)
[2021-09-22] MEDS: PANTOPRAZOLE 40 MG VIAL IV (09:14)
[2021-09-22] MEDS: MORPHINE 2 MG/ML INJ IV ×2 (09:17→23:46)
[2021-09-22] MEDS: SODIUM CHLORIDE 0.9% 1,000 ML 100 ML IV (11:00)
--- NOTE | 2021-09-22 13:28 | PM.PN.1 ---
Subjective Subjective Date Patient Seen: 09/22/21 Interval history: THIS IS A 51-YEAR-OLD FEMALE WITH A HISTORY OF HEP C AND CIRRHOSIS OF THE LIVER. SHE IS BEING TREATED FOR URINARY TRACT INFECTION WELL POSSIBLE COLITIS. TODAY SHE REPORTED BEING HUNGRY SHE DENIES ANY NAUSEA NO CHEST PAIN OR SHORTNESS OF BREATH SHE IS FEELING BETTER SINCE ADMISSION SHE DENIES ANY FEVER OR CHILLS OVERNIGHT NO DIARRHEA. NO SIGNIFICANT ISSUES OVERNIGHT Exam Vital Signs (past 8 hours): - 09/22/21 06:00 09/22/21 08:36 09/22/21 09:02 Temperature 99.6 F 99.8 F H Pulse Rate 96 H 102 H 94 H Respiratory Rate 17 18 18 Blood Pressure 119/59 L 122/55 L Pulse Oximetry 95 95 94 09/22/21 13:12 Temperature 98.9 F Pulse Rate 97 H Respiratory Rate 16 Blood Pressure 118/63 Pulse Oximetry 98 Oxygen Delivery Method Room Air Oxygen Flow Rate 0 Narrative Exam Narrative: NO ACUTE DISTRESS. PATIENT IS ALERT ORIENTED X3. VITAL SIGNS STABLE HEAD ATRAUMATIC NORMOCEPHALIC NECK : SUPPLE WITHOUT ADENOPATHY NO CAROTID BRUITS EYE: EOMI, PERRLA, NORMAL CONJUNCTIVA; NO JAUNDICE CHEST: REGULAR RATE. NO RUBS. PMI IS NON DISPLACED. NO MURMURS; NORMAL S1-S2 PULMONARY: DECREASED BS OVER THE BASES. MILD BIBASILAR CRACKLES NOTED; NO INCREASED DULLNESS TO PERCUSSION ABDOMEN: OBESE BUT SOFT. NONTENDER. NONDISTENDED. BOWEL SOUNDS ARE PRESENT IN ALL 4 QUADRANTS. EXTREMITIES: 1+ NONPITTING BILATERAL LOWER EXTREMITY EDEMA.. NO CYANOSIS CLUBBING NOTED. NEURO: CRANIAL NERVES 2-12 GROSSLY INTACT. NO FOCAL NEUROLOGICAL DEFICIT NOTED. MSK: NORMAL RANGE OF MOTION FOR AGE. NO JOINT EFFUSION. SKIN: NORMAL FOR ETHNICITY; NO ECCHYMOSIS. NO LESION. GOOD TURGOR.; NO RASHES : NORMAL EXTERNAL GENITALIA. PSYCH : APPROPRIATE MOOD AND AFFECT. ALERT AWAKE ORIENTED X3 Objective Labs Result Diagrams: 09/22/21 05:50 09/22/21 05:50 Labs: Laboratory Results - last 24 hr 09/21/21 09/21/21 09/21/21 19:30 19:40 19:40 WBC 10.2 RBC 3.58 L Hgb 10.5 L Hct 31.2 L MCV 87.0 MCH 29.3 MCHC 33.7 RDW 15.7 H Plt Count 87 L Neut % (Auto) 83.1 H Lymph % (Auto) 10.7 L [place] % (Auto) 6.0 Eos % (Auto) 0.1 L Baso % (Auto) 0.1 Neut # (Auto) 8400 H Lymph # (Auto) 1100 [place] # (Auto) 600 Eos # (Auto) 0 Baso # (Auto) 0 Sodium 130 L Potassium 2.6 L* Chloride 93 L Carbon Dioxide 32 BUN 11 Creatinine 0.61 Estimated GFR > 60.0 BUN/Creatinine Ratio 18.0 Glucose 177 H Lactate Calcium 8.2 L Phosphorus Magnesium Total Bilirubin 1.2 Conjugated Bilirubin Unconjugated Bilirubin AST 59 H ALT 41 H Alkaline Phosphatase 127 H NT-Pro-B Natriuret Pep Total Protein 6.8 Albumin 3.4 L Globulin 3.4 Albumin/Globulin Ratio 1.0 Lipase 110 Procalcitonin Urine Color Yellow Urine Appearance Cloudy Urine pH 6.0 Ur Specific [place] 1.015 Urine Protein 1+ H Urine Glucose (UA) Negative Urine Ketones Negative Urine Occult Blood Trace-intact Urine Nitrate Positive H Urine Bilirubin Negative Urine Urobilinogen >=8.0 Ur Leukocyte Esterase 1+ H Urine RBC 0-1/hpf Urine WBC 10-30/hpf H Urine Bacteria Many (>30) H Ur Culture Indicated? Specimen cultured SARS-CoV-2 (PCR) 09/21/21 09/21/21 09/21/21 19:40 19:40 19:40 WBC RBC Hgb Hct MCV MCH MCHC RDW Plt Count Neut % (Auto) Lymph % (Auto) [place] % (Auto) Eos % (Auto) Baso % (Auto) Neut # (Auto) Lymph # (Auto) [place] # (Auto) Eos # (Auto) Baso # (Auto) Sodium Potassium Chloride Carbon Dioxide BUN Creatinine Estimated GFR BUN/Creatinine Ratio Glucose Lactate 2.5 H Calcium Phosphorus Magnesium Total Bilirubin Conjugated Bilirubin Unconjugated Bilirubin AST ALT Alkaline Phosphatase NT-Pro-B Natriuret Pep 290 H Total Protein Albumin Globulin Albumin/Globulin Ratio Lipase Procalcitonin 1.33 H Urine Color Urine Appearance Urine pH Ur Specific [place] Urine Protein Urine Glucose (UA) Urine Ketones Urine Occult Blood Urine Nitrate Urine Bilirubin Urine Urobilinogen Ur Leukocyte Esterase Urine RBC Urine WBC Urine Bacteria Ur Culture Indicated? SARS-CoV-2 (PCR) 09/21/21 09/21/2121 19:40 19:49 21:35 WBC RBC Hgb Hct MCV MCH MCHC RDW Plt Count Neut % (Auto) Lymph % (Auto) [place] % (Auto) Eos % (Auto) Baso % (Auto) Neut # (Auto) Lymph # (Auto) [place] # (Auto) Eos # (Auto) Baso # (Auto) Sodium Potassium Chloride Carbon Dioxide BUN Creatinine Estimated GFR BUN/Creatinine Ratio Glucose Lactate 1.3 Calcium Phosphorus Magnesium 1.8 Total Bilirubin Conjugated Bilirubin Unconjugated Bilirubin AST ALT Alkaline Phosphatase NT-Pro-B Natriuret Pep Total Protein Albumin Globulin Albumin/Globulin Ratio Lipase Procalcitonin Urine Color Urine Appearance Urine pH Ur Specific [place] Urine Protein Urine Glucose (UA) Urine Ketones Urine Occult Blood Urine Nitrate Urine Bilirubin Urine Urobilinogen Ur Leukocyte Esterase Urine RBC Urine WBC Urine Bacteria Ur Culture Indicated? SARS-CoV-2 (PCR) Negative 09/22/21 09/22/21 09/22/21 05:50 05:50 05:50 WBC 11.0 RBC 3.22 L Hgb 9.3 L Hct 28.0 L MCV 86.9 MCH 28.7 MCHC 33.1 RDW 15.1 H Plt Count 73 L Neut % (Auto) 73.1 Lymph % (Auto) 16.0 L [place] % (Auto) 10.5 Eos % (Auto) 0.2 L Baso % (Auto) 0.2 Neut # (Auto) 8100 H Lymph # (Auto) 1800 [place] # (Auto) 1200 H Eos # (Auto) 0 Baso # (Auto) 0 Sodium 129 L Potassium 3.1 L Chloride 99 Carbon Dioxide 27 BUN 9 Creatinine 0.53 Estimated GFR > 60.0 BUN/Creatinine Ratio 17.0 Glucose 110 H Lactate Calcium 7.3 L Phosphorus 2.5 Magnesium 1.7 Total Bilirubin 1.3 Conjugated Bilirubin 0.0 Unconjugated Bilirubin 0.8 AST 49 H ALT 35 H Alkaline Phosphatase 97 NT-Pro-B Natriuret Pep Total Protein 5.5 L Albumin 2.5 L Globulin 3.0 Albumin/Globulin Ratio 0.8 L Lipase Procalcitonin Urine Color Urine Appearance Urine pH Ur Specific [place] Urine Protein Urine Glucose (UA) Urine Ketones Urine Occult Blood Urine Nitrate Urine Bilirubin Urine Urobilinogen Ur Leukocyte Esterase Urine RBC Urine WBC Urine Bacteria Ur Culture Indicated? SARS-CoV-2 (PCR) [facility] Medical History Breast cancer screening Colon cancer screening Essential (primary) hypertension Generalized edema Heart murmur Hyperlipidemia Obesity (BMI 30.0-34.9) Palpitation Rhonchi Telangiectasia of skin UTI (urinary tract infection) Social History household members: family Smoking Status: Current every day smoker alcohol intake: never Assessment & Plan Assessment & Plan narrative: PROBLEM LIST GRAM-NEGATIVE UTI. ON ZOSYN POSSIBLE COLITIS. ON ANTIBIOTICS WELL HYPOKALEMIA. SECONDARY TO HCTZ. IMPROVED ANEMIA CHRONIC DISEASE. ELEVATED LIVER ENZYMES. LIKELY ASSOCIATED WITH CHRONIC LIVER DISEASE CIRRHOSIS OF THE LIVER. NO INPATIENT TREATMENT INDICATED OBESITY. BMI OF 36 THROMBOCYTOPENIA. LIKELY ASSOCIATED WITH CHRONIC LIVER DISEASE HYPONATREMIA. MONITOR ONLY FOR NOW PLAN PATIENT WILL BE STARTED ON A DIET DISCONTINUE IV FLUID CONTINUE CURRENT ANTIBIOTICS. PATIENT IS ON ZOSYN CONSIDER DEESCALATE ANTIBIOTIC THERAPY IN THE MORNING REPLACING ZOSYN WITH FLAGYL AND LEVAQUIN WHICH SHOULD BE SUFFICIENT COVERAGE POTASSIUM LEVEL HAS IMPROVED OVERNIGHT WILL REPLACE ORALLY INDICATED SODIUM LEVEL SLIGHTLY DECREASED WILL CONSIDER RESTRICTING FLUID IF INDICATED CLINICALLY CONTINUE TO FOLLOW-UP CULTURES AVOID HEPATOTOXIC SUBSTANCES UNLESS ABSOLUTELY NEEDED AND BENEFITS OUTWEIGHED THE RISKS LIFESTYLE CHANGES RECOMMENDATIONS COUNSELING GIVEN IN REGARD TO OBESITY. ADDITIONAL MANAGEMENT PER CLINICAL COURSE POSSIBLE DISCHARGE IN NEXT 24-48 HOURS IF CLINICALLY IMPROVED OR STABLE Time Spent With Patient Critical Care time: I spent a total of [] minutes of critical care time on this patient's care today; this time is exclusive of procedural time. Quality VTE Deep Vein Thrombosis/Pulmonary Embolism Present on Admission: No
[2021-09-22 14:23] LABS: Acinetobacter baumannii Not Detected (Not Detect); Candida albicans Not Detected (Not Detect); Candida glabrata Not Detected (Not Detect); Candida krusei Not Detected (Not Detect); Candida parapsilosis Not Detected (Not Detect); Candida tropicalis Not Detected (Not Detect); E. coli Detected (Not Detect); Enterobacter cloacae complex Not Detected (Not Detect); Enterobacteriaceae species Detected (Not Detect); Enterococcus species Not Detected (Not Detect); Haemophilus influenzae Not Detected (Not Detect); KPC (carbapenem-resist gene) Not Detected (Not Detect); Listeria monocytogenes Not Detected (Not Detect); Methicillin-resistant gene Not Detected (Not Detect); Neisseria meningitidis Not Detected (Not Detect); Proteus species Not Detected (Not Detect); Pseudomonas aeruginosa Not Detected (Not Detect); Serratia marcescens Not Detected (Not Detect); Staphylococcus species Not Detected (Not Detect); Streptococcus agalactiae (Gr B Not Detected (Not Detect); Streptococcus pneumonia Not Detected (Not Detect); Streptococcus pyogenes (Gr A) Not Detected (Not Detect); Streptococcus species Not Detected (Not Detect); Vancomycin-rest genes A/B Not Detected (Not Detect)
--- NOTE | 2021-09-22 15:52 | CM.DANOTE ---
Patient is a 51 yo female who was admitted on 09/21/21 for Colitis/UTI. Pt has [employer] and [employer] for insurance and her PCP is Margaret Melton. EMR was reviewed. Per MD, pt on IV-abx for UTI and possible colitis with plan of switch to orals possibly tomorrow if stable and likely d/c home in 1-2 days. Pt's diet advanced today. SW met bedside with pt and explained role and she confirms that she lives in [place] with her mother and has local supportive sister nearby who plans to provide transport at d/c. Pt is independent at baseline and works and only has concerns with missing work and could benefit from an Excuse for Work document at d/c. Pt is hopeful she can d/c home tomorrow if stable and states she was able to tolerate jello so far but definitely does not feel stable for d/c yet today. Plan: SW to follow closely for pt to tolerate advancing diet and change from IV to oral abx and likely d/c home via sister POV in 1-2 days and possible need for Medical Excuse for Work. RICHELLE Eldridge Discharge Planning/Care Management CM Discharge Assessment Start: 09/22/21 15:51 Freq: Status: Active Protocol: Document 09/22/21 15:51 BF (Rec: 09/22/21 15:52 BF [id number]) Discharge Planning Assessment Assigned [employer] Consultant RICHELLE Parsons DPOA/Assigned Designee Name informally mother Advance Directives? No Advance Directives on File No History Provided By Patient,Medical Record Has Patient been admitted in last 30 No days? Prior Living Arrangements House Household Members family Type of transporation used prior to Drives own vehicle admit Independent with ADL's Yes Is patient alert and oriented? Yes Caregiver for Another No Barriers to Discharge No Discharge Plan Home Transportation Arrangement Sister plans to transport at d /c Referrals Initiated None needed Whiteboard Updated in Patient Room with Yes name and ext. # of [employer] Consultant Review Status In Process Please Provide Date Initial DC 09/22/21 Assessment Was Performed Next Review Type Continued Stay Review
[2021-09-22] MEDS: SODIUM CHLORIDE 0.9% FLUSH 10 ML IV (20:54)
[2021-09-23] VITALS (12 sets, daily range): BP systolic 116–124; BP diastolic 51–63; PULSE 90–95; RESP 16–18; TEMP 36.2–37.3; O2SAT 93–98
[2021-09-23] MEDS: PIPERACILLIN/TAZO 3.375 GM in SODIUM CHLORIDE 0.9% 100 ML 25 ML IV (01:28)
[2021-09-23] MEDS: FAMOTIDINE 20 MG TABLET 40 MG PO (08:08)
[2021-09-23] MEDS: LACTOBACILLUS ACIDOPHILUS TABLET 1 EACH PO ×3 (08:08→17:14)
[2021-09-23] MEDS: cefTRIAXone 1,000 MG in SODIUM CHLORIDE 0.9% 100 ML 200 ML IV (08:09)
[2021-09-23] MEDS: HEPARIN 5,000 UNIT/ML VIAL 5000 UNIT SUBCUT ×2 (08:09→20:18)
--- NOTE | 2021-09-23 08:17 | P.PN_ITS ---
Subjective Subjective Date Patient Seen: 09/23/21 Interval history: BRIEF HPI THIS IS A 51-YEAR-OLD FEMALE WITH A HISTORY OF HEP C AND CIRRHOSIS OF THE LIVER. SHE IS BEING TREATED FOR E COLI URINARY TRACT INFECTION WELL POSSIBLE COLITIS. NOW WITH E COLI BACTEREMIA WELL. TODAY SHE REPORTED FEVER OVERNIGHT DENIES ANY CHILLS NO ANY NAUSEA NO CHEST PAIN OR SHORTNESS OF BREATH SHE IS FEELING BETTER SINCE ADMISSION SHE DENIES ANY FEVER OR CHILLS OVERNIGHT NO DIARRHEA. NO OTHER COMPLAINTS REPORTED BY PATIENT AT THIS TIME Exam Vital Signs (past 8 hours): - 09/23/21 02:00 09/23/21 05:59 09/23/21 06:00 Temperature 98.6 F Pulse Rate 91 H Respiratory Rate 16 Blood Pressure 124/63 Pulse Oximetry 96 96 96 09/23/21 07:28 Temperature Pulse Rate Respiratory Rate Blood Pressure Pulse Oximetry 96 Oxygen Delivery Method Room Air Oxygen Flow Rate 0 Narrative Exam Narrative: NO ACUTE DISTRESS.? PATIENT IS ALERT ORIENTED X3. OBESE VITAL SIGNS STABLE HEAD ATRAUMATIC NORMOCEPHALIC NECK : SUPPLE WITHOUT ADENOPATHY NO CAROTID BRUITS EYE:? EOMI, PERRLA, NORMAL CONJUNCTIVA; NO JAUNDICE CHEST:? REGULAR RATE.? ? NO RUBS.? PMI IS NON DISPLACED.? NO MURMURS; NORMAL S1- S2 PULMONARY:? DECREASED BS OVER THE BASES.? MILD BIBASILAR CRACKLES NOTED; NO INCREASED DULLNESS TO PERCUSSION ABDOMEN:? OBESE BUT SOFT.? NONTENDER.? NONDISTENDED.? BOWEL SOUNDS ARE PRESENT IN ALL 4 QUADRANTS.? EXTREMITIES:? 1+ NONPITTING BILATERAL LOWER EXTREMITY EDEMA..? NO CYANOSIS CLUBBING NOTED. NEURO:? CRANIAL NERVES 2-12 GROSSLY INTACT. NO FOCAL NEUROLOGICAL DEFICIT NOTED. MSK:? NORMAL RANGE OF MOTION FOR AGE.? NO JOINT EFFUSION. SKIN:? NORMAL FOR ETHNICITY; NO ECCHYMOSIS.? NO LESION. ? GOOD? TURGOR.; NO RASHES :? NORMAL EXTERNAL GENITALIA. PSYCH :? APPROPRIATE MOOD AND AFFECT.? ALERT AWAKE ORIENTED X3 Objective Labs Result Diagrams: 09/22/21 05:50 09/22/21 05:50 Labs: Laboratory Results - last 24 hr 09/21/21 19:40 A. baumannii (PCR) Not detected Trudy albicans (PCR) Not detected C. glabrata (PCR) Not detected C. krusei (PCR) Not detected C. parapsilosis (PCR) Not detected C. tropicalis (PCR) Not detected Enterobacteriac sp PCR Detected H E. cloacae complex PCR Not detected Enterococcus sp PCR Not detected E. coli (PCR) Detected H H. influenzae (PCR) Not detected Klebsiella oxytoca PCR Not detected Klebsiella pneumoniae Not detected List. monocytogenes PCR Not detected N. meningitidis (PCR) Not detected Proteus species (PCR) Not detected Serratia marcescens PCR Not detected Staphylococcus sp PCR Not detected Staph aureus (PCR) Not detected mecA-Methicil Res Gene Not detected Streptococcus sp PCR Not detected Group A Strep (PCR) Not detected Strep agalactiae (PCR) Not detected Strep pneumoniae (PCR) Not detected P. aeruginosa (PCR) Not detected David/B-Vanco Res Genes Not detected KPC-Carbap Res Gene PCR Not detected PFSH Medical History Breast cancer screening Colon cancer screening Essential (primary) hypertension Generalized edema Heart murmur Hyperlipidemia Obesity (BMI 30.0-34.9) Palpitation Rhonchi Telangiectasia of skin UTI (urinary tract infection) Social History household members: family Smoking Status: Current every day smoker alcohol intake: never Assessment & Plan Assessment & Plan narrative: PROBLEM LIST E COLI UTI.? ON ROCEPHIN E COLI BACTEREMIA. ON ROCEPHIN POSSIBLE COLITIS.? ON ANTIBIOTICS WELL HYPOKALEMIA.? IMPROVED ANEMIA CHRONIC DISEASE. MONITOR ONLY FOR NOW ELEVATED LIVER ENZYMES.? LIKELY ASSOCIATED WITH CHRONIC LIVER DISEASE. MONITOR CLOSELY CIRRHOSIS OF THE LIVER.? NO INPATIENT TREATMENT INDICATED OBESITY.? BMI OF 36. LIFESTYLE CHANGES RECOMMENDED THROMBOCYTOPENIA.? LIKELY ASSOCIATED WITH CHRONIC LIVER DISEASE. MONITOR CLOSELY HYPONATREMIA.? MONITOR ONLY FOR NOW FEVERS. T-MAX 101 PLAN 09/23 PATIENT BLOOD CULTURE WAS NOTED TO BE POSITIVE E COLI GROWING IN PULMONARY CULTURE WILL SWITCH ANTIBIOTICS TO ROCEPHIN DAILY REPEAT BLOOD CULTURES TODAY WELL MONITOR VITAL SIGNS CLOSELY WILL ALSO GET LABS THIS MORNING AND DAILY TO FOLLOW PATIENT TO BE OUT OF BED WITH EACH MEAL AMBULATE PATIENT IN THE [place] TWICE A DAY NURSING STAFF TO ENCOURAGE PATIENT TO USE INCENTIVE SPIROMETER DEVICE ORDERED ADDITIONAL MANAGEMENT PER CLINICAL COURSE WILL DISCHARGE WHEN FEVER FREE FOR 24 HOURS IF CLINICALLY STABLE 12/20 PATIENT WILL BE STARTED ON A DIET DISCONTINUE IV FLUID CONTINUE CURRENT ANTIBIOTICS.? PATIENT IS ON ZOSYN CONSIDER DEESCALATE ANTIBIOTIC THERAPY IN THE MORNING REPLACING ZOSYN WITH FLAGYL AND LEVAQUIN WHICH SHOULD BE SUFFICIENT COVERAGE POTASSIUM LEVEL HAS IMPROVED OVERNIGHT WILL REPLACE ORALLY INDICATED SODIUM LEVEL SLIGHTLY DECREASED WILL CONSIDER RESTRICTING FLUID IF INDICATED CLINICALLY CONTINUE TO FOLLOW-UP CULTURES AVOID HEPATOTOXIC SUBSTANCES UNLESS ABSOLUTELY NEEDED AND BENEFITS OUTWEIGHED THE RISKS LIFESTYLE CHANGES RECOMMENDATIONS COUNSELING GIVEN IN REGARD TO OBESITY. ADDITIONAL MANAGEMENT PER CLINICAL COURSE POSSIBLE DISCHARGE IN NEXT 24-48 HOURS IF CLINICALLY IMPROVED OR? STABL Time Spent With Patient Critical Care time: I spent a total of [] minutes of critical care time on this patient's care today; this time is exclusive of procedural time. Quality VTE Deep Vein Thrombosis/Pulmonary Embolism Present on Admission: No
[2021-09-23] MEDS: SODIUM CHLORIDE 0.9% FLUSH 10 ML IV ×2 (08:19→20:18)
[2021-09-23] MEDS: metroNIDAZOLE 500 MG TABLET PO ×3 (09:06→20:18)
[2021-09-23 10:25] LABS: Add Manual Diff / Slide Review NO; Basophils Absolute Auto 0 /uL (0-100); Basophils Percent Auto 0.4 % (0-2); Eosinophils Absolute Auto 100 /uL (0-450); Eosinophils Percent Auto 0.7 % (2-4); Hematocrit 27.7 % (36-46); Hemoglobin 9.2 g/dL (12.0-16.0); Lymphocytes Absolute Auto 1500 /uL (1100-4500); Lymphocytes Percent Auto 20.4 % (25-40); Mean Corpuscular HGB Conc 33.4 % (30-36); Monocytes Absolute Auto 700 /uL (0-900); Monocytes Percent Auto 9.7 % (3-14); Neutrophils Absolute Auto 5200 /uL (1500-7000); Neutrophils Percent Auto 68.8 % (50-75); Platelet Count 76 X10^3/uL (150-400); Red Blood Cell Count 3.18 X10^6/uL (4.0-5.2); Red Cell Distribution Width 15.8 % (11.6-14.8); White Blood Cell Count 7.6 X10^3/uL (4.5-11.0)
[2021-09-23 10:54] LABS: Alanine Aminotransferase 31 IU/L (<35); Albumin 2.4 g/dL (3.5-5.0); Albumin Globulin Ratio 0.9 (1.0-2.8); Alkaline Phosphatase 96 U/L (38-126); Aspartate Aminotransferase 46 IU/L (14-36); Blood Urea Nitrogen 9 mg/dL (7-17); Calcium 7.2 mg/dL (8.4-10.2); Carbon Dioxide 28 mmol/L (22-32); Chloride 101 mmol/L (98-107); Estimated Glomerular Filt Rate > 60.0 mL/min (>60); Globulin 2.8 g/dL (1.7-4.1); Glucose 200 mg/dL (70-100); HEMOLYSIS < 15 (0-50); Potassium 3.1 mmol/L (3.4-5.1); Total Protein 5.2 g/dL (6.3-8.2)
[2021-09-23 10:55] LABS: Sodium 133 mmol/L (137-145)
[2021-09-23] MEDS: POTASSIUM CHLORIDE 20 MEQ TAB 40 MEQ PO (17:14)
[2021-09-23] MEDS: FAMOTIDINE 20 MG TABLET PO (20:18)
[2021-09-23] MEDS: MORPHINE 2 MG/ML INJ IV (22:05)
[2021-09-24 01:00] VITALS: RESP 16
[2021-09-24 02:00] VITALS: O2SAT 96
[2021-09-24 06:00] VITALS: BP 114/54; PULSE 77; RESP 16; TEMP 36.6; O2SAT 96
[2021-09-24 07:00] LABS: Add Manual Diff / Slide Review NO; Basophils Absolute Auto 0 /uL (0-100); Basophils Percent Auto 0.3 % (0-2); Eosinophils Absolute Auto 100 /uL (0-450); Eosinophils Percent Auto 1.3 % (2-4); Hematocrit 29.6 % (36-46); Hemoglobin 9.9 g/dL (12.0-16.0); Lymphocytes Absolute Auto 2100 /uL (1100-4500); Lymphocytes Percent Auto 25.4 % (25-40); Mean Corpuscular HGB Conc 33.5 % (30-36); Mean Corpuscular Hemoglobin 29.1 PG (26-34); Mean Corpuscular Volume 86.8 fL (80-100); Monocytes Absolute Auto 1000 /uL (0-900); Monocytes Percent Auto 12.3 % (3-14); Neutrophils Absolute Auto 4900 /uL (1500-7000); Neutrophils Percent Auto 60.7 % (50-75); Platelet Count 93 X10^3/uL (150-400); Red Blood Cell Count 3.41 X10^6/uL (4.0-5.2); Red Cell Distribution Width 15.3 % (11.6-14.8); White Blood Cell Count 8.1 X10^3/uL (4.5-11.0)
[2021-09-24 07:02] LABS: Alanine Aminotransferase 36 IU/L (<35); Albumin 2.8 g/dL (3.5-5.0); Albumin Globulin Ratio 0.8 (1.0-2.8); Alkaline Phosphatase 93 U/L (38-126); Aspartate Aminotransferase 60 IU/L (14-36); Bilirubin Total 1.1 mg/dL (0.2-1.3); Blood Urea Nitrogen 9 mg/dL (7-17); Carbon Dioxide 30 mmol/L (22-32); Chloride 106 mmol/L (98-107); Estimated Glomerular Filt Rate > 60.0 mL/min (>60); Globulin 3.5 g/dL (1.7-4.1); Glucose 101 mg/dL (70-100); HEMOLYSIS 19 (0-50); Potassium 3.9 mmol/L (3.4-5.1); Sodium 135 mmol/L (137-145); Total Protein 6.3 g/dL (6.3-8.2)
[2021-09-24 08:14] VITALS: BP 121/61; PULSE 85; RESP 16; TEMP 36.2; O2SAT 97
--- NOTE | 2021-09-24 08:14 | P.DS_ITS ---
History of Present Illness History of Present Illness Date Patient Seen: 09/24/21 Chief complaint: Ecoli, Collitas on Lt side lots of pain Narrative: History of Present Illness History of Present Illness Date Patient Seen:?09/21/21 Time Patient Seen:?21:00 Narrative: Ms. Felix is a 51W with PMH of hepatitis C cirrhosis s/p treatment, HTN who presents with abdominal pain. She states she developed an E.coli UTI last month and was treated with antibiotics. Per the chart her E.coli UTI was pansensitive. Her symptoms resolved. She then developed worsening left lower quadrant abdominal pain 3-4 days ago. She had urinary frequency and burning. She had subjective fevers. No nausea/vomiting. No diarrhea. No shortness of breath. In the ED workup was done, she was noted to have a temp of 103.4, hr 114, blood pressure 140s/60s. Labs notable for WBC 10.2, plts 87, na 130, k 2.6, creatinine 0.61. UA was cloudy with intrates, leuk esterase, WBC, and bacteria. CT abdomen showed cirrhotic changes of the liver and wall thickening of the ascending colon. She was given fluids and antibiotics and admitted for further treatment. Family history: no known history of CHF Discharge Providers Provider Date of admission: 09/21/21 21:31 Discharge Date: 09/24/21 Primary care physician: GERA Rodriguez Consults: NONE Discharge provider: Ellen Heredia DO Summary Hospital Course Discharge Diagnosis: E COLI UTI.? DISCHARGED ON OMNICEF E COLI BACTEREMIA.? DISCHARGED ON OMNICEF POSSIBLE COLITIS.? ON ANTIBIOTICS WELL HYPOKALEMIA.?? RESOLVED ANEMIA CHRONIC DISEASE.? NO ACUTE INPATIENT TREATMENT INDICATED ELEVATED LIVER ENZYMES.? LIKELY ASSOCIATED WITH CHRONIC LIVER DISEASE.? NO ACUTE INPATIENT TREATMENT CIRRHOSIS OF THE LIVER.? NO INPATIENT TREATMENT INDICATED OBESITY.? BMI OF 36.? LIFESTYLE CHANGES RECOMMENDED THROMBOCYTOPENIA.? LIKELY ASSOCIATED WITH CHRONIC LIVER DISEASE.? MONITOR CLOSELY HYPONATREMIA.? MONITOR ONLY FOR NOW FEVERS.? T-MAX 101. RESOLVED Hospital Course: THIS IS A 51-YEAR-OLD FEMALE ADMITTED TO THE HOSPITAL WITH REPORTED ABDOMINAL PAIN. WAS LIKELY ASSOCIATED WITH URINARY TRACT INFECTION WHICH WAS A RECURRENT EPISODE. SHE APPARENTLY A UTI THE MONTH PRIOR WAS TREATED FOR 7 DAYS AGAIN, A URINALYSIS SHOW SIGNIFICANT PYURIA INDICATIVE OF A URINARY TRACT INFECTION. SHE DID NOT HAVE AN ELEVATED WHITE BLOOD CELL COUNT. NO INDICATION OF ONGOING SEPSIS. SHE DID HAVE SOME FEVER ACTIVITIES HOWEVER THIS HAS RESOLVED AT THIS TIME. PATIENT S BLOOD CULTURES ALSO GREW E COLI. PANSENSITIVE E COLI GREW OUT OF THE URINE AND BLOOD CULTURE WILL DISCHARGE ON ANTIBIOTICS TO COMPLETE A 14 DAYS COURSE SHE DOES NOT APPEAR TO BE TOXIC AT THIS TIME. ADDITIONAL MANAGEMENT WILL BE DEFERRED TO OUTPATIENT PROVIDERS Status at Discharge Cognitive/behavioral status at discharge: oriented Functional status at discharge: independent ambulation Overall status at discharge: patient is back to baseline Time Spent with Patient Time spent: Greater than 30 minutes Exam Vital Signs (past 8 hours): - 09/24/21 01:00 09/24/21 02:00 09/24/21 06:00 Temperature 97.9 F Pulse Rate 77 Respiratory Rate 16 16 Blood Pressure 114/54 L Pulse Oximetry 96 96 Oxygen Delivery Method Room Air Oxygen Flow Rate 0 Narrative Exam Narrative: NO ACUTE DISTRESS. PATIENT IS ALERT ORIENTED X3. VITAL SIGNS STABLE HEAD ATRAUMATIC NORMOCEPHALIC NECK : SUPPLE WITHOUT ADENOPATHY NO CAROTID BRUITS EYE: EOMI, PERRLA, NORMAL CONJUNCTIVA; NO JAUNDICE CHEST: REGULAR RATE. NO RUBS. PMI IS NON DISPLACED. NO MURMURS; NORMAL S1- S2 PULMONARY: DECREASED BS OVER THE BASES. MILD BIBASILAR CRACKLES NOTED; NO INCREASED DULLNESS TO PERCUSSION ABDOMEN: SOFT. NONTENDER. NONDISTENDED. BOWEL SOUNDS ARE PRESENT IN ALL 4 QUADRANTS. NO MASS. EXTREMITIES: NO EDEMA.. NO CYANOSIS CLUBBING NOTED. NEURO: CRANIAL NERVES 2-12 GROSSLY INTACT. NO FOCAL NEUROLOGICAL DEFICIT NOTED. MSK: NORMAL RANGE OF MOTION FOR AGE. NO JOINT EFFUSION. SKIN: NORMAL FOR ETHNICITY; NO ECCHYMOSIS. NO LESION. GOOD TURGOR.; NO RASHES : NORMAL EXTERNAL GENITALIA. PSYCH : APPROPRIATE MOOD AND AFFECT. ALERT AWAKE ORIENTED X3 Objective Labs Result Diagrams: 09/24/21 06:40 09/24/21 06:40 Labs: Laboratory Results - last 24 hr 09/23/21 09/23/21 09/24/21 09:55 09:55 06:40 WBC 7.6 8.1 RBC 3.18 L 3.41 L Hgb 9.2 L 9.9 L Hct 27.7 L 29.6 L MCV 87.0 86.8 MCH 29.0 29.1 MCHC 33.4 33.5 RDW 15.8 H 15.3 H Plt Count 76 L 93 L Neut % (Auto) 68.8 60.7 Lymph % (Auto) 20.4 L 25.4 [place] % (Auto) 9.7 12.3 Eos % (Auto) 0.7 L 1.3 L Baso % (Auto) 0.4 0.3 Neut # (Auto) 5200 4900 Lymph # (Auto) 1500 2100 [place] # (Auto) 700 1000 H Eos # (Auto) 100 100 Baso # (Auto) 0 0 Sodium 133 L Potassium 3.1 L Chloride 101 Carbon Dioxide 28 BUN 9 Creatinine 0.50 L Estimated GFR > 60.0 BUN/Creatinine Ratio 18.0 Glucose 200 H Calcium 7.2 L Magnesium 2.0 Total Bilirubin 1.0 AST 46 H ALT 31 Alkaline Phosphatase 96 Total Protein 5.2 L Albumin 2.4 L Globulin 2.8 Albumin/Globulin Ratio 0.9 L 09/24/21 06:40 WBC RBC Hgb Hct MCV MCH MCHC RDW Plt Count Neut % (Auto) Lymph % (Auto) [place] % (Auto) Eos % (Auto) Baso % (Auto) Neut # (Auto) Lymph # (Auto) [place] # (Auto) Eos # (Auto) Baso # (Auto) Sodium 135 L Potassium 3.9 Chloride 106 Carbon Dioxide 30 BUN 9 Creatinine 0.45 L Estimated GFR > 60.0 BUN/Creatinine Ratio 20.0 Glucose 101 H Calcium 8.0 L Magnesium Total Bilirubin 1.1 AST 60 H ALT 36 H Alkaline Phosphatase 93 Total Protein 6.3 Albumin 2.8 L Globulin 3.5 Albumin/Globulin Ratio 0.8 L [facility] Medical History Breast cancer screening Colon cancer screening Essential (primary) hypertension Generalized edema Heart murmur Hyperlipidemia Obesity (BMI 30.0-34.9) Palpitation Rhonchi Telangiectasia of skin UTI (urinary tract infection) Social History household members: family Smoking Status: Current every day smoker alcohol intake: never Discharge Plan Discharge Plan Patient Disposition: Home Discharge orders & Medications Prescriptions: New famotidine [Pepcid AC] 20 mg Tablet 40 mg PO BID Qty: 120 0RF Bacid 1 billion cell- 250 mg Tablet 1 ea PO TIDWM Qty: 90 0RF cefdinir 300 mg capsule 300 mg PO Q12H Qty: 20 0RF doxycycline hyclate 100 mg tablet 100 mg PO BID Qty: 20 0RF Discontinued hydrochlorothiazide 25 mg tablet 25 mg PO DAILY Qty: 90 1RF Rx Instructions: Patient needs follow up appt before any further refills. omeprazole 20 mg capsule,delayed release(DR/EC) 20 mg PO DAILY Qty: 30 3RF Follow up/Referrals: Margaret Escudero ARNP [Primary Care Provider] - Diet/Activity/Treatments Diet: Regular Activity: TOLERATED Visit Report/Discharge Packet Instructions: DI for Urinary Tract Infection (UTI), How to Prevent Falls, DI for Sepsis -- Adult, DI for Colitis Discharge Data Primary Care Provider: Margaret Escudero Quality VTE Deep Vein Thrombosis/Pulmonary Embolism Present on Admission: No
[2021-09-24] MEDS: cefTRIAXone 1,000 MG in SODIUM CHLORIDE 0.9% 100 ML 200 ML IV (08:19)
[2021-09-24 08:20] VITALS: O2SAT 97
[2021-09-24] MEDS: SODIUM CHLORIDE 0.9% FLUSH 10 ML IV (08:20)
[2021-09-24] MEDS: FAMOTIDINE 20 MG TABLET PO (08:20)
[2021-09-24] MEDS: metroNIDAZOLE 500 MG TABLET PO (08:20)
[2021-09-24] MEDS: HEPARIN 5,000 UNIT/ML VIAL 5000 UNIT SUBCUT (08:20)
[2021-09-24] MEDS: LACTOBACILLUS ACIDOPHILUS TABLET 1 EACH PO (08:20)
== END 2021-09-24 09:55 | disposition home or self-care (01) | DRG 463 ==
LOC: ED 21:31 → AC 21:31
PROVIDERS: Hospitalist; Admitting Provider Internal Medicine; Emergency Provider Emergency Medicine; Family Provider Nurse Practitioner Family; PCP Registered Nurse; Referring Provider Emergency Medicine; Visit Provider Internal Medicine
DX: N39.0 Urinary tract infection, site not specified (principal); R78.81 Bacteremia; B96.20 Unspecified Escherichia coli [E. coli] as the cause of diseases classified elsewhere; D69.59 Other secondary thrombocytopenia; E87.1 Hypo-osmolality and hyponatremia; R06.02 Shortness of breath; D64.89 Other specified anemias; K52.9 Noninfective gastroenteritis and colitis, unspecified; K74.69 Other cirrhosis of liver; B19.20 Unspecified viral hepatitis C without hepatic coma; F17.210 Nicotine dependence, cigarettes, uncomplicated; E66.9 Obesity, unspecified; I10 Essential (primary) hypertension; K21.9 Gastro-esophageal reflux disease without esophagitis; Z20.822 Contact with and (suspected) exposure to COVID-19; Z68.35 Body mass index [BMI] 35.0-35.9, adult
CPT/HCPCS: 36415; 71045; 74177; 80048; 80053; 80076; 81001; 81003; 83605; 83690; 83735; 83880; 84100; 84145; 85025; 87040; 87077; 87086; 87150; 87186; 87205; 87635; 93005; 93306; 94760; 96361; 96365; 96375; 99285; C9803; A9270; C9113; J0696; J1644; J1650; J1885; J2270; J2543; Q9967

== ENCOUNTER 2021-09-29 20:23 | Emergency (ER) | payer OTHER, MEDICAID, SELFPAY ==
[2021-09-21 22:26] VITALS: BMI 35.8
[2021-09-29 20:26] VITALS: BP 149/66; PULSE 101; RESP 22; TEMP 36.7; O2SAT 98
--- NOTE | 2021-09-29 20:29 | DI.RAD.S_ITS ---
PROCEDURE: XR CHEST 1V INDICATIONS: suspected sepsis TECHNIQUE: One view of the chest was acquired. COMPARISON: [facility], CT, CT ABDOMEN PELVIS W CON, 09/21/2021, 20:58. [facility], CR, XR CHEST 1V, 09/21/2021, 20:17. [facility], CR, XR CHEST 2V, 04/01/2021, 10:24. FINDINGS: Surgical changes and devices: None. Lungs and pleura: Lungs are clear. No pleural effusions or pneumothorax. Mediastinum: Mediastinal contours appear unchanged. Heart size is normal. Bones and chest wall: No suspicious bony lesions. Overlying soft tissues appear unremarkable. IMPRESSION: No acute cardiopulmonary abnormality. Dictated by: Rk Btares M.D. on 09/29/2021 at 21:19 Approved by: Rk Batres M.D. on 09/29/2021 at 21:20
[2021-09-29 21:16] LABS: Appearance Urine UA SL CLOUDY; Bilirubin Urine UA 2+ (NEGATIVE); Leukocyte Esterase Urine UA TRACE (NEGATIVE); Occult Blood Urine UA 3+ (Negative); Specific Gravity Urine UA 1.025 (1.000-1.035)
[2021-09-29 21:18] LABS: Color Urine UA BROWN; pH Urine UA 6.5 (4.5-8.0)
[2021-09-29 21:20] LABS: RBC Urine 1-5/HPF (0-5/HPF)
--- NOTE | 2021-09-29 21:20 | PC.NURSE ---
PIV attempted x 2, was able to collect some blood for lab but no IV placed. Urine cola-colored and sent to lab. Dr Mayer notified of above.
[2021-09-29 21:21] LABS: Bacteria Urine Few (2-10); Ictotest Urine Positive (Negative); Mucus Urine 1+ (Negative); Squamous Epithelial Cell Urine 1-5 /HPF (0-5/HPF); WBC Urine 0-1/HPF (0-5/HPF)
[2021-09-29 21:22] LABS: Culture Indicated Urine Specimen Cultured
[2021-09-29 21:30] LABS: Add Manual Diff / Slide Review NO; Basophils Absolute Auto 100 /uL (0-100); Basophils Percent Auto 0.6 % (0-2); Eosinophils Absolute Auto 100 /uL (0-450); Eosinophils Percent Auto 0.5 % (2-4); Hematocrit 26.1 % (36-46); Hemoglobin 8.7 g/dL (12.0-16.0); Lymphocytes Absolute Auto 2000 /uL (1100-4500); Mean Corpuscular HGB Conc 33.2 % (30-36); Mean Corpuscular Hemoglobin 29.6 PG (26-34); Mean Corpuscular Volume 89.1 fL (80-100); Monocytes Absolute Auto 200 /uL (0-900); Neutrophils Absolute Auto 8400 /uL (1500-7000); Neutrophils Percent Auto 77.9 % (50-75); Platelet Count 161 X10^3/uL (150-400); Red Blood Cell Count 2.93 X10^6/uL (4.0-5.2); Red Cell Distribution Width 17.4 % (11.6-14.8); White Blood Cell Count 10.7 X10^3/uL (4.5-11.0)
[2021-09-29 21:42] LABS: Alanine Aminotransferase 61 IU/L (<35); Albumin 3.2 g/dL (3.5-5.0); Albumin Globulin Ratio 0.8 (1.0-2.8); Alkaline Phosphatase 103 U/L (38-126); Aspartate Aminotransferase 173 IU/L (14-36); BUN Creatinine Ratio 18.4 (6-22); Blood Urea Nitrogen 9 mg/dL (7-17); Calcium 8.5 mg/dL (8.4-10.2); Carbon Dioxide 32 mmol/L (22-32); Chloride 107 mmol/L (98-107); Estimated Glomerular Filt Rate > 60.0 mL/min (>60); Globulin 4.2 g/dL (1.7-4.1); Glucose 118 mg/dL (70-100); Lipase 156 U/L (23-300); Sodium 136 mmol/L (137-145); Total Protein 7.4 g/dL (6.3-8.2)
[2021-09-29 21:48] LABS: HEMOLYSIS 85 (0-50)
[2021-09-29 21:49] LABS: Potassium 4.4 mmol/L (3.4-5.1)
[2021-09-29 21:59] LABS: Procalcitonin 0.26 ng/mL (<0.5)
[2021-09-29 22:07] LABS: Lactate (Lactic Acid) 1.3 mmol/L (0.7-2.1)
--- NOTE | 2021-09-29 22:24 | ED_ITS ---
HPI - General Adult General Chief complaint: Abdominal Pain Stated complaint: PEEING BLOOD Time Seen by Provider: 09/29/21 21:02 Source: patient Mode of arrival: Ambulatory History of Present Illness HPI narrative: Patient is a 51-year-old female. Was recently admitted to the hospital for urinary sepsis and bacteremia. Was subsequently discharged. Is currently on Omnicef and doxycycline. Has been taking this for the past several days. Overall she feels much better than when she did during her last visit and subsequent admission to the hospital. She states that earlier today she had blood in her urine. She was concerned that this possibly was indication that the infection was returning. Related Data Previous Rx's Medication Instructions Recorded L.acidophilus-L.bulgar-B.bifid-S.thermoph 1 ea PO TIDWM #90 tab 09/24/21 1 billion cell-250 mg tablet (Bacid) cefdinir 300 mg capsule 300 mg PO Q12H #20 cap 09/24/21 doxycycline hyclate 100 mg tablet 100 mg PO BID #20 tab 09/24/21 famotidine 20 mg tablet (Pepcid AC) 40 mg PO BID #120 tab 09/24/21 furosemide 20 mg tablet (Lasix) 20 mg PO DAILY #14 tab 09/29/21 potassium chloride 10 mEq 10 meq PO DAILY #14 tab 09/29/21 tablet,extended release Allergies Allergy/AdvReac Type Severity Reaction Status Date / Time codeine [CODEINE] Allergy Mild Verified 08/26/21 14:54 ibuprofen [IBUPROFEN] AdvReac Mild HEADACHES Verified 08/26/21 14:54 Review of Systems Constitutional Constitutional: Denies chills and Denies fever(s) Cardiovascular Cardiovascular: Reports system reviewed and no additional complaints, except as documented Respiratory Respiratory: Reports system reviewed and no additional complaints, except as documented Gastrointestinal Gastrointestinal: Reports system reviewed and no additional complaints, except as documented, Denies nausea and Denies vomiting Genitourinary Genitourinary: Denies abnormal vaginal bleeding and Denies dysuria Integumentary/Breasts Skin/Breast: Reports system reviewed and no additional complaints, except as documented Neurologic Neurologic: Reports system reviewed and no additional complaints, except as documented Hematologic/Lymphatic On Anticoagulants: No Patient History Medical History Breast cancer screening Colon cancer screening Essential (primary) hypertension Generalized edema Heart murmur Hyperlipidemia Obesity (BMI 30.0-34.9) Palpitation Rhonchi Telangiectasia of skin UTI (urinary tract infection) Social History household members: family Smoking Status: Current every day smoker alcohol intake: never Smoking Status: Current every day smoker tobacco type: cigarettes alcohol intake frequency: holidays/special occasions only Substance Use Type: does not use Exam Initial Vital Signs Initial Vital Signs: Vital Signs Temperature 98.1 F 09/29/21 20:26 Pulse Rate 101 H 09/29/21 20:26 Respiratory Rate 22 09/29/21 20:26 Blood Pressure 149/66 H 09/29/21 20:26 Pulse Oximetry 98 09/29/21 20:26 Const General: cooperative, healthy appearing and comfortable Resp Effort & Inspection: normal respiratory effort Cardio Rate: regular rate GI Inspection: non-distended Skin General: no rashes or lesions noted Extrem General: normal to inspection Psych Appearance: grossly normal and well kempt Course Orders Ordered: ED Orders 09/29/21 20:29 XR chest 1V Stat Blood Culture Stat 09/29/21 20:55 Ictotest Urine Stat Urinalysis and Microscopic Stat Urine Culture Stat 09/29/21 21:15 Complete Blood Count AUTO DIFF Stat Comprehensive Metabolic Panel Stat Lipase Stat Procalcitonin Stat 09/29/21 21:45 Lactate (Lactic Acid) Stat Discontinued Medications Sodium Chloride (Normal Saline 0.9%) 1,000 mls @ 1,000 mls/hr IV BOLUS ONE Stop: 09/29/21 21:28 Last Admin: 09/29/21 22:39 Dose: Not Given Documented by: CULLEN Vital Signs Vital signs: Vital Signs - 8 hr 09/29/21 22:43 Pulse Rate 91 H Respiratory Rate 18 Blood Pressure 122/70 Pulse Oximetry 100 Medical Decision Making Medical Records Medical records reviewed: Yes I reviewed the patient's medical records. Lab Data Lab results reviewed: Yes I reviewed the patient's lab results. Result diagrams: 09/29/21 21:15 09/29/21 21:15 Labs: Lab Results 09/29/21 09/29/21 09/29/21 Range/Units 20:55 21:15 21:15 WBC 10.7 (4.5-11.0) X10^3/uL RBC 2.93 L (4.0-5.2) X10^6/uL Hgb 8.7 L (12.0-16.0) g/dL Hct 26.1 L (36-46) % MCV 89.1 (80-100) fL MCH 29.6 (26-34) PG MCHC 33.2 (30-36) % RDW 17.4 H (11.6-14.8) % Plt Count 161 (150-400) X10^3/uL Neut % (Auto) 77.9 H (50-75) % Lymph % (Auto) 19.0 L (25-40) % [place] % (Auto) 2.0 L (3-14) % Eos % (Auto) 0.5 L (2-4) % Baso % (Auto) 0.6 (0-2) % Neut # (Auto) 8400 H (4978-7847) /uL Lymph # (Auto) 2000 (6625-4059) /uL [place] # (Auto) 200 (0-900) /uL Eos # (Auto) 100 (0-450) /uL Baso # (Auto) 100 (0-100) /uL Sodium 136 L (137-145) mmol/L Potassium 4.4 (3.4-5.1) mmol/L Chloride 107 (98-107) mmol/L Carbon Dioxide 32 (22-32) mmol/L BUN 9 (7-17) mg/dL Creatinine 0.49 L (0.52-1.04) mg/dL Estimated GFR > 60.0 (>60) mL/min BUN/Creatinine Ratio 18.4 (6-22) Glucose 118 H (70-100) mg/dL Lactate (0.7-2.1) mmol/L Calcium 8.5 (8.4-10.2) mg/dL Total Bilirubin 4.0 H (0.2-1.3) mg/dL AST 173 H (14-36) IU/L ALT 61 H (<35) IU/L Alkaline Phosphatase 103 (38-126) U/L Total Protein 7.4 (6.3-8.2) g/dL Albumin 3.2 L (3.5-5.0) g/dL Globulin 4.2 H (1.7-4.1) g/dL Albumin/Globulin Ratio 0.8 L (1.0-2.8) Lipase 156 (23-300) U/L Procalcitonin 0.26 (<0.5) ng/mL Urine Color Brown Urine Appearance Sl cloudy Urine pH 6.5 (4.5-8.0) Ur Specific [place] 1.025 (1.000-1.035) Urine Protein TNP Urine Glucose (UA) TNP Urine Ketones TNP Urine Occult Blood 3+ H (Negative) Urine Nitrate TNP Urine Bilirubin 2+ H (NEGATIVE) Ur Bilirubin Confirm Positive H (Negative) Urine Urobilinogen 1.0 (0.2) E.U./dL Ur Leukocyte Esterase Trace H (NEGATIVE) Urine RBC 1-5/hpf (0-5/HPF) Urine WBC 0-1/hpf (0-5/HPF) Ur Squamous Epith Cells 1-5 /hpf (0-5/HPF) Urine Bacteria Few (2-10) H (None) Urine Mucus 1+ H (Negative) Ur Culture Indicated? Specimen cultured 09/29/21 Range/Units 21:45 WBC (4.5-11.0) X10^3/uL RBC (4.0-5.2) X10^6/uL Hgb (12.0-16.0) g/dL Hct (36-46) % MCV (80-100) fL MCH (26-34) PG MCHC (30-36) % RDW (11.6-14.8) % Plt Count (150-400) X10^3/uL Neut % (Auto) (50-75) % Lymph % (Auto) (25-40) % [place] % (Auto) (3-14) % Eos % (Auto) (2-4) % Baso % (Auto) (0-2) % Neut # (Auto) (0351-8359) /uL Lymph # (Auto) (5561-6201) /uL [place] # (Auto) (0-900) /uL Eos # (Auto) (0-450) /uL Baso # (Auto) (0-100) /uL Sodium (137-145) mmol/L Potassium (3.4-5.1) mmol/L Chloride (98-107) mmol/L Carbon Dioxide (22-32) mmol/L BUN (7-17) mg/dL Creatinine (0.52-1.04) mg/dL Estimated GFR (>60) mL/min BUN/Creatinine Ratio (6-22) Glucose (70-100) mg/dL Lactate 1.3 (0.7-2.1) mmol/L Calcium (8.4-10.2) mg/dL Total Bilirubin (0.2-1.3) mg/dL AST (14-36) IU/L ALT (<35) IU/L Alkaline Phosphatase (38-126) U/L Total Protein (6.3-8.2) g/dL Albumin (3.5-5.0) g/dL Globulin (1.7-4.1) g/dL Albumin/Globulin Ratio (1.0-2.8) Lipase (23-300) U/L Procalcitonin (<0.5) ng/mL Urine Color Urine Appearance Urine pH (4.5-8.0) Ur Specific [place] (1.000-1.035) Urine Protein Urine Glucose (UA) Urine Ketones Urine Occult Blood (Negative) Urine Nitrate Urine Bilirubin (NEGATIVE) Ur Bilirubin Confirm (Negative) Urine Urobilinogen (0.2) E.U./dL Ur Leukocyte Esterase (NEGATIVE) Urine RBC (0-5/HPF) Urine WBC (0-5/HPF) Ur Squamous Epith Cells (0-5/HPF) Urine Bacteria (None) Urine Mucus (Negative) Ur Culture Indicated? Imaging Data Chest x-ray: Radiologist's Impression: [address] [id number] XRay Report Signed Patient: Lana Felix MR#: [id number] : 1970 Acct:[id number] Age/Sex: 51 / F Date of Service: 09/29/21 Loc: ED Accession Number: [id number] ?? Procedure: XR chest 1V Ordering Provider: Abelardo Mayer D.O. PROCEDURE:? XR CHEST 1V ? INDICATIONS:? suspected sepsis ? TECHNIQUE:? One view of the chest was acquired.? ? COMPARISON:? [facility], CT, CT ABDOMEN PELVIS W CON, 09/21/2021, 20:58.? [facility], CR, XR CHEST 1V, 09/21/2021, 20:17.? [facility], CR, XR CHEST 2V, 04/01/2021, 10:24. ? FINDINGS:? ? Surgical changes and devices:? None.? ? Lungs and pleura:? Lungs are clear.? No pleural effusions or pneumothorax.? ? Mediastinum:? Mediastinal contours appear unchanged.? Heart size is normal.? ? Bones and chest wall:? No suspicious bony lesions.? Overlying soft tissues appear unremarkable.? ? IMPRESSION:? No acute cardiopulmonary abnormality. ? ? ? Dictated by: Rk Batres M.D. on 09/29/2021 at 21:19 ? ? Approved by: Rk Batres M.D. on 09/29/2021 at 21:20?? MDM Narrative Medical decision making narrative: Patient is well-appearing. Is tolerating oral intake. Is currently on antibiotics. Does have blood in her urine which very well could be because of the known infection that she is having. Review of her urine culture shows a p ansensitive E coli so the antibiotics she is on should be sufficient for this. No indication to changes antibiotics today. Has a benign exam. Patient does have elevation in her bilirubin she was informed of this. I feel this is an incidental finding and that she needs to contact her primary doctor for follow- up with this. She expressed understanding. Will discharge patient home with strict return precautions. She expressed understanding agreement. Discharge Plan Departure Patient Disposition: Home Clinical Impression: Hematuria Instructions: DI for Hematuria Activity Restrictions/Additional Instructions: Continue to take your antibiotics and until the treatment is completed. You do need to contact your primary doctor because your bilirubin levels today were elevated. We are also going to put you on Lasix and potassium supplement because of the swelling. Return to the emergency department for any new or worsening symptoms. Prescriptions: New furosemide [Lasix] 20 mg tablet 20 mg PO DAILY Qty: 14 0RF potassium chloride 10 mEq tablet extended release 10 meq PO DAILY Qty: 14 0RF No Action famotidine [Pepcid AC] 20 mg Tablet 40 mg PO BID Qty: 120 0RF Bacid 1 billion cell- 250 mg Tablet 1 ea PO TIDWM Qty: 90 0RF cefdinir 300 mg capsule 300 mg PO Q12H Qty: 20 0RF doxycycline hyclate 100 mg tablet 100 mg PO BID Qty: 20 0RF Referrals: Margaret Escudero ARNP [Primary Care Provider] -
[2021-09-29 22:43] VITALS: BP 122/70; PULSE 91; RESP 18; O2SAT 100
== END 2021-09-29 22:43 | disposition home or self-care (01) ==
PROVIDERS: Emergency Provider Emergency Medicine; Family Provider Nurse Practitioner Family; PCP Registered Nurse
DX: N39.0 Urinary tract infection, site not specified (principal); R31.9 Hematuria, unspecified; B96.20 Unspecified Escherichia coli [E. coli] as the cause of diseases classified elsewhere
CPT/HCPCS: 36415; 71045; 80053; 81001; 83605; 83690; 84145; 85025; 87040; 87086; 99283; 99284

== ENCOUNTER 2021-10-17 17:47 | Emergency (ER) | payer OTHER, MEDICAID, SELFPAY ==
[2021-09-21 22:26] VITALS: BMI 35.8
[2021-10-17 18:07] VITALS: BP 139/66; PULSE 93; RESP 19; TEMP 37.1; O2SAT 99; BMI 27.4
[2021-10-17 18:46] LABS: Add Manual Diff / Slide Review NO; Basophils Absolute Auto 0 /uL (0-100); Basophils Percent Auto 0.4 % (0-2); Eosinophils Absolute Auto 100 /uL (0-450); Hematocrit 26.2 % (36-46); Hemoglobin 8.6 g/dL (12.0-16.0); Lymphocytes Absolute Auto 700 /uL (1100-4500); Lymphocytes Percent Auto 29.5 % (25-40); Mean Corpuscular Hemoglobin 30.6 PG (26-34); Mean Corpuscular Volume 92.7 fL (80-100); Monocytes Absolute Auto 300 /uL (0-900); Monocytes Percent Auto 10.7 % (3-14); Neutrophils Absolute Auto 1500 /uL (1500-7000); Neutrophils Percent Auto 57.4 % (50-75); Platelet Count 73 X10^3/uL (150-400); Red Blood Cell Count 2.83 X10^6/uL (4.0-5.2); White Blood Cell Count 2.5 X10^3/uL (4.5-11.0)
[2021-10-17 18:53] LABS: Alanine Aminotransferase 38 IU/L (<35); Albumin 3.5 g/dL (3.5-5.0); Albumin Globulin Ratio 0.9 (1.0-2.8); Alkaline Phosphatase 103 U/L (38-126); Aspartate Aminotransferase 56 IU/L (14-36); BUN Creatinine Ratio 9.1 (6-22); Bilirubin Total 0.8 mg/dL (0.2-1.3); Blood Urea Nitrogen 5 mg/dL (7-17); Calcium 8.7 mg/dL (8.4-10.2); Carbon Dioxide 30 mmol/L (22-32); Chloride 105 mmol/L (98-107); Estimated Glomerular Filt Rate > 60.0 mL/min (>60); Globulin 3.7 g/dL (1.7-4.1); Glucose 98 mg/dL (70-100); HEMOLYSIS < 15 (0-50); Lipase 96 U/L (23-300); Potassium 3.3 mmol/L (3.4-5.1); Sodium 137 mmol/L (137-145); Total Protein 7.2 g/dL (6.3-8.2)
[2021-10-17 19:15] LABS: Anisocytosis 2+; Hypochromasia 1+; Macrocytosis 1+
[2021-10-17 19:16] LABS: Dimorphic RBC PRESENT; Microcytosis 1+
--- NOTE | 2021-10-17 19:45 | ED_ITS ---
HPI - Abdominal Pain General Chief Complaint: Abdominal Pain Stated Complaint: abd pain x6 hours Time Seen by Provider: 10/17/21 18:46 Source: patient Mode of arrival: Family Vehicle History of Present Illness HPI narrative: 51F smoker with history of colitis, liver disease, recent hospitalization for E coli bacteremia presents with family in the chief complaint of a sudden onset, severe left upper abdominal pain that started about 6 hours ago. She has had chills but denies any fever. She has had nausea but denies vomiting. She sta lamin her pain is made worse by motion including deep breaths and improves with rest. She has had no change in her bowel movements and is able to pass gas. She's had no urinary complaints. She denies any change in medications or diet. She denies recent travel or exposure to other ill persons. Related Data Previous Rx's Medication Instructions Recorded L.acidophilus-L.bulgar-B.bifid-S.thermoph 1 ea PO TIDWM #90 tab 09/24/21 1 billion cell-250 mg tablet (Bacid) cefdinir 300 mg capsule 300 mg PO Q12H #20 cap 09/24/21 doxycycline hyclate 100 mg tablet 100 mg PO BID #20 tab 09/24/21 famotidine 20 mg tablet (Pepcid AC) 40 mg PO BID #120 tab 09/24/21 furosemide 20 mg tablet (Lasix) 20 mg PO DAILY #14 tab 09/29/21 potassium chloride 10 mEq 10 meq PO DAILY #14 tab 09/29/21 tablet,extended release ondansetron 4 mg disintegrating 4 mg PO TID-QID PRN #10 tab 10/18/21 tablet oxycodone 5 mg tablet 5 mg PO Q4-6H PRN #10 tab 10/18/21 Allergies Allergy/AdvReac Type Severity Reaction Status Date / Time codeine [CODEINE] Allergy Mild Verified 10/17/21 18:12 ibuprofen [IBUPROFEN] AdvReac Mild HEADACHES Verified 10/17/21 18:12 Review of Systems Review of Systems Narrative: GENERAL: Denies chills, fatigue, malaise, fever, sweats. HEENT: Denies sinus pain, ear pain, sore throat, difficulty swallowing, dizziness. RESPIRATORY: Denies dyspnea, cough, wheezing, hemoptysis, sputum. CARDIOVASCULAR: Denies chest pain, palpitations, orthopnea, edema, GASTROINTESTINAL: See HPI : Denies dysuria, frequency, incontinence, hematuria, urinary retention. MUSCULOSKELETAL: denies weakness, joint pain, or bony pain SKIN: Denies rash, skin lesions, or other NEUROLOGIC: Denies weakness, headache, numbness, change in speech, confusion, seizures, incoordination. PSYCHIATRIC: No concerning psychosocial issues. 12 point review of systems is negative except for those stated above Patient History Medical History Breast cancer screening Colon cancer screening Essential (primary) hypertension Generalized edema Heart murmur Hyperlipidemia Obesity (BMI 30.0-34.9) Palpitation Rhonchi Telangiectasia of skin UTI (urinary tract infection) Social History household members: family Smoking Status: Current every day smoker alcohol intake: never Smoking Status: Current every day smoker tobacco type: cigarettes alcohol intake frequency: holidays/special occasions only Substance Use Type: does not use Exam Narrative Exam Narrative: GENERAL: [51] year old patient appears stated age. Well-developed patient, in mild distress. Obviously in pain and rubbing her abdomen HEAD: Atraumatic. Normocephalic. EYES: Pupils equal round and reactive. Extraocular motions intact. No scleral icterus. No injection or drainage. ENT: Nose without bleeding, purulent drainage. Throat without erythema, tonsillar hypertrophy or exudate. Airway patent. NECK: Trachea midline. Non tender CARDIOVASCULAR: Regular rate and rhythm without murmurs, gallops, or rubs. RESPIRATORY: Clear to auscultation. Breath sounds equal bilaterally. No wheezes, rales, or rhonchi. GASTROINTESTINAL: Abdomen soft, tender to palpate and left upper quadrant nondistended. Bowel sounds present, perhaps slightly depressed in the left side EXTREMITIES: No edema or joint tenderness. BACK: Nontender without deformity or crepitance. No flank tenderness. NEURO: AOx3. SKIN: No rash or erythema of visible areas Initial Vital Signs Initial Vital Signs: Vital Signs Temperature 98.8 F 10/17/21 18:07 Pulse Rate 93 H 10/17/21 18:07 Respiratory Rate 19 10/17/21 18:07 Blood Pressure 139/66 10/17/21 18:07 Pulse Oximetry 99 10/17/21 18:07 Course Orders Ordered: Discontinued Medications Hydromorphone HCl (Hydromorphone 1 Mg Inj) 1 mg IV NOW ONE Stop: 10/17/21 19:50 Last Admin: 10/17/21 19:54 Dose: 1 mg Documented by: TREVOR Sodium Chloride (Normal Saline 0.9%) 1,000 mls @ 1,000 mls/hr IV BOLUS ONE Stop: 10/17/21 20:48 Last Infusion: 10/17/21 22:50 Dose: 0 mls/hr Documented by: Admin: 10/17/21 19:55 Dose: 1,000 mls/hr Documented by: TREVOR Ondansetron HCl (Ondansetron 4 Mg/2 Ml Inj) 4 mg IV NOW ONE Stop: 10/17/21 19:50 Last Admin: 10/17/21 19:54 Dose: 4 mg Documented by: TREVOR Ondansetron HCl (Ondansetron 4 Mg Odt Prepack) 1 bottle MISC SEEINSTR ONE Stop: 10/17/21 23:05 Last Admin: 10/18/21 00:14 Dose: 1 bottle Documented by: TREVOR Oxycodone/Acetaminophen (Oxycodone/Apap 5/325 Prepack) 1 bottle MISC SEEINSTR ONE Stop: 10/17/21 23:05 Last Admin: 10/18/21 00:14 Dose: 1 bottle Documented by: TREVOR Pantoprazole Sodium (Pantoprazole 40 Mg Vial) 40 mg IV NOW ONE Stop: 10/17/21 22:16 Last Admin: 10/17/21 22:48 Dose: 40 mg Documented by: TREVOR Reevaluation(s) Reevaluation #1: Pain well controlled after above-stated therapies. She is tolerating orals without difficulty in ambulating through the department. Vital Signs Vital signs: Vital Signs - 8 hr 10/18/21 00:31 Pulse Rate 89 Respiratory Rate 18 Blood Pressure 126/60 Pulse Oximetry 96 MDM - Abdominal Pain Lab Data Result diagrams: 10/17/21 18:30 10/17/21 18:30 Labs: Lab Results 10/17/21 10/17/21 Range/Units 18:30 18:30 WBC 2.5 L (4.5-11.0) X10^3/uL RBC 2.83 L (4.0-5.2) X10^6/uL Hgb 8.6 L (12.0-16.0) g/dL Hct 26.2 L (36-46) % MCV 92.7 (80-100) fL MCH 30.6 (26-34) PG MCHC 33.0 (30-36) % RDW 22.0 H (11.6-14.8) % Plt Count 73 L (150-400) X10^3/uL Neut % (Auto) 57.4 (50-75) % Lymph % (Auto) 29.5 (25-40) % [place] % (Auto) 10.7 (3-14) % Eos % (Auto) 2.0 (2-4) % Baso % (Auto) 0.4 (0-2) % Neut # (Auto) 1500 (2053-9293) /uL Lymph # (Auto) 700 L (6654-1688) /uL [place] # (Auto) 300 (0-900) /uL Eos # (Auto) 100 (0-450) /uL Baso # (Auto) 0 (0-100) /uL RBC Morphology See below Dimorphic RBCs Present Hypochromasia 1+ H Anisocytosis 2+ H Microcytosis 1+ H Macrocytosis 1+ H Sodium 137 (137-145) mmol/L Potassium 3.3 L (3.4-5.1) mmol/L Chloride 105 (98-107) mmol/L Carbon Dioxide 30 (22-32) mmol/L BUN 5 L (7-17) mg/dL Creatinine 0.55 (0.52-1.04) mg/dL Estimated GFR > 60.0 (>60) mL/min BUN/Creatinine Ratio 9.1 (6-22) Glucose 98 (70-100) mg/dL Calcium 8.7 (8.4-10.2) mg/dL Total Bilirubin 0.8 (0.2-1.3) mg/dL AST 56 H (14-36) IU/L ALT 38 H (<35) IU/L Alkaline Phosphatase 103 (38-126) U/L Total Protein 7.2 (6.3-8.2) g/dL Albumin 3.5 (3.5-5.0) g/dL Globulin 3.7 (1.7-4.1) g/dL Albumin/Globulin Ratio 0.9 L (1.0-2.8) Lipase 96 (23-300) U/L Point of care testing: Urine Dip Bedside Urine Glucose Negative Bedside Urine Bilirubin - Negative Bedside Urine Ketone - Negative Urine Specific [place] 1.020 Bedside Urine Occult Blood - Negative Bedside Urine pH 6.5 Bedside Urine Protein - Negative Bedside Urine Urobilinogen - Negative Bedside Urine Nitrite - Negative Bedside Urine Leukocytes - Negative Esterase Imaging Data CT scan - abdomen/pelvis: Radiologist's Impression: Lana Felix??51??F??1970 ? Allergy/Adv: codeine, ibuprofen Close Abdomen/Pelvis CT (Signed) Ethan Chun - 10/17/21 Chest X-Ray (Signed) Rk Batres - 09/29/21 Echocardiogram Ultrasound (Signed) Abelardo Quintana - 09/22/21 Telemetry Strips 09/21/21 Abdomen/Pelvis CT (Signed) Daniel Marquez - 09/21/21 Chest X-Ray (Signed) Daniel Marquez - 09/21/21 Chest X-Ray (Signed) Hermann Saldaña - 04/01/21 Abdomen/Pelvis CT (Signed) Nigel Aguilar - 01/14/[address] (Signed) Hermann Saldaña - 12/19/20 Chest X-Ray (Signed) Marcial Thomas - 11/09/20 [address] [address] CT Scan Report Signed Patient: Lana Felix MR#: [id number] : 1970 Acct:[id number] Age/Sex: 51 / F Date of Service: 10/17/21 Loc: ED Accession Number: [id number] ?? Procedure: CT abdomen pelvis w con Ordering Provider: Osbaldo Mayes D.O. PROCEDURE:? CT ABDOMEN PELVIS W CON ? INDICATIONS:? severe left sided pain, 07/13 ? TECHNIQUE:? After the administration of intravenous contrast, axial sections acquired from the lung bases to the pubic symphysis.? Coronal and sagittal reformats were performed.? For radiation dose reduction, the following was used:? automated exposure control, adjustment of mA and/or kV according to patient size.? ? COMPARISON:? [facility], CT, CT ABDOMEN PELVIS W CON, 09/21/2021, 20:58.? [facility], CT, CT ABDOMEN PELVIS W CON, 01/14/2021, 15:54. ? FINDINGS:? Image quality:? Excellent.? ? Lung bases:? Unremarkable.? Small hiatal hernia. Heart:? No significant findings. ? ABDOMEN: Liver:? Stable appearance of cirrhotic liver.? ? Gallbladder:? Unremarkable? ? Biliary ducts:? Unremarkable.? ? Pancreas:? Unremarkable.? ? Spleen:? Persistent splenomegaly.? Redemonstration of multiple splenic hypodensities predominantly peripheral in location.? These are again possibly related to splenic infarctions. Adrenal Glands:? Unremarkable.? ? Kidneys and Ureters:Kidneys are symmetric in size and enhancement, and there is no obstructive uropathy.? No perinephric inflammatory changes. Ureters are normal in course and caliber.? Stomach and Bowel:? Stomach, small bowel loops, and colon are unremarkable.? Normal appendix.? Previously seen circumferential wall thickening of the ascending colon has resolved. Peritoneum:? No abnormal intraperitoneal fluid.? No free air.? ? Ventral Wall: ? No hernias.? Abdominal Nodes:? No retroperitoneal or mesenteric adenopathy by size criteria.? Vessels:? Aorta and inferior vena cava are normal in size.? ? PELVIS: Pelvic Organs:? Unremarkable.? ? Bladder:? Urinary bladder thickness appears normal for degree of distention. No perivesicular inflammatory stranding.? Pelvic Nodes: No enlarged lymph nodes.? Miscellaneous: No hernias are seen.? Diffuse subcutaneous soft tissue stranding possibly related to early anasarca. ? ? Bones:? No acute vertebral body compression fractures. Multilevel spondylitic changes throughout the imaged spine.? No suspicious osseous lesions. ? ? IMPRESSION:? ? 1. Previously described ascending colon inflammatory changes have resolved.? Otherwise, no evidence for bowel obstruction or acute inflammatory changes.? The appendix appears normal. ? 2. Stable appearance of cirrhotic liver. ? 3. Stable appearance of splenomegaly with associated peripheral hypodensities which are nonspecific but may represent splenic infarctions. ? 4. Mild diffuse subcutaneous soft tissue stranding which may represent early developing anasarca. ? 5. Small hiatal hernia.? ? ? Dictated by: Ethan Chun M.D. on 10/17/2021 at 20:13 ? ? Approved by: Ethan Chun M.D. on 10/17/2021 at 20:19 ? MDM Narrative Medical decision making narrative: Multiple etiologies for patient's symptoms considered including: [Bowel obstruction versus kidney stone versus colitis versus other Patient's symptoms improved over duration of stay with above-stated therapies. Findings and discharge diagnosis discussed with patient/family followed by verbalization of understanding Return precautions discussed with patient/family whom verbalize understanding. Discharge Plan Departure Patient Disposition: Home Clinical Impression: Abdominal pain Instructions: DI for Abdominal Pain-Adult Activity Restrictions/Additional Instructions: *You have been diagnosed with [left-sided abdominal pain. Your history, physical exam, labs and CT scan are very reassuring. As we discussed there is no evidence of bowel obstruction, abscess, inflammation or other serious diagn osis that would require surgery or other specific intervention. *What to do: *Please continue to take your regular medications as directed. [ x] New medication prescriptions sent to your pharmacy: [ [facility]] [ ] New medication written as a paper prescription [ ] No new medications given *Please follow up with your primary care provider in 2-3 days, call for an appointment. Let them know you were seen in the Emergency Department and that we ask that you be seen in follow up. We will electronically transmit a record of today's note if your PCP is in our system *If you do not have a primary care provider please contact the [facility] Resource line at [phone]. They will ask some questions about your medical history and help get you set up with a doctor in the community. *Return to Emergency Department if you should have any new, worsening or concerning symptoms, such as [fever greater than 101 F, shaking chills, worsening pain, persistent vomiting or other bothersome symptoms] Prescriptions: New ondansetron 4 mg tablet,disintegrating 4 mg PO TID-QID PRN (Reason: nausea and vomiting) Qty: 10 0RF oxycodone 5 mg tablet 5 mg PO Q4-6H PRN (Reason: pain) Qty: 10 0RF No Action famotidine [Pepcid AC] 20 mg Tablet 40 mg PO BID Qty: 120 0RF Bacid 1 billion cell- 250 mg Tablet 1 ea PO TIDWM Qty: 90 0RF cefdinir 300 mg capsule 300 mg PO Q12H Qty: 20 0RF doxycycline hyclate 100 mg tablet 100 mg PO BID Qty: 20 0RF furosemide [Lasix] 20 mg tablet 20 mg PO DAILY Qty: 14 0RF potassium chloride 10 mEq tablet extended release 10 meq PO DAILY Qty: 14 0RF Referrals: Margaret Escudero ARNP [Primary Care Provider] -
--- NOTE | 2021-10-17 19:49 | DI.CT.S_ITS ---
PROCEDURE: CT ABDOMEN PELVIS W CON INDICATIONS: severe left sided pain, 07/13 TECHNIQUE: After the administration of intravenous contrast, axial sections acquired from the lung bases to the pubic symphysis. Coronal and sagittal reformats were performed. For radiation dose reduction, the following was used: automated exposure control, adjustment of mA and/or kV according to patient size. COMPARISON: [facility], CT, CT ABDOMEN PELVIS W CON, 09/21/2021, 20:58. [facility], CT, CT ABDOMEN PELVIS W CON, 01/14/2021, 15:54. FINDINGS: Image quality: Excellent. Lung bases: Unremarkable. Small hiatal hernia. Heart: No significant findings. ABDOMEN: Liver: Stable appearance of cirrhotic liver. Gallbladder: Unremarkable Biliary ducts: Unremarkable. Pancreas: Unremarkable. Spleen: Persistent splenomegaly. Redemonstration of multiple splenic hypodensities predominantly peripheral in location. These are again possibly related to splenic infarctions. Adrenal Glands: Unremarkable. Kidneys and Ureters:Kidneys are symmetric in size and enhancement, and there is no obstructive uropathy. No perinephric inflammatory changes. Ureters are normal in course and caliber. Stomach and Bowel: Stomach, small bowel loops, and colon are unremarkable. Normal appendix. Previously seen circumferential wall thickening of the ascending colon has resolved. Peritoneum: No abnormal intraperitoneal fluid. No free air. Ventral Wall: No hernias. Abdominal Nodes: No retroperitoneal or mesenteric adenopathy by size criteria. Vessels: Aorta and inferior vena cava are normal in size. PELVIS: Pelvic Organs: Unremarkable. Bladder: Urinary bladder thickness appears normal for degree of distention. No perivesicular inflammatory stranding. Pelvic Nodes: No enlarged lymph nodes. Miscellaneous: No hernias are seen. Diffuse subcutaneous soft tissue stranding possibly related to early anasarca. Bones: No acute vertebral body compression fractures. Multilevel spondylitic changes throughout the imaged spine. No suspicious osseous lesions. IMPRESSION: 1. Previously described ascending colon inflammatory changes have resolved. Otherwise, no evidence for bowel obstruction or acute inflammatory changes. The appendix appears normal. 2. Stable appearance of cirrhotic liver. 3. Stable appearance of splenomegaly with associated peripheral hypodensities which are nonspecific but may represent splenic infarctions. 4. Mild diffuse subcutaneous soft tissue stranding which may represent early developing anasarca. 5. Small hiatal hernia. Dictated by: Ethan Chun M.D. on 10/17/2021 at 20:13 Approved by: Ethan Chun M.D. on 10/17/2021 at 20:19
[2021-10-17] MEDS: HYDROMORPHONE 1 MG INJ IV (19:54)
[2021-10-17] MEDS: ONDANSETRON 4 MG/2 ML INJ IV (19:54)
[2021-10-17] MEDS: SODIUM CHLORIDE 0.9% 1,000 ML 1000 ML IV (19:55)
[2021-10-17] MEDS: PANTOPRAZOLE 40 MG VIAL IV (22:48)
[2021-10-18] MEDS: ONDANSETRON 4 MG ODT PREPACK 1 BOTTLE MISC (00:14)
[2021-10-18] MEDS: OXYCODONE/APAP 5/325 PREPACK 1 BOTTLE MISC (00:14)
[2021-10-18 00:31] VITALS: BP 126/60; PULSE 89; RESP 18; O2SAT 96
== END 2021-10-18 00:40 | disposition home or self-care (01) ==
PROVIDERS: Emergency Provider Emergency Medicine; Family Provider Nurse Practitioner Family; PCP Registered Nurse
DX: R10.12 Left upper quadrant pain (principal); F17.210 Nicotine dependence, cigarettes, uncomplicated; Z88.5 Allergy status to narcotic agent
CPT/HCPCS: 36415; 74177; 80053; 81003; 83690; 85025; 93005; 93010; 96361; 96374; 96375; 99284; C9113; J1170; J2405

== ENCOUNTER → 2021-10-30 12:03 | Outpatient (CLI) | payer OTHER, MEDICAID, SELFPAY ==
[2021-09-21 22:26] VITALS: BMI 35.8
[2021-10-30 13:38] LABS: Alanine Aminotransferase 38 IU/L (<35); Albumin 3.7 g/dL (3.5-5.0); Alkaline Phosphatase 133 U/L (38-126); Aspartate Aminotransferase 53 IU/L (14-36); Bilirubin Total 0.7 mg/dL (0.2-1.3); Blood Urea Nitrogen 10 mg/dL (7-17); Carbon Dioxide 30 mmol/L (22-32); Chloride 104 mmol/L (98-107); Cholesterol 180 mg/dL (140-199); Estimated Glomerular Filt Rate > 60.0 mL/min (>60); Globulin 3.7 g/dL (1.7-4.1); Glucose 119 mg/dL (70-100); HDL Cholesterol 61 mg/dL (40-60); HEMOLYSIS < 15 (0-50); LDL Cholesterol Calculated 106 mg/dL (<100); Potassium 3.1 mmol/L (3.4-5.1); Sodium 139 mmol/L (137-145); Total Protein 7.4 g/dL (6.3-8.2); Triglycerides 65 mg/dL (35-150)
== END ==
PROVIDERS: Family Provider Nurse Practitioner Family; PCP Registered Nurse; Referring Provider Registered Nurse; Visit Provider Registered Nurse
DX: K74.60 Unspecified cirrhosis of liver (principal); R74.8 Abnormal levels of other serum enzymes; E78.5 Hyperlipidemia, unspecified
CPT/HCPCS: 36415; 80053; 80061

== ENCOUNTER 2021-11-10 15:59 | Emergency (ER) | payer OTHER, MEDICAID, SELFPAY ==
[2021-09-21 22:26] VITALS: BMI 35.8
[2021-11-10 16:15] VITALS: BP 150/69; PULSE 94; RESP 22; TEMP 36.4; O2SAT 99
[2021-11-10] MEDS: OXYCODONE IR 5 MG TABLET PO (21:43)
[2021-11-10] MEDS: cephALEXin 250 MG CAPSULE 500 MG PO (21:43)
--- NOTE | 2021-11-10 22:49 | ED.SKABFB ---
HPI - Skin/Abscess/Foreign Bdy General Chief complaint: Skin/Abscess/Foreign Body Stated complaint: LUMP LEFT ARMPIT RBAUN HURTS GETTING BIGGER Time Seen by Provider: 11/10/21 21:32 Source: patient Mode of arrival: Ambulatory History of Present Illness HPI narrative: 51-year-old woman with history of hepatitis C that has been treated, presents with abscess developing in her left axilla. She noted that there is a pea-sized lesion there 48 hours ago that has continued to grow and this morning is large enough that she is having trouble putting her arm into a comfortable position. It has not yet begun draining. She does not describe fevers or chills. While her arms uncomfortable she is not having any neurovascular complaints down in the upper extremity. She describes no recent cough, nausea, vomiting, diarrhea. Related Data Previous Rx's Medication Instructions Recorded L.acidophilus-L.bulgar-B.bifid-S.thermoph 1 ea PO TIDWM #90 tab 09/24/21 1 billion cell-250 mg tablet (Bacid) cefdinir 300 mg capsule 300 mg PO Q12H #20 cap 09/24/21 doxycycline hyclate 100 mg tablet 100 mg PO BID #20 tab 09/24/21 famotidine 20 mg tablet (Pepcid AC) 40 mg PO BID #120 tab 09/24/21 ondansetron 4 mg disintegrating 4 mg PO TID-QID PRN #10 tab 10/18/21 tablet oxycodone 5 mg tablet 5 mg PO Q4-6H PRN #10 tab 10/18/21 furosemide 20 mg tablet (Lasix) 20 mg PO DAILY #30 tab 10/30/21 potassium chloride 10 mEq 10 meq PO DAILY #30 tab 10/30/21 tablet,extended release cephalexin 500 mg capsule 500 mg PO TID #21 cap 11/10/21 Allergies Allergy/AdvReac Type Severity Reaction Status Date / Time codeine [CODEINE] Allergy Mild Verified 10/30/21 11:23 ibuprofen [IBUPROFEN] AdvReac Mild HEADACHES Verified 10/30/21 11:23 Review of Systems Review of Systems Narrative: Remainder of complete review of systems is otherwise unremarkable except for that included in the HPI. Patient History Medical History Breast cancer screening Colon cancer screening Essential (primary) hypertension Generalized edema Heart murmur Hyperlipidemia Obesity (BMI 30.0-34.9) Palpitation Rhonchi Telangiectasia of skin UTI (urinary tract infection) Social History household members: family Smoking Status: Current every day smoker alcohol intake: never Smoking Status: Current every day smoker tobacco type: cigarettes alcohol intake frequency: holidays/special occasions only Substance Use Type: does not use Exam Initial Vital Signs Initial Vital Signs: Vital Signs Temperature 97.5 F L 11/10/21 16:15 Pulse Rate 94 H 11/10/21 16:15 Respiratory Rate 22 11/10/21 16:15 Blood Pressure 150/69 H 11/10/21 16:15 Pulse Oximetry 99 11/10/21 16:15 General: Alert appropriate in no acute distress Respiratory: Able to speak in full sentences, no obvious respiratory distress Skin: No obvious rashes, warm and dry Neurologic: Grossly intact no obvious asymmetries or abnormalities Psych: appropriate insight and affect, cooperative Extremity: She has a large abscess with surrounding 4-5 cm of cellulitis developing in the left axilla. There is a central 1 x 2 cm area of necrosis that has not yet broken open with an approximately 3 x 3 area of fluctuance underneath and induration beyond that. Procedures Abscess I/D Left axilla: Time of procedure: 22:52 Site: upper extremity Side (if applicable): left Sedation/analgesia: none Local Anesthetic: lidocaine 1% and with epi Amount of anesthesia used (mL): 5 Technique: incised with #11 blade Amount of fluid expressed (mL): 15 Irrigation: Yes Packing used?: plain Course Orders Ordered: Discontinued Medications Cephalexin HCl (Cephalexin 250 Mg Capsule) 500 mg PO NOW ONE Stop: 11/10/21 21:37 Last Admin: 11/10/21 21:43 Dose: 500 mg Documented by: MARGARITO Lidocaine/Epinephrine (Lidocaine 2% W/Epi Inj) 20 ml INJ INTRA-OP ONE Stop: 11/10/21 21:37 Oxycodone HCl (Oxycodone Ir 5 Mg Tablet) 5 mg PO NOW ONE Stop: 11/10/21 21:37 Last Admin: 11/10/21 21:43 Dose: 5 mg Documented by: [email or web address] Oxycodone/Acetaminophen (Oxycodone/Apap 5/325 Prepack) [facility] Stop: 11/10/21 22:39 Vital Signs Vital signs: Vital Signs - 8 hr 11/10/21 16:15 Temperature 97.5 F L Pulse Rate 94 H Respiratory Rate 22 Blood Pressure 150/69 H Pulse Oximetry 99 MDM - Skin/Abscess/Foreign Bdy MDM Narrative Medical decision making narrative: 51-year-old woman with a perifollicular abscess that is grown to the point that I&D was appropriate with a moderate amount of purulent material removed, culture was sent. She has significant surrounding induration without continued abscess and at least 3-5 cm of surrounding cellulitis as well. She will be started on cephalexin. Signs and symptoms of worsening infection or complications are reviewed with her in detail. Questions are answered and she is safe for home discharge Discharge Plan Departure Patient Disposition: Home Clinical Impression: Abscess Cellulitis Qualifiers: Site of cellulitis of extremity: axilla Laterality: left Instructions: DI for Cellulitis -- Adult, DI for Skin Abscess Activity Restrictions/Additional Instructions: Thank you for coming in today It looks like you had an infected hair follicle in your arm pit that turned into an abscess that has now spread to cellulitis. We were able to drain the abscess in the emergency department and that should help significantly with the pain. For the surrounding cellulitis a like you to complete a 7 day course of cephalexin, and antibiotic. There is a small amount of packing in the wound so that it does not heal over and does allow additional drainage. On Wednesday night or morning when you are in the shower, simply pull that packing out. Prescription was electronically transmitted to [facility] It is okay to work but I expect her arm will be sore for the next couple of days If you have worsening symptoms, increasing drainage or increasing pain, you need to return to the emergency room for further evaluation Prescriptions: New cephalexin 500 mg capsule 500 mg PO TID Qty: 21 0RF No Action furosemide [Lasix] 20 mg tablet 20 mg PO DAILY Qty: 30 0RF potassium chloride 10 mEq tablet extended release 10 meq PO DAILY Qty: 30 0RF famotidine [Pepcid AC] 20 mg Tablet 40 mg PO BID Qty: 120 0RF Bacid 1 billion cell- 250 mg Tablet 1 ea PO TIDWM Qty: 90 0RF cefdinir 300 mg capsule 300 mg PO Q12H Qty: 20 0RF doxycycline hyclate 100 mg tablet 100 mg PO BID Qty: 20 0RF ondansetron 4 mg tablet,disintegrating 4 mg PO TID-QID PRN (Reason: nausea and vomiting) Qty: 10 0RF oxycodone 5 mg tablet 5 mg PO Q4-6H PRN (Reason: pain) Qty: 10 0RF Referrals: Margaret Escudero ARNP [Primary Care Provider] -
[2021-11-10] MEDS: OXYCODONE/APAP 5/325 PREPACK 1 BOTTLE MISC (22:50)
[2021-11-10 22:58] VITALS: PULSE 77; RESP 14; O2SAT 98
== END 2021-11-10 22:59 | disposition home or self-care (01) ==
PROVIDERS: Emergency Provider Emergency Medicine; Family Provider Nurse Practitioner Family; PCP Registered Nurse
DX: L03.112 Cellulitis of left axilla (principal); L02.412 Cutaneous abscess of left axilla; B95.62 Methicillin resistant Staphylococcus aureus infection as the cause of diseases classified elsewhere
CPT/HCPCS: 10060; 87070; 87075; 87077; 87147; 87186; 87205; 99283

== ENCOUNTER → 2022-12-24 12:10 | Outpatient (CLI) | payer OTHER, MEDICAID, SELFPAY ==
[2021-09-21 22:26] VITALS: BMI 35.8
--- NOTE | 2022-12-24 12:13 | DI.RAD.S_ITS ---
PROCEDURE: XR CHEST 2V INDICATIONS: Eval and Treat TECHNIQUE: 2 views of the chest were acquired. COMPARISON: [facility], CR, XR CHEST 1V, 09/29/2021, 20:33. [facility], CR, XR CHEST 1V, 09/21/2021, 20:17. FINDINGS: Surgical changes and devices: None. Lungs and pleura: Lungs are clear. No pleural effusions or pneumothorax. Mediastinum: Mediastinal contours are normal. Heart size is normal. Bones and chest wall: No suspicious bony abnormalities. Soft tissues appear unremarkable. IMPRESSION: No acute cardiopulmonary process. Dictated by: Chun Irving M.D. on 12/24/2022 at 14:59 Approved by: Chun Irving M.D. on 12/24/2022 at 14:59
[2022-12-24 12:45] LABS: Add Manual Diff / Slide Review NO; Basophils Absolute Auto 0 /uL (0-100); Basophils Percent Auto 0.8 % (0-2); Eosinophils Absolute Auto 100 /uL (0-450); Eosinophils Percent Auto 1.3 % (2-4); Hematocrit 36.8 % (36-46); Hemoglobin 12.1 g/dL (12.0-16.0); Lymphocytes Absolute Auto 2400 /uL (1100-4500); Lymphocytes Percent Auto 44.5 % (25-40); Mean Corpuscular HGB Conc 32.8 % (30-36); Mean Corpuscular Hemoglobin 27.5 PG (26-34); Mean Corpuscular Volume 83.9 fL (80-100); Monocytes Absolute Auto 400 /uL (0-900); Monocytes Percent Auto 7.5 % (3-14); Neutrophils Absolute Auto 2500 /uL (1500-7000); Neutrophils Percent Auto 45.9 % (50-75); Platelet Count 99 X10^3/uL (150-400); Red Blood Cell Count 4.39 X10^6/uL (4.0-5.2); Red Cell Distribution Width 16.8 % (11.6-14.8); White Blood Cell Count 5.4 X10^3/uL (4.5-11.0)
[2022-12-24 13:05] LABS: Alanine Aminotransferase 70 IU/L (<35); Albumin 3.8 g/dL (3.5-5.0); Alkaline Phosphatase 142 U/L (38-126); Aspartate Aminotransferase 73 IU/L (14-36); BUN Creatinine Ratio 19.1 (6-22); Bilirubin Total 0.8 mg/dL (0.2-1.3); Blood Urea Nitrogen 9 mg/dL (7-17); Calcium 8.6 mg/dL (8.4-10.2); Carbon Dioxide 30 mmol/L (22-32); Chloride 105 mmol/L (98-107); Cholesterol 207 mg/dL (140-199); Estimated Glomerular Filt Rate > 60 mL/min (>60); Glucose 71 mg/dL (70-100); HDL Cholesterol 68 mg/dL (40-60); HEMOLYSIS < 15 (0-50); LDL Cholesterol Calculated 127 mg/dL (<100); Sodium 141 mmol/L (137-145); Total Protein 7.8 g/dL (6.3-8.2); Triglycerides 62 mg/dL (35-150)
[2022-12-24 13:10] LABS: Ammonia (NH3) 97 umol/L (9-30); HEMOLYSIS 28 (0-50); Iron 70 ug/dL (37-170)
[2022-12-24 13:21] LABS: Percent Iron Saturation 12 % (15-50); Total Iron Binding Capacity 603 ug/dL (265-497); Transferrin 462 mg/dL (206-381)
[2022-12-24 13:37] LABS: TSH w/ Reflex to FT4 1.77 uIU/mL (0.47-4.68)
[2022-12-24 13:38] LABS: Ferritin 9 ng/mL (11-264)
[2022-12-24 13:52] LABS: Vitamin B12 779 pg/mL (239-931)
[2022-12-24 17:07] LABS: Hep C Virus Ab w/Reflex Quant REACTIVE s/c (NEGATIVE)
== END ==
LOC: LAB 12:11 → RAD 12:13
PROVIDERS: Family Provider Nurse Practitioner Family; PCP Family Medicine; Referring Provider Family Medicine; Visit Provider Family Medicine
DX: T73.3XXA Exhaustion due to excessive exertion, initial encounter (principal); B19.20 Unspecified viral hepatitis C without hepatic coma; D64.9 Anemia, unspecified; I10 Essential (primary) hypertension; J44.9 Chronic obstructive pulmonary disease, unspecified; K74.60 Unspecified cirrhosis of liver; R60.1 Generalized edema
CPT/HCPCS: 36415; 71046; 80053; 80061; 82140; 82607; 82728; 83540; 83550; 84443; 85025; 86803; 87522

== ENCOUNTER 2023-02-01 10:26 | Day surgery (SDC) | payer OTHER, MEDICAID, SELFPAY ==
[2021-09-21 22:26] VITALS: BMI 35.8
[2023-02-01] MEDS: LACTATED RINGERS 1,000 ML 100 ML IV (10:42)
[2023-02-01 10:52] VITALS: BP 126/82; PULSE 71; RESP 16; TEMP 36.5; O2SAT 97; BMI 38.7
[2023-02-01 11:11] VITALS: BMI 38.7
--- NOTE | 2023-02-01 11:32 | PM.HP.1 ---
History of Present Illness History of Present Illness Date Patient Seen: 02/01/23 Time Patient Seen: 11:32 Chief complaint: SDC Narrative: I reviewed the recent office note. No significant changes. No recent bleeding symptoms. She has reflux but symptoms are relieved with anti-reflux medication. [facility] Medical History Abdominal ascites Breast cancer screening Colon cancer screening COPD (chronic obstructive pulmonary disease) Dysuria Essential (primary) hypertension Generalized edema Heart murmur Hyperlipidemia Obesity (BMI 30.0-34.9) Palpitation Rhonchi Telangiectasia of skin UTI (urinary tract infection) Social History household members: family Smoking Status: Current every day smoker alcohol intake: never Meds Home Medications and Allergies Home Medications Medication Instructions Recorded Confirmed Type albuterol sulfate 90 mcg/actuation 2 puff inhalation Q6H PRN 12/24/22 02/01/23 Rx aerosol inhaler shortness of breath or wheezing #8.5 grams furosemide 20 mg tablet (Lasix) 20 mg PO DAILY #90 tabs 12/24/22 02/01/23 Rx nadolol 20 mg tablet 20 mg PO DAILY #90 tabs 12/24/22 02/01/23 Rx potassium chloride 10 mEq 10 meq PO DAILY #90 tabs 12/24/22 02/01/23 Rx tablet,extended release acetaminophen 500 mg tablet 1,000 mg PO DAILY 02/01/23 02/01/23 History ascorbic acid and sodium 120 120 frieda PO DAILY 02/01/23 02/01/23 History mg-zinc oxide,gluconate 20 mg lozenges multivit,stress formula-zinc tablet 1 tab PO DAILY 02/01/23 02/01/23 History vitamin B complex 1 tab PO DAILY 02/01/23 02/01/23 History Allergies Allergy/AdvReac Type Severity Reaction Status Date / Time codeine [CODEINE] Allergy Mild Verified 02/01/23 10:40 ibuprofen [IBUPROFEN] AdvReac Mild HEADACHES Verified 02/01/23 10:40 Review of Systems Review of Systems ROS: Yes All systems reviewed with the patient and are negative except as otherwise documented Exam Vital Signs (past 8 hours): - 02/01/23 10:52 Temperature 97.7 F Pulse Rate 71 Respiratory Rate 16 Blood Pressure 126/82 Pulse Oximetry 97 Oxygen Delivery Method Room Air Oxygen Delivery Method Room Air Const General: cooperative HENMT Head: normal to inspection Eyes General: appearance normal, both eyes and all related structures Neck Neck: normal visual inspection Chest Chest: normal inspection of the chest Resp Effort & Inspection: normal respiratory effort Cardio Rate: regular rate GI Inspection: normal to inspection Skin General: no rashes or lesions noted Neuro General: patient alert and patient awake Extrem General: normal to inspection and no pedal edema Psych Appearance: grossly normal Assessment & Plan Assessment & Plan narrative: 52-year-old female with cirrhosis varices. Surveillance EGD is pursued today.
--- NOTE | 2023-02-01 11:34 | PM.PREOP ---
Pre-operative Note Interval Note History & Physical reviewed/Exam performed by Physician: Yes Changes to H&P: No ASA Class (for procedural sedation): III
--- NOTE | 2023-02-01 12:22 | PM.OP.EGD ---
Operative Date/Time/Diagnoses Date of procedure: 02/01/23 Time of procedure: 12:22 Pre-op diagnosis: Esophageal varices Post-op diagnosis: same Procedure & Clinicians Study performed: EGD Same procedure as scheduled: Yes Indications: Esophageal varices Surgeon: Ankur Chavez Procedure Notes SCOAP/Timeout: Done Procedure in detail: After the risks and benefits were explained, written and verbal informed consent was obtained. The patient was brought into the procedure room and placed into the left lateral decubitus position. Please see anesthesia notes for sedation details. The scope was introduced into the mouth through the bite block and advanced under direct visualization to the 2nd portion of the duodenum. The scope was slowly withdrawn carefully examining the mucosa for any defects or lesions. Retroflexed views were accomplished in the stomach. The stomach was decompressed, the scope was then removed from the patient who tolerated the procedure well. Specimen(s): none sent Complications: none Impression: 1. Duodenum: This was visually normal from the bulb through the 2nd portion. 2. Stomach: No outlet obstruction no mass lesions. No evidence of gastric varices including retroflexed views of the LES. In the mid gastric body there was evidence of retained plaque-like debris measuring out to approximately 15-18 mm in greatest dimension.. This was white and blue in color suggesting the recent dissolution of a pill or tablet. Underlying this area the mucosa was at the very least friable and irritated. I did not appreciate any polypoid structure nor any mass effect. There did not seem to be any obvious excavated ulceration. This was photographed. Otherwise portal gastropathy was noted throughout. 3. Esophagus: The squamocolumnar junction correlated with the top of gastric folds. GEJ was at 35 cm from the incisors. The patient had evidence of at least medium-sized distal esophageal varices that did not fully flatten out with air insufflation. Please see photographs. I did not appreciate any high-risk stigmata of recent bleeding nor any red Yves signs. Endoscopic diagnosis 1. Portal gastropathy 2. Focal gastric friability-suspect gastritis from recent pill ingestion 3. Medium sized esophageal varices without stigmata Post-procedure Plan for aftercare: 1. Continue nadolol. However I recommend increasing the dose to 40 mg daily. 2. Follow up EGD is recommended for approximately 12 weeks to confirm healing of the gastric body mucosa. Disposition: PACU
[2023-02-01 12:25] VITALS: BP 126/70; PULSE 20; RESP 20; TEMP 36.5; O2SAT 95
[2023-02-01 12:29] VITALS: BP 120/74; PULSE 74; RESP 16; O2SAT 93
[2023-02-01 12:34] VITALS: BP 133/76; PULSE 73; RESP 18; O2SAT 94
[2023-02-01 12:43] VITALS: BP 124/64; PULSE 68; RESP 16; TEMP 36.4; O2SAT 93
== END 2023-02-01 12:57 | disposition home or self-care (01) ==
PROVIDERS: Family Provider Nurse Practitioner Family; PCP Family Medicine; Referring Provider Internal Medicine Gastroenterology; Visit Provider Internal Medicine Gastroenterology
PROC: 0DJ08ZZ Inspection of Upper Intestinal Tract, Via Natural or Artificial Opening Endoscopic (ICD-10-PCS; CPT 43235; principal; 2023-02-01 11:30)
DX: I85.00 Esophageal varices without bleeding (principal); K76.6 Portal hypertension; K31.89 Other diseases of stomach and duodenum; R18.8 Other ascites; R74.8 Abnormal levels of other serum enzymes; R79.89 Other specified abnormal findings of blood chemistry; K74.60 Unspecified cirrhosis of liver
CPT/HCPCS: 43235; 36415; 80076; 82105; 82140; J2704

== ENCOUNTER → 2023-02-01 13:04 | Outpatient (CLI) | payer OTHER, MEDICAID, SELFPAY ==
[2021-09-21 22:26] VITALS: BMI 35.8
[2023-02-01 14:31] LABS: Ammonia (NH3) 31 umol/L (9-30)
[2023-02-01 14:44] LABS: Alanine Aminotransferase 83 IU/L (<35); Albumin 3.6 g/dL (3.5-5.0); Albumin Globulin Ratio 1.1 (1.0-2.8); Alkaline Phosphatase 126 U/L (38-126); Aspartate Aminotransferase 71 IU/L (14-36); Bilirubin Total 1.2 mg/dL (0.2-1.3); Bilirubin Unconjugated 0.9 mg/dL (0.0-1.1); Globulin 3.2 g/dL (1.7-4.1); HEMOLYSIS < 15 (0-50); Total Protein 6.8 g/dL (6.3-8.2)
[2023-02-02 16:23] LABS: Alpha Fetoprotein 5.8 ng/mL (0.0-9.2)
== END ==
PROVIDERS: Family Provider Nurse Practitioner Family; PCP Family Medicine; Referring Provider Physician Assistant; Visit Provider Physician Assistant
DX: I85.00 Esophageal varices without bleeding (principal); R18.8 Other ascites; R74.8 Abnormal levels of other serum enzymes; R79.89 Other specified abnormal findings of blood chemistry; K74.60 Unspecified cirrhosis of liver
CPT/HCPCS: 36415; 80076; 82105; 82140

== ENCOUNTER 2023-05-03 10:29 | Day surgery (SDC) | payer OTHER, MEDICAID, SELFPAY ==
[2021-09-21 22:26] VITALS: BMI 35.8
[2023-05-03] VITALS (8 sets, daily range): BP systolic 89–122; BP diastolic 51–83; PULSE 57–76; RESP 12–25; TEMP 36.1–36.8; O2SAT 95–98; BMI 27.4
--- NOTE | 2023-05-03 | PATH_ITS ---
[facility] Accession Number: [id number] No. of containers..01 Tissue . 01 Material submitted: . gastrointestinal site - ANTRUM BIOPSY . 01 Diagnosis: Gastric Antrum, Biopsy: Gastric antral mucosa with features of iron pill gastritis. Negative for Helicobacter organisms by immunohistochemistry. Negative for intestinal metaplasia. Negative for dysplasia or malignancy. MRV 05/11/2023 1322 Local . 01 Electronically signed: . Jayden Ng MD, PhD, Pathologist NPI- [id number] . 01 Gross description: . ANTRUM BIOPSY: Received in formalin is 1 fragment(s) of bravo, soft tissue measuring 0.1 x 0.1 x 0.1 cm submitted entirely in 1 cassette(s) /KARLENE 05/06/2023 0020 Local . 01 Microscopic: . An immunohistochemical stain was performed to evaluate for Helicobacter organisms and is negative. The control stain showed appropriate reactivity. . * This test was developed and its performance characteristics determined by [facility]. It has not been cleared or approved by the U.S. Food and Drug Administration. The FDA has determined that such clearance or approval is not necessary. This test is used for clinical purposes. It should not be regarded as investigational or for research. . 01 Pathologist provided ICD-10: K29.70 . 01 CPT . 834217, S62721 Specimen Comment: A courtesy copy of this report has been sent to [phone] Performed at: 01 [facility] [address] [place] [address], [place], [place] [id number] MD Estuardo Rhoades MD Phone: [phone]
[2023-05-03] MEDS: LACTATED RINGERS 1,000 ML 42 ML IV (11:16)
--- NOTE | 2023-05-03 11:32 | PM.HP.1 ---
History of Present Illness History of Present Illness Date Patient Seen: 05/03/23 Time Patient Seen: 11:32 Chief complaint: SDC Narrative: Here today for surveillance EGD. Had a focal area of gastropathy that necessitates follow-up. She is tolerated the increased dose of nadolol. PFSH Medical History Abdominal ascites Breast cancer screening Colon cancer screening COPD (chronic obstructive pulmonary disease) Dysuria Esophageal varices Essential (primary) hypertension Generalized edema Heart murmur Hyperlipidemia Obesity (BMI 30.0-34.9) Palpitation Rhonchi Telangiectasia of skin UTI (urinary tract infection) Social History household members: family Smoking Status: Current every day smoker alcohol intake: never Meds Home Medications and Allergies Home Medications Medication Instructions Recorded Confirmed Type albuterol sulfate 90 mcg/actuation 2 puff inhalation Q6H PRN 12/24/22 05/03/23 Rx aerosol inhaler shortness of breath or wheezing #8.5 grams furosemide 20 mg tablet (Lasix) 20 mg PO DAILY #90 tabs 12/24/22 05/03/23 Rx potassium chloride 10 mEq 10 meq PO DAILY #90 tabs 12/24/22 05/03/23 Rx tablet,extended release vitamin B complex 1 tab PO DAILY 02/01/23 05/03/23 History nadolol 20 mg tablet 20 mg PO BID #180 tabs 02/23/23 05/03/23 Rx ferrous sulfate 325 mg (65 mg 325 mg PO DAILY 05/03/23 05/03/23 History iron) tablet (Iron (ferrous sulfate)) lactulose 10 gram/15 mL oral 05/03/23 History solution Allergies Allergy/AdvReac Type Severity Reaction Status Date / Time codeine [CODEINE] Allergy Mild Verified 05/03/23 10:46 ibuprofen [IBUPROFEN] AdvReac Mild HEADACHES Verified 05/03/23 10:46 Review of Systems Review of Systems ROS: Yes All systems reviewed with the patient and are negative except as otherwise documented Exam Vital Signs (past 8 hours): - 05/03/23 10:56 Temperature 97.6 F Pulse Rate 57 L Respiratory Rate 17 Blood Pressure 122/83 Pulse Oximetry 97 Oxygen Delivery Method Room Air Oxygen Delivery Method Room Air Const General: cooperative HENMT Head: normal to inspection Eyes General: appearance normal, both eyes and all related structures Neck Neck: normal visual inspection Chest Chest: normal inspection of the chest Resp Effort & Inspection: normal respiratory effort Cardio Rate: regular rate GI Inspection: normal to inspection Skin General: no rashes or lesions noted Neuro General: patient alert and patient awake Extrem General: normal to inspection and no pedal edema Psych Appearance: grossly normal Assessment & Plan Assessment & Plan narrative: 53-year-old female with cirrhosis and portal hypertension. She had a focal gastropathy that that I suspect may be from pill induced injury in the stomach. Follow-up EGD is pursued today to re-evaluate that area.
--- NOTE | 2023-05-03 12:14 | PM.OP.EGD ---
Operative Date/Time/Diagnoses Date of procedure: 05/03/23 Time of procedure: 12:14 Pre-op diagnosis: Cirrhosis with portal hypertension and varices plus focal erosive gastropathy Post-op diagnosis: same Procedure & Clinicians Study performed: EGD with biopsy Same procedure as scheduled: Yes Indications: Cirrhosis with portal hypertension and varices plus focal erosive gastropathy Surgeon: Ankur Chavez Procedure Notes SCOAP/Timeout: Done Procedure in detail: After the risks and benefits were explained, written and verbal informed consent was obtained. The patient was brought into the procedure room and placed into the left lateral decubitus position. Please see anesthesia note for sedation details. The scope was introduced into the mouth through the bite block and advanced under direct visualization to the 2nd portion of the duodenum. The scope was slowly withdrawn carefully examining the mucosa for any defects or lesions. Retroflexed views were accomplished in the stomach. The stomach was decompressed, the scope was then removed from the patient who tolerated the procedure well. Sedation minutes: 8 Complications: none Impression: 1. Duodenum: No pathology appreciated throughout 2. Stomach: Portal gastropathy was again encountered. No gastric varices. Once again an area of focal eroded gastropathy was noted at about the border between antrum and gastric body. This did not have any masslike features. There was some adherent debris and with irrigation the debris with slough off but demonstrated that the underlying mucosa was quite friable. I elected to therefore take a very small bite for exclusion of H pylori or other histopathology. 3. Esophagus: The GE junction was at about 36 cm from the incisors. No acute erosive changes no strictures no mass lesions. The patient had medium-sized varices once again but no stigmata of recent bleeding and no high-risk features. Endoscopic diagnosis 1. Focal erosive gastropathy 2. Portal hypertensive gastropathy 3. Medium-sized esophageal varices Post-procedure Plan for aftercare: 1. Await histopathology. 2. If Helicobacter is found it will need to be eradicated with standard triple therapy. 3. Continue 40 mg nadolol daily. 4. Follow up in GI clinic with Rajiv Shea to ensure no further dose adjustments are required. (Today her resting pulse pre sedation was in the mid 60s with a systolic pressure in the 110s). Disposition: PACU
== END 2023-05-03 13:16 | disposition home or self-care (01) ==
PROVIDERS: Family Provider Nurse Practitioner Family; PCP Family Medicine; Referring Provider Internal Medicine Gastroenterology; Visit Provider Internal Medicine Gastroenterology
PROC: 0DJ08ZZ Inspection of Upper Intestinal Tract, Via Natural or Artificial Opening Endoscopic (ICD-10-PCS; CPT 43235; principal; 2023-05-03 11:30)
DX: I85.10 Secondary esophageal varices without bleeding (principal); K74.60 Unspecified cirrhosis of liver; K76.6 Portal hypertension; K31.89 Other diseases of stomach and duodenum; K29.60 Other gastritis without bleeding
CPT/HCPCS: 43239; J2704

== ENCOUNTER → 2023-06-22 11:57 | Outpatient (CLI) | payer OTHER, MEDICAID, SELFPAY ==
[2021-09-21 22:26] VITALS: BMI 35.8
[2023-06-22 12:57] LABS: Appearance Urine UA CLEAR; Bilirubin Urine UA NEGATIVE (NEGATIVE); Color Urine UA YELLOW; Glucose Urine UA NEGATIVE (Negative); Ketones Urine UA NEGATIVE (NEGATIVE); Leukocyte Esterase Urine UA NEGATIVE (NEGATIVE); Nitrite Urine UA POSITIVE (Negative); Occult Blood Urine UA NEGATIVE (Negative); Protein Urine UA NEGATIVE (Negative); Specific Gravity Urine UA 1.015 (1.000-1.035)
[2023-06-22 12:58] LABS: pH Urine UA 6.5 (4.5-8.0)
[2023-06-22 13:03] LABS: Bacteria Urine Many (>30); Culture Indicated Urine Specimen Cultured; RBC Urine None Seen (0-5/HPF); Squamous Epithelial Cell Urine 0-1 /HPF (0-5/HPF); WBC Urine 1-5/HPF (0-5/HPF)
== END ==
PROVIDERS: Family Provider Nurse Practitioner Family; PCP Family Medicine; Visit Provider Family Medicine
DX: R30.0 Dysuria (principal)
CPT/HCPCS: 81001; 87086

== ENCOUNTER → 2023-06-22 12:35 | Outpatient (CLI) | payer OTHER, MEDICAID, SELFPAY ==
[2021-09-21 22:26] VITALS: BMI 35.8
[2023-06-22 13:03] LABS: Add Manual Diff / Slide Review NO; Basophils Absolute Auto 0 /uL (0-100); Basophils Percent Auto 0.4 % (0-2); Eosinophils Absolute Auto 0 /uL (0-450); Eosinophils Percent Auto 0.9 % (2-4); Hematocrit 40.3 % (36-46); Hemoglobin 13.8 g/dL (12.0-16.0); Lymphocytes Absolute Auto 1900 /uL (1100-4500); Lymphocytes Percent Auto 39.8 % (25-40); Mean Corpuscular HGB Conc 34.2 % (30-36); Mean Corpuscular Hemoglobin 33.1 PG (26-34); Mean Corpuscular Volume 96.8 fL (80-100); Monocytes Absolute Auto 300 /uL (0-900); Monocytes Percent Auto 6.9 % (3-14); Neutrophils Absolute Auto 2400 /uL (1500-7000); Platelet Count 76 X10^3/uL (150-400); Red Blood Cell Count 4.16 X10^6/uL (4.0-5.2); Red Cell Distribution Width 13.5 % (11.6-14.8); White Blood Cell Count 4.7 X10^3/uL (4.5-11.0)
[2023-06-22 13:10] LABS: INR 1.1 (0.9-1.3); Prothrombin Time 12.3 SECONDS (10.1-12.7)
[2023-06-22 13:14] LABS: Ammonia (NH3) 82 umol/L (9-30)
[2023-06-22 13:15] LABS: Alanine Aminotransferase 74 IU/L (<35); Albumin 3.9 g/dL (3.5-5.0); Albumin Globulin Ratio 1.1 (1.0-2.8); Alkaline Phosphatase 106 U/L (38-126); Aspartate Aminotransferase 64 IU/L (14-36); BUN Creatinine Ratio 23.1 (6-22); Bilirubin Total 1.2 mg/dL (0.2-1.3); Blood Urea Nitrogen 12 mg/dL (7-17); Calcium 9.6 mg/dL (8.4-10.2); Carbon Dioxide 26 mmol/L (22-32); Chloride 105 mmol/L (98-107); Estimated Glomerular Filt Rate > 60 mL/min (>60); Globulin 3.4 g/dL (1.7-4.1); Glucose 77 mg/dL (70-100); HEMOLYSIS < 15 (0-50); Potassium 4.1 mmol/L (3.4-5.1); Sodium 138 mmol/L (137-145); Total Protein 7.3 g/dL (6.3-8.2)
[2023-06-22 13:17] LABS: Alanine Aminotransferase 74 IU/L (<35); Albumin 3.9 g/dL (3.5-5.0); Albumin Globulin Ratio 1.1 (1.0-2.8); Alkaline Phosphatase 105 U/L (38-126); Aspartate Aminotransferase 65 IU/L (14-36); Bilirubin Total 1.2 mg/dL (0.2-1.3); Blood Urea Nitrogen 12 mg/dL (7-17); Calcium 9.4 mg/dL (8.4-10.2); Carbon Dioxide 27 mmol/L (22-32); Chloride 106 mmol/L (98-107); Estimated Glomerular Filt Rate > 60 mL/min (>60); Globulin 3.5 g/dL (1.7-4.1); Glucose 77 mg/dL (70-100); HEMOLYSIS < 15 (0-50); Sodium 137 mmol/L (137-145); Total Protein 7.4 g/dL (6.3-8.2)
[2023-06-22 13:26] LABS: HEMOLYSIS 18 (0-50); Iron 210 ug/dL (37-170)
[2023-06-22 13:37] LABS: Percent Iron Saturation 51 % (15-50); Total Iron Binding Capacity 411 ug/dL (265-497); Transferrin 317 mg/dL (206-381)
[2023-06-22 13:50] LABS: Ferritin 57 ng/mL (11-264)
[2023-06-22 13:58] LABS: TSH w/ Reflex to FT4 1.36 uIU/mL (0.47-4.68)
[2023-06-22 14:04] LABS: Vitamin B12 865 pg/mL (239-931)
[2023-06-23 06:36] LABS: Alpha Fetoprotein 7.1 ng/mL (0.0-9.2)
== END ==
PROVIDERS: Family Provider Nurse Practitioner Family; PCP Family Medicine; Referring Provider Physician Assistant; Visit Provider Physician Assistant
DX: R18.8 Other ascites (principal); R74.8 Abnormal levels of other serum enzymes; R79.89 Other specified abnormal findings of blood chemistry; E66.9 Obesity, unspecified; D64.9 Anemia, unspecified; I85.00 Esophageal varices without bleeding; K74.60 Unspecified cirrhosis of liver; R30.0 Dysuria; Z86.19 Personal history of other infectious and parasitic diseases
CPT/HCPCS: 36415; 80053; 81001; 81002; 82105; 82140; 82607; 82728; 83540; 83550; 84443; 85025; 85610; 87077; 87086; 87147; 87186

== ENCOUNTER 2023-10-04 19:54 | Emergency (ER) | payer SELFPAY ==
[2021-09-21 22:26] VITALS: BMI 35.8
[2023-10-04 19:57] VITALS: BP 167/81; PULSE 75; RESP 18; TEMP 36.9; O2SAT 96; BMI 25.8
--- NOTE | 2023-10-04 20:04 | DI.RAD.S_ITS ---
PROCEDURE: XR CHEST 2V INDICATIONS: cough, hx of copd TECHNIQUE: 2 views of the chest were acquired. COMPARISON: None. FINDINGS: Surgical changes and devices: None. Lungs and pleura: Lungs are clear. No pleural effusions or pneumothorax. Mediastinum: Mediastinal contours are normal. Heart size is normal. Bones and chest wall: No suspicious bony abnormalities. Soft tissues appear unremarkable. IMPRESSION: No acute cardiopulmonary abnormality is seen. Dictated by: Ezequiel Mccarty M.D. on 10/04/2023 at 20:27 Approved by: Ezequiel Mccarty M.D. on 10/04/2023 at 20:27
[2023-10-04 23:18] VITALS: BP 167/76; PULSE 77; RESP 22; TEMP 36.6; O2SAT 94
--- NOTE | 2023-10-04 23:37 | ED.GENADULT ---
HPI - General Adult General Chief complaint: Upper Respiratory Symptoms Stated complaint: RESP INFECT/ SOB/ headache Time Seen by Provider: 10/04/23 23:26 Source: patient Mode of arrival: Ambulatory History of Present Illness HPI narrative: 53-year-old woman with a history of cirrhosis, esophageal varices, COPD, hypertension, hyperlipidemia who presents complaining of 2 weeks of upper respiratory symptoms that are progressively getting worse. She notes that initially she had some sinus fullness, a cough and describes no wheezing. Over the last couple of days she is noticing dramatic increase in pain in her ears, sinus fullness with increased nasal discharge, increased wheezing shortness and breath and discomfort with deep breathing more on the left side than the right side. She is not complaining specifically of chest pain or palpitations. No abdominal pain, nausea, vomiting, dysuria or flank pain Related Data Home Medications Medication Instructions Recorded Confirmed ferrous sulfate 325 mg (65 mg 325 mg PO DAILY 05/03/23 06/22/23 iron) tablet (Iron (ferrous sulfate)) lactulose 10 gram/15 mL oral 05/03/23 06/22/23 solution [id number]-mjgyqkor-vjay tab PO 06/22/23 06/22/23 fumarate 18 mg-folic acid 400 mcg tablet (One-A-Day Women's Complete) Previous Rx's Medication Instructions Recorded albuterol sulfate 90 mcg/actuation 2 puff inhalation Q6H PRN 12/24/22 aerosol inhaler shortness of breath or wheezing #8.5 grams nadolol 20 mg tablet 20 mg PO BID #180 tabs 02/23/23 furosemide 20 mg tablet (Lasix) 20 mg PO DAILY #90 tabs 06/22/23 naphazoline 0.025 %-pheniramine 2 drp EYE-BOTH BID PRN eye 06/22/23 0.3 % eye drops (Naphcon-A) irritation #10 mL potassium chloride 10 mEq 10 meq PO DAILY #90 tabs 06/22/23 tablet,extended release meloxicam 15 mg tablet 15 mg PO DAILY #30 tabs 09/06/23 albuterol sulfate 90 mcg/actuation 2 puff inhalation Q6H PRN 10/04/23 aerosol inhaler shortness of breath or wheezing #8.5 grams doxycycline hyclate 100 mg capsule 100 mg PO BID #20 caps 10/04/23 prednisone 20 mg tablet 40 mg (2 x 20 mg) PO DAILY #10 tabs 10/04/23 Allergies Allergy/AdvReac Type Severity Reaction Status Date / Time acetaminophen [From Tylenol] Allergy Cirrhosis Verified 10/04/23 19:57 codeine [CODEINE] AdvReac Mild Headache Verified 10/04/23 19:57 ibuprofen [IBUPROFEN] AdvReac Mild Vomiting Verified 10/04/23 19:57 Review of Systems Review of Systems Narrative: Pertinent positive and negative findings as per HPI Patient History Medical History Esophageal varices Abdominal ascites Dysuria COPD (chronic obstructive pulmonary disease) UTI (urinary tract infection) Rhonchi Heart murmur Palpitation Hyperlipidemia Telangiectasia of skin Breast cancer screening Generalized edema Colon cancer screening Obesity (BMI 30.0-34.9) Essential (primary) hypertension Social History household members: family Smoking Status: Current every day smoker alcohol intake: never Smoking Status: Current every day smoker tobacco type: cigarettes alcohol intake frequency: holidays/special occasions only Substance Use Type: does not use Exam Initial Vital Signs Initial Vital Signs: Vital Signs Temperature 98.4 F 10/04/23 19:57 Pulse Rate 75 10/04/23 19:57 Respiratory Rate 18 10/04/23 19:57 Blood Pressure 167/81 H 10/04/23 19:57 Pulse Oximetry 96 10/04/23 19:57 Oxygen Delivery Method Room Air 10/04/23 19:57 General: Appears to not feel well but in no acute distress. Able to give a complete and coherent history. Well-nourished well-developed HEENT: Moist mucous membranes, normal sclera with reactive pupils, quite stuffy, bilateral tympanic membranes are red and bulging, significant anterior cervical adenopathy, no significant pharyngeal erythema Respiratory: Lungs with diffuse wheeze in all lung tobias and rhonchi developing in the left base. Cardiac: Regular rate and rhythm no murmurs no bruits Abdomen: Soft, nontender, good bowel tones, no flank pain Skin: Warm and dry, no rashes Neurologic: Grossly neurologically intact with no obvious asymmetries or abnormalities Extremities: No trauma, well perfused Psych: Cooperative, appropriate insight and affect Course Orders Ordered: ED Orders 10/04/23 20:04 XR chest 2V Stat Vital Signs Vital signs: Vital Signs - 8 hr 10/04/23 19:57 10/04/23 23:18 Temperature 98.4 F 97.9 F Pulse Rate 75 77 Respiratory Rate 18 22 Blood Pressure 167/81 H 167/76 H Pulse Oximetry 96 94 Oxygen Delivery Method Room Air Room Air Medical Decision Making MDM Narrative Medical decision making narrative: CC: Cough, ear pain, head fullness Complicating co-morbidities: Cirrhosis with known varices, COPD Data collected from: patient Medical records reviewed: Primary care visit from June is reviewed Differential considered: Viral syndrome, bacterial pneumonia, pharyngitis, otitis media, COPD exacerbation Exam documented above, pertinent findings include: She is able to speak in full sentences but has significant wheeze in all lung tobias, rhonchi into left base and bilateral otitis media. Imaging studies independently reviewed: Chest x-ray shows no significant infiltrates Treatments: DuoNeb, oral steroids, initial dose of doxycycline Discussion: 53-year-old woman presents with worsening symptoms 2 weeks after initial upper respiratory infection. Clinical exam shows bilateral otitis, significant wheeze concerning for acute COPD exacerbation and rhonchi in the left base consistent with the clinical bacterial pneumonia. Her albuterol is refilled and she is given a spacer with instruction in the emergency department. She is started on prednisone and doxycycline from the emergency department. Discussed all of her diagnoses, anticipated recovery and reasons to return to the emergency department. At this point there is no evidence of sepsis, acute coronary syndrome, pneumothorax or alternate diagnosis that would require further workup or additional imaging at this time. She is safe for discharge Discharge Plan Departure Patient Disposition: Home Clinical Impression: Acute exacerbation of chronic obstructive pulmonary disease, Bilateral acute otitis media Left lower lobe pneumonia Qualifiers: Pneumonia type: due to unspecified organism Qualified Code(s): J18.9 - Pneumonia, unspecified organism Instructions: DI for Chronic Obstructive Pulmonary Disease, DI for Pneumonia -- Adult Activity Restrictions/Additional Instructions: Thank you for coming in today I am sorry that you are feeling so poorly. You do have a number of issues going on You are wheezing and that is consistent with an acute COPD exacerbation. I am going to have you complete 5 days of steroids. I have given you a spacer and will also refill your albuterol inhaler. I would suggest 2 puffs of albuterol with a spacer every 6 hours until you are feeling significantly better You have rhonchi in your left lower lung tobias suggesting your developing a pneumonia. I am going to place you on doxycycline for 10 days. Finally, you have ear infections in both ears. The antibiotic were using for the pneumonia will help with that as well You can continue using your Mucinex DM for your cough. I suspect the steroids in the inhaler will help significantly with the cough as well. Using 400 mg of ibuprofen (2 krsh-dll-hbxrrkf pills) and 1 Tylenol every 6 hours can be very helpful in controlling pain. All prescriptions have been electronically transmitted to [facility] in [place] If you find that you are getting worse or develop any new symptoms, please feel free to return to the emergency department for further evaluation. Prescriptions: New doxycycline hyclate 100 mg capsule 100 mg PO BID Qty: 20 0RF prednisone 20 mg tablet 40 mg PO DAILY Qty: 10 0RF albuterol sulfate 90 mcg/actuation HFA aerosol inhaler 2 puff inhalation Q6H PRN (Reason: shortness of breath or wheezing) Qty: 8.5 1RF No Action meloxicam 15 mg tablet 15 mg PO DAILY Qty: 30 0RF albuterol sulfate 90 mcg/actuation HFA aerosol inhaler 2 puff inhalation Q6H PRN (Reason: shortness of breath or wheezing) Qty: 8.5 1RF nadolol 20 mg tablet 20 mg PO BID Qty: 180 3RF One-A-Day Women's Complete 18 mg iron- 400 mcg tablet PO Naphcon-A 0.025-0.3 % drops 2 drp EYE-BOTH BID PRN (Reason: eye irritation) Qty: 10 1RF furosemide [Lasix] 20 mg tablet 20 mg PO DAILY Qty: 90 1RF potassium chloride 10 mEq tablet extended release 10 meq PO DAILY Qty: 90 1RF ferrous sulfate [Iron (ferrous sulfate)] 325 mg (65 mg iron) Tablet 325 mg PO DAILY lactulose 10 gram/15 mL solution Referrals: Rick Becerra, [Primary Care Provider] - Stand Alone Forms: Patient Portal/API
[2023-10-04] MEDS: predniSONE 20 MG TABLET 60 MG PO (23:51)
[2023-10-04] MEDS: ALBUTEROL/IPRATROPIUM 3 ML AMPUL INH (23:51)
[2023-10-04] MEDS: DOXYCYCLINE HYCLATE 100 MG TABLET PO (23:51)
[2023-10-05 00:05] VITALS: PULSE 77; RESP 16; O2SAT 99
== END 2023-10-05 00:05 | disposition home or self-care (01) ==
PROVIDERS: Emergency Provider Emergency Medicine; Family Provider Nurse Practitioner Family; PCP Family Medicine
DX: J18.9 Pneumonia, unspecified organism (principal); J44.1 Chronic obstructive pulmonary disease with (acute) exacerbation; H66.93 Otitis media, unspecified, bilateral
CPT/HCPCS: 71046; 99284

== ENCOUNTER 2023-12-31 18:23 | Emergency (ER) | payer SELFPAY ==
[2021-09-21 22:26] VITALS: BMI 35.8
[2023-12-31 18:35] VITALS: BP 141/65; PULSE 77; RESP 18; TEMP 37.7; O2SAT 91; BMI 26.6
[2023-12-31 18:52] LABS: Appearance Urine UA SL CLOUDY; Bilirubin Urine UA NEGATIVE (NEGATIVE); Color Urine UA YELLOW; Glucose Urine UA NEGATIVE (Negative); Ketones Urine UA NEGATIVE (NEGATIVE); Leukocyte Esterase Urine UA 3+ (NEGATIVE); Nitrite Urine UA POSITIVE (Negative); Occult Blood Urine UA TRACE-INTACT (Negative); Protein Urine UA TRACE (Negative); Specific Gravity Urine UA 1.015 (1.000-1.035)
[2023-12-31 19:03] LABS: Bacteria Urine Many (>30); Culture Indicated Urine Specimen Cultured; RBC Urine 0-1/HPF (0-5/HPF); Squamous Epithelial Cell Urine 0-1 /HPF (0-5/HPF); Urine Volume 10mL (spun); WBC Urine 10-30/HPF (0-5/HPF)
--- NOTE | 2023-12-31 19:21 | ED_ITS ---
HPI - General Adult General Chief complaint: Urogenital-Female Stated complaint: thinks UTI Time Seen by Provider: 12/31/23 18:56 Source: patient Mode of arrival: Ambulatory History of Present Illness HPI narrative: Patient is a 53-year-old female who is here for evaluation of dysuria, urgency, frequency, back discomfort and generally not feeling very well. The patient's symptoms been going on for the past several days. She was tried to control them at home with [id number] azo. She has had urinary tract infections in the past. Most recent 1 was several weeks ago. No fevers. Related Data Home Medications Medication Instructions Recorded Confirmed ferrous sulfate 325 mg (65 mg 325 mg PO DAILY 05/03/23 06/22/23 iron) tablet (Iron (ferrous sulfate)) lactulose 10 gram/15 mL oral 05/03/23 06/22/23 solution dzcncexopbtw-zfjorsjp-foja tab PO 06/22/23 06/22/23 fumarate 18 mg-folic acid 400 mcg tablet (One-A-Day Women's Complete) Previous Rx's Medication Instructions Recorded albuterol sulfate 90 mcg/actuation 2 puff inhalation Q6H PRN 12/24/22 aerosol inhaler shortness of breath or wheezing #8.5 grams furosemide 20 mg tablet (Lasix) 20 mg PO DAILY #90 tabs 06/22/23 naphazoline 0.025 %-pheniramine 2 drp EYE-BOTH BID PRN eye 06/22/23 0.3 % eye drops (Naphcon-A) irritation #10 mL potassium chloride 10 mEq 10 meq PO DAILY #90 tabs 06/22/23 tablet,extended release meloxicam 15 mg tablet 15 mg PO DAILY #30 tabs 09/06/23 albuterol sulfate 90 mcg/actuation 2 puff inhalation Q6H PRN 10/04/23 aerosol inhaler shortness of breath or wheezing #8.5 grams doxycycline hyclate 100 mg capsule 100 mg PO BID #20 caps 10/04/23 prednisone 20 mg tablet 40 mg (2 x 20 mg) PO DAILY #10 tabs 10/04/23 nadolol 20 mg tablet 20 mg PO BID #180 tabs 10/11/23 cephalexin 500 mg capsule 500 mg PO BID 7 days #14 caps 12/31/23 Allergies Allergy/AdvReac Type Severity Reaction Status Date / Time acetaminophen [From Tylenol] Allergy Cirrhosis Verified 10/04/23 19:57 codeine [CODEINE] AdvReac Mild Headache Verified 10/04/23 19:57 ibuprofen [IBUPROFEN] AdvReac Mild Vomiting Verified 10/04/23 19:57 Review of Systems Constitutional Constitutional: Reports system reviewed and no additional complaints, except as documented Gastrointestinal Gastrointestinal: Reports system reviewed and no additional complaints, except as documented Genitourinary Genitourinary: Reports system reviewed and no additional complaints, except as documented Integumentary/Breasts Skin/Breast: Reports system reviewed and no additional complaints, except as documented Neurologic Neurologic: Reports system reviewed and no additional complaints, except as documented Patient History Medical History Esophageal varices Abdominal ascites Dysuria COPD (chronic obstructive pulmonary disease) UTI (urinary tract infection) Rhonchi Heart murmur Palpitation Hyperlipidemia Telangiectasia of skin Breast cancer screening Generalized edema Colon cancer screening Obesity (BMI 30.0-34.9) Essential (primary) hypertension Social History household members: family Smoking Status: Current every day smoker alcohol intake: never Smoking Status: Current every day smoker tobacco type: cigarettes alcohol intake frequency: holidays/special occasions only Substance Use Type: does not use Exam Initial Vital Signs Initial Vital Signs: Vital Signs Temperature 99.9 F H 12/31/23 18:35 Pulse Rate 77 12/31/23 18:35 Respiratory Rate 18 12/31/23 18:35 Blood Pressure 141/65 H 12/31/23 18:35 Pulse Oximetry 91 12/31/23 18:35 Oxygen Delivery Method Room Air 12/31/23 18:35 [facility] Head: normal to inspection and normocephalic Resp Effort & Inspection: normal respiratory effort Cardio Rate: regular rate GI Inspection: non-distended Skin General: no rashes or lesions noted Neuro General: patient alert and patient awake Course Orders Ordered: ED Orders 12/31/23 18:41 Urinalysis and Microscopic Stat Urine Culture Stat Discontinued Medications Cephalexin HCl (Cephalexin 250 Mg Capsule) 500 mg PO NOW ONE Stop: 12/31/23 19:23 Last Admin: 12/31/23 19:28 Dose: 500 mg Documented By: ROSENDO Vital Signs Vital signs: Vital Signs - 8 hr 12/31/23 18:35 Temperature 99.9 F H Pulse Rate 77 Respiratory Rate 18 Blood Pressure 141/65 H Pulse Oximetry 91 Oxygen Delivery Method Room Air Medical Decision Making Lab Data Lab results reviewed: Yes I reviewed the patient's lab results. Labs: Lab Results 12/31/23 Range/Units 18:41 Urine Color Yellow Urine Appearance Sl cloudy Urine pH 8.0 (4.5-8.0) Ur Specific [place] 1.015 (1.000-1.035) Urine Protein Trace H (Negative) Urine Glucose (UA) Negative (Negative) g/dL Urine Ketones Negative (NEGATIVE) Urine Occult Blood Trace-intact (Negative) Urine Nitrate Positive H (Negative) Urine Bilirubin Negative (NEGATIVE) Urine Urobilinogen 1.0 (0.2) E.U./dL Ur Leukocyte Esterase 3+ H (NEGATIVE) Urine RBC 0-1/hpf (0-5/HPF) Urine WBC 10-30/hpf H (0-5/HPF) Ur Squamous Epith Cells 0-1 /hpf (0-5/HPF) Urine Bacteria Many (>30) H (None) Ur Culture Indicated? Specimen cultured Vol Urine Centrifuged 10ml (spun) MDM Narrative Medical decision making narrative: History and physical exam and laboratory results are consistent with a urinary tract infection. I have low suspicion for pyelo. Patient was able to tolerated 1st dose of antibiotics here in the emergency department. Will send home with a prescription for the remainder. No indication for radiologic studies. He was given return precautions. She expressed understanding and agreement. Discharge Plan Departure Patient Disposition: Home Clinical Impression: UTI (urinary tract infection) Instructions: DI for Urinary Tract Infection (UTI) Activity Restrictions/Additional Instructions: Take the antibiotics as directed. They were sent to [facility] in [place]. Continue the rest of your medications as directed. There is a urine culture pending at the time of your discharge and we will contact you if we need to change any antibiotics based on this result. Return to the emergency department for new symptoms. Prescriptions: New cephalexin 500 mg capsule 500 mg PO BID 7 Days Qty: 14 0RF No Action meloxicam 15 mg tablet 15 mg PO DAILY Qty: 30 0RF nadolol 20 mg tablet 20 mg PO BID Qty: 180 3RF albuterol sulfate 90 mcg/actuation HFA aerosol inhaler 2 puff inhalation Q6H PRN (Reason: shortness of breath or wheezing) Qty: 8.5 1RF One-A-Day Women's Complete 18 mg iron- 400 mcg tablet PO Naphcon-A 0.025-0.3 % drops 2 drp EYE-BOTH BID PRN (Reason: eye irritation) Qty: 10 1RF furosemide [Lasix] 20 mg tablet 20 mg PO DAILY Qty: 90 1RF potassium chloride 10 mEq tablet extended release 10 meq PO DAILY Qty: 90 1RF doxycycline hyclate 100 mg capsule 100 mg PO BID Qty: 20 0RF prednisone 20 mg tablet 40 mg PO DAILY Qty: 10 0RF albuterol sulfate 90 mcg/actuation HFA aerosol inhaler 2 puff inhalation Q6H PRN (Reason: shortness of breath or wheezing) Qty: 8.5 1RF ferrous sulfate [Iron (ferrous sulfate)] 325 mg (65 mg iron) Tablet 325 mg PO DAILY lactulose 10 gram/15 mL solution Referrals: Rick Becerra DO [Primary Care Provider] - Stand Alone Forms: Patient Portal/API
[2023-12-31] MEDS: cephALEXin 250 MG CAPSULE 500 MG PO (19:28)
== END 2023-12-31 19:33 | disposition home or self-care (01) ==
PROVIDERS: Emergency Provider Emergency Medicine; Family Provider Nurse Practitioner Family; PCP Family Medicine
DX: N39.0 Urinary tract infection, site not specified (principal)
CPT/HCPCS: 81001; 87077; 87086; 87186; 99283

== ENCOUNTER 2024-08-29 21:11 | Emergency (ER) | payer BC, SELFPAY ==
[2021-09-21 22:26] VITALS: BMI 35.8
[2024-08-29 21:11] VITALS: BP 158/70; PULSE 76; RESP 16; TEMP 36.7; O2SAT 97; BMI 30.4
[2024-08-29 21:22] VITALS: BP 158/70; PULSE 78; O2SAT 98
--- NOTE | 2024-08-29 21:24 | DI.RAD.S_ITS ---
PROCEDURE: XR RIBS RT MIN 3V W CXR 1V INDICATIONS: felt a pop when someone cracked her back/pain TECHNIQUE: 3 views of the ribs were acquired, along with a single view chest. COMPARISON: [facility], , XR CHEST 2V, 10/04/2023, 20:14. FINDINGS: Surgical changes and devices: None. Bones and chest wall: No fractures or dislocations. No suspicious bony lesions. Overlying soft tissues appear unremarkable. Lungs and pleura: No pleural effusions or pneumothorax. Lungs appear clear. Mediastinum: Mediastinal contours appear normal. Heart size is normal. IMPRESSION: Macro occult injury Dictated by: Rubi Garcia M.D. on 08/29/2024 at 22:25 Approved by: Rubi Garcia M.D. on 08/29/2024 at 22:26
[2024-08-29 21:30] VITALS: PULSE 74; RESP 19; O2SAT 100
--- NOTE | 2024-08-29 21:35 | PC.NURSE ---
Pt ambulatory to imaging with tech
[2024-08-29 21:49] LABS: Bacteria Urine Many (>30); RBC Urine 1-5/HPF (0-5/HPF); Squamous Epithelial Cell Urine None Seen (0-5/HPF); Urine Volume 10mL (spun); WBC Urine 1-5/HPF (0-5/HPF)
[2024-08-29 21:51] LABS: Culture Indicated Urine Specimen Cultured
--- NOTE | 2024-08-29 22:08 | ED.CHESTPAIN ---
HPI - Chest Pain General Chief Complaint: Chest Pain Stated Complaint: abd px Time Seen by Provider: 08/29/24 22:03 Source: patient, RN notes reviewed and old records reviewed Mode of arrival: Ambulatory Limitations: no limitations History of Present Illness HPI narrative: 54-year-old female history of hepatitis-C treated, chronic cirrhosis and varices who presents with complaint of right rib pain. Patient states on Wednesday of friend gave her a bear hug picked her up and squeeze your quite tightly she states her whole back cracked than she felt a crack and pain in her ribs particularly on the right side. She states she has had persistent pain of the right ribs just underneath the breast. Worse with bending over and movement or deep inhalation. Has not appreciated any skin changes ecchymosis or redness. No fevers or chills. No shortness of breath. No nausea or vomiting. She is noticed some urgency frequency, no GI symptoms. Patient states home medications include potassium, Lasix, nadolol and lactulose. States he has had prior hysterectomy has not had any prior banding. Reports she was not able to take Tylenol or ibuprofen. Does use tobacco daily about 3 cigarettes, does not drink any alcohol, denies any recreational drugs. Related Data Home Medications Medication Instructions Recorded Confirmed ferrous sulfate 325 mg (65 mg 325 mg PO DAILY 05/03/23 06/22/23 iron) tablet (Iron (ferrous sulfate)) lactulose 10 gram/15 mL oral 05/03/23 06/22/23 solution rxaaxuckrgjz-agmamqyr-rkvp tab PO 06/22/23 06/22/23 fumarate 18 mg-folic acid 400 mcg tablet (One-A-Day Women's Complete) Previous Rx's Medication Instructions Recorded albuterol sulfate 90 mcg/actuation 2 puff inhalation Q6H PRN 12/24/22 aerosol inhaler shortness of breath or wheezing #8.5 grams naphazoline 0.025 %-pheniramine 2 drp EYE-BOTH BID PRN eye 06/22/23 0.3 % eye drops (Naphcon-A) irritation #10 mL meloxicam 15 mg tablet 15 mg PO DAILY #30 tabs 09/06/23 albuterol sulfate 90 mcg/actuation 2 puff inhalation Q6H PRN 10/04/23 aerosol inhaler shortness of breath or wheezing #8.5 grams doxycycline hyclate 100 mg capsule 100 mg PO BID #20 caps 10/04/23 prednisone 20 mg tablet 40 mg (2 x 20 mg) PO DAILY #10 tabs 10/04/23 nadolol 20 mg tablet 20 mg PO BID #180 tabs 10/11/23 furosemide 20 mg tablet (Lasix) 20 mg PO DAILY #60 tabs 08/22/24 potassium chloride 10 mEq 10 meq PO DAILY #90 tabs 08/24/24 tablet,extended release cephalexin 500 mg capsule 500 mg PO TID 5 days #15 caps 08/29/24 oxycodone 5 mg tablet 5 mg PO Q6H PRN pain #10 tabs 08/29/24 Allergies Allergy/AdvReac Type Severity Reaction Status Date / Time acetaminophen [From Tylenol] Allergy Cirrhosis Verified 10/04/23 19:57 codeine [CODEINE] AdvReac Mild Headache Verified 10/04/23 19:57 ibuprofen [IBUPROFEN] AdvReac Mild Vomiting Verified 10/04/23 19:57 Review of Systems Review of Systems ROS Unobtainable: All systems reviewed & are unremarkable except as noted in HPI and below Patient History Medical History Esophageal varices Abdominal ascites Dysuria COPD (chronic obstructive pulmonary disease) UTI (urinary tract infection) Rhonchi Heart murmur Palpitation Hyperlipidemia Telangiectasia of skin Breast cancer screening Generalized edema Colon cancer screening Obesity (BMI 30.0-34.9) Essential (primary) hypertension Social History household members: family Smoking Status: Current every day smoker alcohol intake: never Smoking Status: Current every day smoker tobacco type: cigarettes alcohol intake frequency: holidays/special occasions only Substance Use Type: does not use Exam Narrative Exam Narrative: GENERAL: Alert and oriented x three, female in mild distress HEENT: Head normocephalic, atraumatic, EOMI, pupils reactive, face symmetric, moist mucous membranes NECK: Supple, full range of motion CARDIOVASCULAR: Regular rate and rhythm without murmurs, rubs or gallops. Patient has reproducible chest tenderness over the right lateral ribs proximally rib 7 and 8 just underneath the right breast no ecchymosis or skin changes. There has no crepitus or subcutaneous emphysema. RESPIRATORY: Breath sounds equal bilaterally, no wheezes rales or rhonchi. No tachypnea accessory muscle use speaks in full sentences. ABDOMEN: Soft, nontender. Normoactive bowel sounds all 4 quadrants. No guarding or rebound, rigidity, no mass : No CVA tenderness EXTREMITIES: Normal range of motion, no clubbing or edema. Neurovascularly intact NEUROLOGICAL: Cranial nerves II through XII grossly intact. Moving all extremities SKIN: Warm, dry, no petechiae, no rashes or lesions. Initial Vital Signs Initial Vital Signs: Vital Signs Temperature 98.0 F 08/29/24 21:11 Pulse Rate 76 08/29/24 21:11 Respiratory Rate 16 08/29/24 21:11 Blood Pressure 158/70 H 08/29/24 21:11 Pulse Oximetry 97 08/29/24 21:11 Oxygen Delivery Method Room Air 08/29/24 21:11 Course Orders Ordered: ED Orders 08/29/24 21:24 XR ribs RT min 3V w CXR1V Stat 08/29/24 21:25 Urine Culture Stat Urine Microscopic Stat Discontinued Medications Cephalexin HCl (Cephalexin 250 Mg Capsule) 500 mg PO NOW ONE Stop: 08/29/24 22:29 Last Admin: 08/29/24 22:39 Dose: 500 mg Documented By: JEFFRY Oxycodone HCl (Oxycodone Ir 5 Mg Tablet) 5 mg PO NOW ONE Stop: 08/29/24 22:29 Last Admin: 08/29/24 22:39 Dose: 5 mg Documented By: JEFFRY Vital Signs Vital signs: Vital Signs - 8 hr 08/29/24 21:11 08/29/24 21:22 08/29/24 21:22 Temperature 98.0 F Pulse Rate 76 78 Respiratory Rate 16 Blood Pressure 158/70 H 158/70 H Pulse Oximetry 97 98 Oxygen Delivery Method Room Air 08/29/24 21:30 08/29/24 22:47 Temperature Pulse Rate 74 84 Respiratory Rate 19 18 Blood Pressure 141/76 H Pulse Oximetry 100 94 Oxygen Delivery Method Room Air MDM - Chest Pain Lab Data Labs: Lab Results 08/29/24 Range/Units 21:25 Urine RBC 1-5/hpf (0-5/HPF) Urine WBC 1-5/hpf (0-5/HPF) Ur Squamous Epith Cells None seen (0-5/HPF) Urine Bacteria Many (>30) H (None) Ur Culture Indicated? Specimen cultured Vol Urine Centrifuged 10ml (spun) Urine Dip Bedside Urine Glucose Negative Bedside Urine Bilirubin - Negative Bedside Urine Ketone - Negative Urine Specific [place] [address] 1.02 Bedside Urine Occult Blood - Negative Bedside Urine pH 6 Bedside Urine Protein - Negative Bedside Urine Urobilinogen - Negative Bedside Urine Nitrite + Positive Bedside Urine Leukocytes +/- 15 Esterase MDM Narrative Medical decision making narrative: 54-year-old female who had some trying to crack her back Wednesday evening which felt a pop has had persistent pain with movement and breathing. Also has concerns for potential UTI with urinary symptoms. Chest/rib x-ray shows no acute change. Urine micro shows 1-5 RBCs 1-5 WBCs no squamous many bacteria. Point of care is positive for nitrates positive leukocyte esterase. Urine is consistent with UTI we will start oral antibiotic. Discussed with patient's suspect rib contusion possible small rib fracture no obvious changes on chest x-ray. We will give a short course of pain medication. Incentive spirometer with teaching. Discussed return precautions. Discharge Plan Departure Patient Disposition: Home Clinical Impression: Contusion of rib, UTI (urinary tract infection) Instructions: DI for Rib Fracture Activity Restrictions/Additional Instructions: Follow up as needed did. Your x-ray does not show any acute changes I suspect she either has a little bit of contusion or nondisplaced rib fracture. This can take weeks to fully heal but should feel better in the next 1-2 weeks. Your urine does show signs of infection. Take antibiotics until completed. Use incentive spirometer once hourly while awake. You can take oxycodone 1 tablet every 6 hours as needed for pain. Prescription for antibiotics as well as pain medication was sent to [facility] in [place]. Please return for fevers, new or worsening chest pain, shortness of breath, lightheadedness or passing out, persistent vomiting, inability to urinate or other new or concerning changes. Prescriptions: New cephalexin 500 mg capsule 500 mg PO TID 5 Days Qty: 15 0RF oxycodone 5 mg tablet 5 mg PO Q6H PRN (Reason: pain) Qty: 10 0RF No Action meloxicam 15 mg tablet 15 mg PO DAILY Qty: 30 0RF nadolol 20 mg tablet 20 mg PO BID Qty: 180 3RF furosemide [Lasix] 20 mg tablet 20 mg PO DAILY Qty: 60 0RF potassium chloride 10 mEq tablet extended release 10 meq PO DAILY Qty: 90 0RF Rx Instructions: bridge to September appt albuterol sulfate 90 mcg/actuation HFA aerosol inhaler 2 puff inhalation Q6H PRN (Reason: shortness of breath or wheezing) Qty: 8.5 1RF One-A-Day Women's Complete 18 mg iron- 400 mcg tablet PO Naphcon-A 0.025-0.3 % drops 2 drp EYE-BOTH BID PRN (Reason: eye irritation) Qty: 10 1RF doxycycline hyclate 100 mg capsule 100 mg PO BID Qty: 20 0RF prednisone 20 mg tablet 40 mg PO DAILY Qty: 10 0RF albuterol sulfate 90 mcg/actuation HFA aerosol inhaler 2 puff inhalation Q6H PRN (Reason: shortness of breath or wheezing) Qty: 8.5 1RF ferrous sulfate [Iron (ferrous sulfate)] 325 mg (65 mg iron) Tablet 325 mg PO DAILY lactulose 10 gram/15 mL solution Referrals: Rick Becerra, [Primary Care Provider] - Stand Alone Forms: Patient Portal/API/Survey
[2024-08-29] MEDS: cephALEXin 250 MG CAPSULE 500 MG PO (22:39)
[2024-08-29] MEDS: OXYCODONE IR 5 MG TABLET PO (22:39)
[2024-08-29 22:47] VITALS: BP 141/76; PULSE 84; RESP 18; O2SAT 94
== END 2024-08-29 22:47 | disposition home or self-care (01) ==
PROVIDERS: Emergency Provider Emergency Medicine; Family Provider Nurse Practitioner Family; PCP Family Medicine
DX: S20.211A Contusion of right front wall of thorax, initial encounter (principal); N39.0 Urinary tract infection, site not specified; X58.XXXA Exposure to other specified factors, initial encounter; F17.210 Nicotine dependence, cigarettes, uncomplicated
CPT/HCPCS: 71101; 81003; 81015; 87077; 87086; 87186; 99283

== ENCOUNTER → 2024-09-15 17:08 | Outpatient (CLI) | payer BC, SELFPAY ==
[2021-09-21 22:26] VITALS: BMI 35.8
[2024-09-15 17:35] LABS: Ammonia (NH3) 70 umol/L (9-30)
[2024-09-15 18:16] LABS: Add Manual Diff / Slide Review NO; Basophils Absolute Auto 0 /uL (0-100); Basophils Percent Auto 0.1 % (0-2); Eosinophils Absolute Auto 100 /uL (0-450); Hematocrit 41.7 % (36-46); Hemoglobin 13.7 g/dL (12.0-16.0); Lymphocytes Absolute Auto 1700 /uL (1100-4500); Lymphocytes Percent Auto 28.5 % (25-40); Mean Corpuscular HGB Conc 32.9 % (30-36); Mean Corpuscular Hemoglobin 30.8 PG (26-34); Mean Corpuscular Volume 93.6 fL (80-100); Monocytes Absolute Auto 300 /uL (0-900); Monocytes Percent Auto 5.7 % (3-14); Neutrophils Absolute Auto 3900 /uL (1500-7000); Neutrophils Percent Auto 64.7 % (50-75); Platelet Count 103 X10^3/uL (150-400); Red Blood Cell Count 4.46 X10^6/uL (4.0-5.2); Red Cell Distribution Width 13.5 % (11.6-14.8)
[2024-09-15 18:27] LABS: HEMOLYSIS < 15 (0-50); Iron 54 ug/dL (37-170)
[2024-09-15 18:29] LABS: Alanine Aminotransferase 67 IU/L (<35); Albumin 3.9 g/dL (3.5-5.0); Albumin Globulin Ratio 1.1 (1.0-2.8); Alkaline Phosphatase 145 U/L (38-126); Aspartate Aminotransferase 72 IU/L (14-36); BUN Creatinine Ratio 20.6 (6-22); Bilirubin Total 0.7 mg/dL (0.2-1.3); Blood Urea Nitrogen 13 mg/dL (7-17); Carbon Dioxide 27 mmol/L (22-32); Chloride 108 mmol/L (98-107); Estimated Glomerular Filt Rate > 60 mL/min (>60); Globulin 3.4 g/dL (1.7-4.1); Glucose 129 mg/dL (70-100); HEMOLYSIS 37 (0-50); Potassium 3.9 mmol/L (3.4-5.1); Sodium 139 mmol/L (137-145); Total Protein 7.3 g/dL (6.3-8.2)
[2024-09-15 18:40] LABS: Percent Iron Saturation 15 % (15-50); Total Iron Binding Capacity 372 ug/dL (265-497); Transferrin 324 mg/dL (206-381)
[2024-09-15 18:59] LABS: TSH w/ Reflex to FT4 1.51 uIU/mL (0.47-4.68)
== END ==
LOC: LAB 17:10
PROVIDERS: Family Provider Nurse Practitioner Family; PCP Family Medicine; Referring Provider Family Medicine; Visit Provider Family Medicine
DX: E78.5 Hyperlipidemia, unspecified (principal); I10 Essential (primary) hypertension; K74.60 Unspecified cirrhosis of liver; D64.9 Anemia, unspecified
CPT/HCPCS: 36415; 80053; 82140; 83540; 83550; 84443; 85025

== ENCOUNTER 2024-12-11 09:05 | Day surgery (SDC) | payer SELFPAY ==
[2021-09-21 22:26] VITALS: BMI 35.8
[2024-12-11] MEDS: LACTATED RINGERS 1,000 ML 42 ML IV (09:52)
[2024-12-11 09:58] VITALS: BP 137/77; PULSE 66; RESP 14; TEMP 36.4; O2SAT 98
--- NOTE | 2024-12-11 10:41 | PM.HP.IH.1 ---
History of Present Illness History of Present Illness Date Patient Seen: 12/11/24 Time Patient Seen: 10:41 Chief complaint: SDC Narrative: 54 year old WF with cirrhosis from Hep C, presents with screening following a polypectomy 3 years prior. [facility] Medical History Esophageal varices Abdominal ascites Dysuria COPD (chronic obstructive pulmonary disease) UTI (urinary tract infection) Rhonchi Heart murmur Palpitation Hyperlipidemia Telangiectasia of skin Breast cancer screening Generalized edema Colon cancer screening Obesity (BMI 30.0-34.9) Essential (primary) hypertension Social History household members: family Smoking Status: Current every day smoker alcohol intake: never Meds Home Medications and Allergies Home Medications Medication Instructions Recorded Confirmed Type lactulose 10 gram/15 mL oral 05/03/23 09/15/24 History solution hdieqolhjixr-hgshqbqf-xnps tab PO 06/22/23 09/15/24 History fumarate 18 mg-folic acid 400 mcg tablet (One-A-Day Women's Complete) naphazoline 0.025 %-pheniramine 2 drp EYE-BOTH BID PRN eye 06/22/23 09/15/24 Rx 0.3 % eye drops (Naphcon-A) irritation #10 mL albuterol sulfate 90 mcg/actuation 2 puff inhalation Q6H PRN 10/04/23 12/11/24 Rx aerosol inhaler shortness of breath or wheezing #8.5 grams nadolol 20 mg tablet 20 mg PO BID #180 tabs 10/11/23 12/11/24 Rx sodium,potassium,mag sulfates 17.5 See Rx Instructions PO .COMPLEX 10/11/24 Rx gram-3.13 gram-1.6 gram oral soln #354 mL (Suprep Bowel Prep Kit) furosemide 20 mg tablet (Lasix) 20 mg PO DAILY #60 tabs 10/20/24 12/11/24 Rx potassium chloride 10 mEq 10 meq PO DAILY #90 tabs 11/20/24 12/11/24 Rx tablet,extended release Allergies Allergy/AdvReac Type Severity Reaction Status Date / Time acetaminophen [From Tylenol] Allergy Cirrhosis Verified 12/11/24 09:53 codeine [CODEINE] AdvReac Mild Headache Verified 12/11/24 09:53 ibuprofen [IBUPROFEN] AdvReac Mild Vomiting Verified 12/11/24 09:53 Review of Systems Review of Systems ROS: Yes All systems reviewed with the patient and are negative except as otherwise documented Exam Vital Signs (past 8 hours): - 12/11/24 09:58 Temperature 97.5 F L Pulse Rate 66 Respiratory Rate 14 Blood Pressure 137/77 Pulse Oximetry 98 Oxygen Delivery Method Room Air Oxygen Delivery Method Room Air Narrative Exam Narrative: Gen: NAD, sitting comfortably in bed, appears well HEENT: Sclera are anicteric, head is normocephalic and atraumatic, trachea is midline. CV: RRR, no JVD Resp: clear to auscultation bilaterally, equal chest wall movement bilaterally Abd: soft, nontender, normoactive bowel sounds Ext: no edema, full range of motion Neuro: Cranial nerves II-XII grossly intact, no focal deficits Skin: No erythema or ecchymosis Assessment & Plan Assessment and plan (1) Esophageal varices: Qualifiers: Esophageal varices type: secondary Esophageal varices bleeding: without bleeding Qualified Code(s): I85.10 - Secondary esophageal varices without bleeding Status: Acute Plan: Patient had EGD two years ago, no signs of bleeding, not interested in EGD with banding today. (2) Personal history of colonic polyps: Status: Acute Plan: Patient presents for colonoscopy Risks, benefits, alternatives to colonoscopy explained, including but not limited to bowel perforation or other serious complication requiring surgery at less than 1 in 5000 colonoscopies, abdominal pain, cramping or bleeding and less than 1% of colonoscopies, and the chances that we find a diagnosis that would require further intervention of about 2%. Possibly increased risk of bleeding with cirrhosis and splenomegaly. Patient agrees to proceed. Time-Based Coding :: [TOTAL MINUTES] spent with patient and on the chart (including review of chart, obtaining history, exam, reviewing outside data, placing orders, documenting exam and treatment plan, and counseling patient) on [DATE]. PROFEE Painter Assistant Document charge(s): No
--- NOTE | 2024-12-11 11:04 | PM.OP.COLON ---
Operative Date/Time/Diagnoses Date of procedure: 12/11/24 Time of procedure: 11:04 Pre-op diagnosis: Personal history of polyps Post-op diagnosis: same Procedure & Clinicians Study performed: Colonoscopy Same procedure as scheduled: Yes Indications: Personal history of polyps Surgeon: Kannan Sanchez Procedure Notes SCOAP/Timeout: Performed Procedure in detail: Time-out was performed. Mac was induced. Patient was placed in left lateral decubitus position. The perineum was inspected without any gross abnormality. Lubricated pediatric colonoscope was inserted and advanced to the cecum. The terminal ileum was intubated. The colonoscope was withdrawn slowly inspecting the circumference of the colon. Very small polyps may have been missed, prep quality was adequate. Retroflexed view of the rectum showed small, non prolapsed nonbleeding internal hemorrhoids. The scope was withdrawn the patient was taken to PACU in good condition. Scope withdrawal time: 8 Findings: internal hemorrhoids Specimen(s): none sent Complications: none Impression: normal colon Post-procedure Recommendations: Colonoscopy in 10 years Follow up: as needed Disposition: PACU
[2024-12-11 11:08] VITALS: BP 121/65; PULSE 74; RESP 18; TEMP 36.3; O2SAT 97
[2024-12-11 11:13] VITALS: BP 134/69; PULSE 72; RESP 22; O2SAT 98
[2024-12-11 11:19] VITALS: BP 120/54; PULSE 67; RESP 17; O2SAT 98
[2024-12-11 11:24] VITALS: BP 122/59; PULSE 66; RESP 12; TEMP 36.1; O2SAT 98
[2024-12-11 11:30] VITALS: BP 121/67; PULSE 82; RESP 13; TEMP 36.1; O2SAT 97
== END 2024-12-11 11:38 | disposition home or self-care (01) ==
PROVIDERS: Family Provider Nurse Practitioner Family; PCP Family Medicine; Referring Provider Surgery; Visit Provider Surgery
PROC: 0DJD8ZZ Inspection of Lower Intestinal Tract, Via Natural or Artificial Opening Endoscopic (ICD-10-PCS; CPT 45378; principal; 2024-12-11 10:15)
DX: Z12.11 Encounter for screening for malignant neoplasm of colon (principal); Z86.0100 Personal history of colon polyps, unspecified; F17.210 Nicotine dependence, cigarettes, uncomplicated; K64.8 Other hemorrhoids
CPT/HCPCS: 45378; J2704

== ENCOUNTER 2024-12-12 21:59 | Emergency (ER) | payer BC, SELFPAY ==
[2021-09-21 22:26] VITALS: BMI 35.8
[2024-12-12 22:16] VITALS: BP 117/62; PULSE 71; RESP 15; TEMP 37.1; O2SAT 96; BMI 29.0
--- NOTE | 2024-12-12 22:24 | EKG_ITS ---
[address] [address] Test Date: 2024-12-12 Pat Name: Lana Felix Department: Room: Gender: Female Dorr Operator: SABRINA : 1970 Requested By: Order Number: [id number] Reading MD: Iftikhar Parikh Measurements Intervals [place] Rate: 66 P: 55 MO: 152 QRS: 44 QRSD: 80 T: 19 QT: 402 QTc: 421 Interpretive Statements Normal sinus rhythm Electronically Signed On 12-16-2024 18:25:18 PDT by Iftikhar Parikh
[2024-12-12 22:45] VITALS: PULSE 69; O2SAT 98
[2024-12-12 22:48] VITALS: BP 129/66; PULSE 70; RESP 20; O2SAT 99
[2024-12-12] MEDS: ONDANSETRON 4 MG/2 ML INJ IV (22:51)
[2024-12-12 23:00] VITALS: BP 129/69; PULSE 69; RESP 19; O2SAT 98
[2024-12-12 23:02] LABS: Add Manual Diff / Slide Review NO; Basophils Absolute Auto 0 /uL (0-100); Basophils Percent Auto 0.2 % (0-2); Eosinophils Absolute Auto 0 /uL (0-450); Eosinophils Percent Auto 0.5 % (2-4); Hemoglobin 16.8 g/dL (12.0-16.0); Lymphocytes Absolute Auto 500 /uL (1100-4500); Lymphocytes Percent Auto 4.7 % (25-40); Mean Corpuscular HGB Conc 33.6 % (30-36); Mean Corpuscular Hemoglobin 31.9 PG (26-34); Mean Corpuscular Volume 94.8 fL (80-100); Monocytes Absolute Auto 400 /uL (0-900); Monocytes Percent Auto 3.4 % (3-14); Neutrophils Absolute Auto 9400 /uL (1500-7000); Neutrophils Percent Auto 91.2 % (50-75); Platelet Count 99 X10^3/uL (150-400); Red Blood Cell Count 5.27 X10^6/uL (4.0-5.2); Red Cell Distribution Width 13.6 % (11.6-14.8); White Blood Cell Count 10.3 X10^3/uL (4.5-11.0)
[2024-12-12 23:10] LABS: INR 1.1 (0.9-1.3); Prothrombin Time 12.2 SECONDS (9.4-12.5)
[2024-12-12 23:16] LABS: Alanine Aminotransferase 83 IU/L (<35); Albumin 4.5 g/dL (3.5-5.0); Albumin Globulin Ratio 1.1 (1.0-2.8); Alkaline Phosphatase 138 U/L (38-126); Aspartate Aminotransferase 104 IU/L (14-36); Bilirubin Total 1.5 mg/dL (0.2-1.3); Blood Urea Nitrogen 9 mg/dL (7-17); Calcium 9.2 mg/dL (8.4-10.2); Carbon Dioxide 25 mmol/L (22-32); Chloride 103 mmol/L (98-107); Estimated Glomerular Filt Rate > 60 mL/min (>60); Glucose 131 mg/dL (70-100); HEMOLYSIS 23 (0-50); Lipase 57 U/L (23-300); Potassium 4.2 mmol/L (3.4-5.1); Sodium 138 mmol/L (137-145); Total Protein 8.5 g/dL (6.3-8.2)
[2024-12-12 23:30] VITALS: BP 140/65; PULSE 68; RESP 18; O2SAT 97
[2024-12-13] VITALS: BP 137/70; PULSE 73; RESP 18; O2SAT 94
[2024-12-13 00:30] VITALS: BP 135/68; PULSE 77; RESP 19; O2SAT 95
--- NOTE | 2024-12-13 00:44 | ED_ITS ---
HPI - Abdominal Pain General Chief Complaint: Abdominal Pain Stated Complaint: n/v, pain s/p colonoscopy yesterday Time Seen by Provider: 12/13/24 00:44 Source: patient, RN notes reviewed and old records reviewed Mode of arrival: Ambulatory Limitations: no limitations History of Present Illness HPI narrative: 54-year-old female history of COPD, hepatitis-C which has been treated, cirrhosis and esophageal varices, dyslipidemia, who had a screening colonoscopy on Wednesday. She developed abdominal pain in the next day, nausea, vomiting and diarrhea. No black or bloody stools. Patient states she would have some sweats. States this all started earlier in the afternoon. Denies any bright red blood or melanotic stools. Had 3 episodes this afternoon. Does not appreciate any dysuria urgency or frequency but states she has had frequent UTIs in the past. Denies any chest pain or shortness of breath. Describes abdominal pain is sort of being on the size and upper abdomen. Patient states she was currently taking nadolol, potassium, furosemide, iron, lactulose and omeprazole daily. Reports allergies to Tylenol, codeine ibuprofen although she states Tylenol and ibuprofen are secondary to her cirrhosis. States she has had prior ex lap and hysterectomy has not had any banding for her varices but has had scopes. Smokes 1-3 cigarettes daily no alcohol or recreational drugs. States Dr. Sanchez performed her colonoscopy. Dr. Becerra is her primary care physician. Related Data Home Medications Medication Instructions Recorded Confirmed lactulose 10 gram/15 mL oral 05/03/23 09/15/24 solution jedcipaswmyn-[id number] tab PO 06/22/23 09/15/24 fumarate 18 mg-folic acid 400 mcg tablet (One-A-Day Women's Complete) Previous Rx's Medication Instructions Recorded naphazoline 0.025 %-pheniramine 2 drp EYE-BOTH BID PRN eye 06/22/23 0.3 % eye drops (Naphcon-A) irritation #10 mL albuterol sulfate 90 mcg/actuation 2 puff inhalation Q6H PRN 10/04/23 aerosol inhaler shortness of breath or wheezing #8.5 grams nadolol 20 mg tablet 20 mg PO BID #180 tabs 10/11/23 sodium,potassium,mag sulfates 17.5 See Rx Instructions PO .COMPLEX 10/11/24 gram-3.13 gram-1.6 gram oral soln #354 mL (Suprep Bowel Prep Kit) furosemide 20 mg tablet (Lasix) 20 mg PO DAILY #60 tabs 10/20/24 potassium chloride 10 mEq 10 meq PO DAILY #90 tabs 11/20/24 tablet,extended release cephalexin 500 mg capsule 500 mg PO TID 5 days #15 caps 12/13/24 Allergies Allergy/AdvReac Type Severity Reaction Status Date / Time acetaminophen [From Tylenol] Allergy Cirrhosis Verified 12/11/24 09:53 codeine [CODEINE] AdvReac Mild Headache Verified 12/11/24 09:53 ibuprofen [IBUPROFEN] AdvReac Mild Vomiting Verified 12/11/24 09:53 Review of Systems Review of Systems ROS Unobtainable: All systems reviewed & are unremarkable except as noted in HPI and below Patient History Medical History Esophageal varices Abdominal ascites Dysuria COPD (chronic obstructive pulmonary disease) UTI (urinary tract infection) Rhonchi Heart murmur Palpitation Hyperlipidemia Telangiectasia of skin Breast cancer screening Generalized edema Colon cancer screening Obesity (BMI 30.0-34.9) Essential (primary) hypertension Social History household members: family Smoking Status: Current every day smoker alcohol intake: never Smoking Status: Current every day smoker tobacco type: cigarettes alcohol intake frequency: holidays/special occasions only Exam Narrative Exam Narrative: GENERAL: Alert and oriented x three, female in mild distress HEENT: Head normocephalic, atraumatic, EOMI, pupils reactive, face symmetric, moist mucous membranes NECK: Supple, full range of motion CARDIOVASCULAR: Regular rate and rhythm without murmurs, rubs or gallops. RESPIRATORY: Breath sounds equal bilaterally, no wheezes rales or rhonchi. ABDOMEN: Soft, mild generalized tenderness. Normoactive bowel sounds all 4 quadrants. No guarding or rebound, rigidity, no mass : No CVA tenderness EXTREMITIES: Normal range of motion, no clubbing or edema. Neurovascularly intact NEUROLOGICAL: Cranial nerves II through XII grossly intact. Moving all extremities SKIN: Warm, dry, no petechiae, no rashes or lesions. Initial Vital Signs Initial Vital Signs: Vital Signs Temperature 98.7 F 12/12/24 22:16 Pulse Rate 71 12/12/24 22:16 Respiratory Rate 15 12/12/24 22:16 Blood Pressure 117/62 12/12/24 22:16 Pulse Oximetry 96 12/12/24 22:16 Oxygen Delivery Method Room Air 12/12/24 22:16 Course Orders Ordered: ED Orders 12/12/24 22:14 Complete Blood Count AUTO DIFF Stat Comprehensive Metabolic Panel Stat Lipase Stat Prothrombin Time INR Stat 12/12/24 22:24 EKG-12 Lead Stat 12/13/24 00:53 CT abdomen pelvis w con Stat 12/13/24 01:14 Ictotest Urine Stat Urine Culture Stat Urine Microscopic Stat Discontinued Medications Cephalexin HCl (Cephalexin 250 Mg Capsule) 500 mg PO NOW ONE Stop: 12/13/24 01:57 Last Admin: 12/13/24 01:59 Dose: 500 mg Documented By: MARISOL Sodium Chloride (Normal Saline 0.9%) 1,000 mls @ 1,000 mls/hr IV BOLUS ONE Stop: 12/13/24 01:52 Last Infusion: 12/13/24 02:07 Dose: Infused Documented By: Admin: 12/13/24 01:13 Dose: 1,000 mls/hr Documented By: Metoclopramide HCl (Metoclopramide 10 Mg/2 Ml Inj) 10 mg IV NOW ONE Stop: 12/13/24 00:54 Last Admin: 12/13/24 00:59 Dose: 10 mg Documented By: Morphine Sulfate (Morphine 4 Mg/Ml Inj) 4 mg IV NOW ONE Stop: 12/13/24 00:54 Last Admin: 12/13/24 00:59 Dose: 4 mg Documented By: Ondansetron HCl (Ondansetron 4 Mg/2 Ml Inj) 4 mg IV NOW PRN PRN Reason: Nausea And Vomiting Last Admin: 12/12/24 22:51 Dose: 4 mg Documented By: MARISOL Ondansetron HCl (Ondansetron 4 Mg Odt) 4 mg PO NOW PRN PRN Reason: Nausea And Vomiting Ondansetron HCl (Ondansetron 4 Mg Odt Prepack) 1 bottle MISC DIRECTED ONE Stop: 12/13/24 01:57 Last Admin: 12/13/24 01:59 Dose: 1 bottle Documented By: MARISOL Vital Signs Vital signs: Vital Signs - 8 hr 12/12/24 22:16 12/12/24 22:45 12/12/24 22:48 Temperature 98.7 F Pulse Rate 71 69 Respiratory Rate 15 Blood Pressure 117/62 129/66 Pulse Oximetry 96 98 Oxygen Delivery Method Room Air 12/12/24 22:48 12/12/24 23:00 12/12/24 23:00 Temperature Pulse Rate 70 69 Respiratory Rate 20 19 Blood Pressure 129/69 Pulse Oximetry 99 98 Oxygen Delivery Method Room Air Room Air 12/12/24 23:30 12/12/24 23:30 12/13/24 00:00 Temperature Pulse Rate 68 Respiratory Rate 18 Blood Pressure 140/65 137/70 Pulse Oximetry 97 Oxygen Delivery Method 12/13/24 00:00 12/13/24 00:30 12/13/24 00:30 Temperature Pulse Rate 73 77 Respiratory Rate 18 19 Blood Pressure 135/68 Pulse Oximetry 94 95 Oxygen Delivery Method Room Air Room Air 12/13/24 01:00 12/13/24 01:00 12/13/24 01:27 Temperature Pulse Rate 82 Respiratory Rate 21 Blood Pressure 123/74 124/94 H Pulse Oximetry 93 Oxygen Delivery Method 12/13/24 01:27 12/13/24 01:30 12/13/24 01:30 Temperature Pulse Rate 76 78 Respiratory Rate 15 17 Blood Pressure 121/56 L Pulse Oximetry 97 97 Oxygen Delivery Method Room Air 12/13/24 02:00 12/13/24 02:00 Temperature Pulse Rate 70 Respiratory Rate 19 Blood Pressure 129/61 Pulse Oximetry 97 Oxygen Delivery Method Room Air MDM - Abdominal Pain Lab Data 12/12/24 22:14 12/12/24 22:14 Labs: Lab Results 12/12/24 12/13/24 Range/Units 22:14 01:14 WBC 10.3 (4.5-11.0) X10^3/uL RBC 5.27 H (4.0-5.2) X10^6/uL Hgb 16.8 H (12.0-16.0) g/dL Hct 50.0 H (36-46) % MCV 94.8 (80-100) fL MCH 31.9 (26-34) PG MCHC 33.6 (30-36) % RDW 13.6 (11.6-14.8) % Plt Count 99 L (150-400) X10^3/uL Neut % (Auto) 91.2 H (50-75) % Lymph % (Auto) 4.7 L (25-40) % [place] % (Auto) 3.4 (3-14) % Eos % (Auto) 0.5 L (2-4) % Baso % (Auto) 0.2 (0-2) % Neut # (Auto) 9400 H (3975-1397) /uL Lymph # (Auto) 500 L (0046-5495) /uL [place] # (Auto) 400 (0-900) /uL Eos # (Auto) 0 (0-450) /uL Baso # (Auto) 0 (0-100) /uL PT 12.2 (9.4-12.5) SECONDS INR 1.1 (0.9-1.3) Sodium 138 (137-145) mmol/L Potassium 4.2 (3.4-5.1) mmol/L Chloride 103 (98-107) mmol/L Carbon Dioxide 25 (22-32) mmol/L BUN 9 (7-17) mg/dL Creatinine 0.53 (0.52-1.04) mg/dL Estimated GFR > 60 (>60) mL/min BUN/Creatinine Ratio 17.0 (6-22) Glucose 131 H (70-100) mg/dL Calcium 9.2 (8.4-10.2) mg/dL Total Bilirubin 1.5 H (0.2-1.3) mg/dL AST 104 H (14-36) IU/L ALT 83 H (<35) IU/L Alkaline Phosphatase 138 H (38-126) U/L Total Protein 8.5 H (6.3-8.2) g/dL Albumin 4.5 (3.5-5.0) g/dL Globulin 4.0 (1.7-4.1) g/dL Albumin/Globulin Ratio 1.1 (1.0-2.8) Lipase 57 (23-300) U/L Ur Bilirubin Confirm Negative (Negative) Urine RBC 0-1/hpf (0-5/HPF) Urine WBC 5-10/hpf H (0-5/HPF) Ur Squamous Epith Cells 0-1 /hpf (0-5/HPF) Urine Bacteria Many (>30) H (None) Ur Culture Indicated? Specimen cultured Vol Urine Centrifuged 10ml (spun) Point of care testing: Point of Care Testing Test Results Negative Urine Dip Bedside Urine Glucose Negative Bedside Urine Bilirubin + 1 Bedside Urine Ketone +/- 5 Urine Specific [place] 1.025 Bedside Urine Occult Blood + Bedside Urine pH 6.0 Bedside Urine Protein +/- 15 Bedside Urine Urobilinogen +/- 1mg Bedside Urine Nitrite + Positive Bedside Urine Leukocytes ++ 125 Esterase ECG Data Attestation: I personally reviewed and interpreted this ECG as follows: Interpretation: Sinus rhythm rate of 66 HI 152 QRS 80 QTC of [address] elevation or depression noted. MDM Narrative Medical decision making narrative: Labs show white count of 10.3 hemoglobin of 16.8 was 13 and September 2024 platelets are 99 which appears pretty consistent with priors. INR is 1.1 electrolytes are otherwise appropriate BUN creatinine are appropriate glucose is 131 bilirubin is 1.5 AST is 104 ALT is 83 alk-phos is 138 lipase is 57. Bilirubin is up prior in September 2024 patient's other LFTs are fairly similar. CT abdomen pelvis paraesophageal varices, trace hiatal hernia right lobe granuloma again seen CBD measures 8 mm mildly distended. Portal venous varices and recanalization of the paraumbilical vein. Borderline splenomegaly 13-14 cm, mild prominent fluid-filled loops of stool still small bowel. No obstruction liquid colonic contents mild scattered colonic wall thickening nondilated appendix. Mild scattered colonic wall thickening may represent colitis reactive changes to recent procedure. Cirrhosis and sequela of portal hypertension consider future HCC screening if clinically indicated. Point of care urine is nitrate positive with leukocyte esterase. Micro shows 5- 10 white cells 1 red cell 1 squamous many bacteria was sent for culture. Patient was started on oral antibiotic. is negative CT abdomen pelvis obtained as patient has a abdominal pain with nausea vomiting and diarrhea status post colonoscopy. No signs of perforation. Does has some patchy spots could be colitis versus she had recent colonoscopy prep. Patient is nontoxic, well-appearing with a overall benign abdominal exam. We will cover with the oral antibiotics for potential UTI. Patient given short course of Zofran. Return precautions. Discharge Plan Departure Patient Disposition: Home Clinical Impression: Nausea vomiting and diarrhea, UTI (urinary tract infection), S/P colonoscopy Activity Restrictions/Additional Instructions: Follow up for recheck if your symptoms are not improving. Your workup today does show potential UTI, please take antibiotics until completed. Continue your home medications as prescribed. You can take Zofran 1 tablet every 6 hours as needed for nausea. Prescription sent to [facility] in [place]. Please return for fevers, new or worsening abdominal back or flank pain, persistent vomiting, black or bloody stools, lightheadedness or passing out or other new or concerning changes. Prescriptions: New cephalexin 500 mg capsule 500 mg PO TID 5 Days Qty: 15 0RF No Action nadolol 20 mg tablet 20 mg PO BID Qty: 180 3RF sodium,potassium,mag sulfates [Suprep Bowel Prep Kit] 17.5-3.13-1.6 gram recon soln See Rx Instructions PO .COMPLEX Qty: 354 0RF Rx Instructions: take as directed by Physician furosemide [Lasix] 20 mg tablet 20 mg PO DAILY Qty: 60 2RF potassium chloride 10 mEq tablet extended release 10 meq PO DAILY Qty: 90 0RF Rx Instructions: bridge to September appt One-A-Day Women's Complete 18 mg iron- 400 mcg tablet PO Naphcon-A 0.025-0.3 % drops 2 drp EYE-BOTH BID PRN (Reason: eye irritation) Qty: 10 1RF albuterol sulfate 90 mcg/actuation HFA aerosol inhaler 2 puff inhalation Q6H PRN (Reason: shortness of breath or wheezing) Qty: 8.5 1RF Rx Instructions: use it months ago lactulose 10 gram/15 mL solution Referrals: Rick Becerra DO [Primary Care Provider] - Stand Alone Forms: Patient Portal/API/Survey
--- NOTE | 2024-12-13 00:53 | DI.CT.S_ITS ---
PROCEDURE: CT ABDOMEN PELVIS W CON INDICATIONS: abd pain after colonscopy, hx cirrhosis, esophageal varices TECHNIQUE: After the administration of intravenous contrast, axial sections acquired from the lung bases to the pubic symphysis. Coronal and sagittal reformats were performed. For radiation dose reduction, the following was used: automated exposure control, adjustment of mA and/or kV according to patient size. COMPARISON: [facility], CT, CT ABDOMEN PELVIS W CON, 10/17/2021, 19:57. [facility], CT, CT ABDOMEN PELVIS WITH CONTRAST, 05/08/2022, 13:37. FINDINGS: Image quality: Diagnostic Lower chest: Lower lungs appear unremarkable. Trace hiatal hernia. Periesophageal varices. Liver: Cirrhosis. No suspicious focal lesion. Right lobe granuloma again seen. Gallbladder and biliary system: Gallbladder is unremarkable. CBD measures 8 mm, mildly distended Pancreas: No ductal dilation Spleen: Borderline splenomegaly at 13 to 14 cm Adrenals: No discrete nodules Kidneys: No solid mass. No hydronephrosis. Vessels and lymph nodes: Portal venous varices and recanalization of the paraumbilical vein. Main portal vein appears patent. No abdominal aortic aneurysm. No pathologic lymphadenopathy by size criteria. Bowel and peritoneum: Mildly prominent fluid-filled loops of distal small bowel. No obstruction. Liquid colonic contents. Mild scattered colonic wall thickening. Nondilated appendix. Body wall: Unremarkable Pelvis: Uterus is absent. Under distended bladder not well assessed on this study Bones: Degenerative osseous changes. No aggressive appearing osseous abnormality. IMPRESSION: No pneumoperitoneum or significant ascites to suggest perforated bowel. Mild scattered colonic wall thickening may represent colitis or reactive changes to recent procedure. Liquid colonic contents are present, correlate for diarrhea. Prominent distal fluid-filled loops of small bowel, possibly additional enteritis. Cirrhosis and sequela of portal hypertension. Consider future HCC screening if clinically indicated. Other findings above. Dictated by: Kenny Cohn M.D. on 12/13/2024 at 1:27 Approved by: Kenny Cohn M.D. on 12/13/2024 at 1:31
[2024-12-13] MEDS: METOCLOPRAMIDE 10 MG/2 ML INJ IV (00:59)
[2024-12-13] MEDS: MORPHINE 4 MG/ML INJ IV (00:59)
[2024-12-13 01:00] VITALS: BP 123/74; PULSE 82; RESP 21; O2SAT 93
[2024-12-13] MEDS: SODIUM CHLORIDE 0.9% 1,000 ML 1000 ML IV (01:13)
[2024-12-13 01:27] VITALS: BP 124/94; PULSE 76; RESP 15; O2SAT 97
[2024-12-13 01:30] VITALS: BP 121/56; PULSE 78; RESP 17; O2SAT 97
[2024-12-13 01:46] LABS: Ictotest Urine Negative (Negative)
[2024-12-13 01:47] LABS: Bacteria Urine Many (>30); Culture Indicated Urine Specimen Cultured; RBC Urine 0-1/HPF (0-5/HPF); Squamous Epithelial Cell Urine 0-1 /HPF (0-5/HPF); Urine Volume 10mL (spun); WBC Urine 5-10/HPF (0-5/HPF)
[2024-12-13] MEDS: ONDANSETRON 4 MG ODT PREPACK 1 BOTTLE MISC (01:59)
[2024-12-13] MEDS: cephALEXin 250 MG CAPSULE 500 MG PO (01:59)
[2024-12-13 02:00] VITALS: BP 129/61; PULSE 70; RESP 19; O2SAT 97
== END 2024-12-13 02:09 | disposition home or self-care (01) ==
PROVIDERS: Emergency Provider Emergency Medicine; Family Provider Nurse Practitioner Family; PCP Family Medicine
DX: R11.2 Nausea with vomiting, unspecified (principal); R19.7 Diarrhea, unspecified; N39.0 Urinary tract infection, site not specified; Z98.890 Other specified postprocedural states
CPT/HCPCS: 36415; 74177; 80053; 81003; 81015; 81025; 83690; 85025; 85610; 87077; 87086; 87186; 93005; 96361; 96374; 96375; 99284; J2270; J2405; J2765; Q9967